=== PATIENT | female | born 1975 ===

== ENCOUNTER 2017-08-27 12:36 | Inpatient (IN) | payer MEDICAID ==
[2017-08-27 12:36] VITALS: BMI 37.8
[2017-08-27 14:34] LABS: VENOUS BLOOD GAS BASE EXCESS 1.2 mmol/L (0.0-2.0); VENOUS BLOOD GAS PCO2 41 mmHg (40-60); VENOUS BLOOD PH 7.41 (7.32-7.43)
[2017-08-27 14:40] LABS: BASO # 0.1 K/uL (0.0-0.2); BASO % 0.5 % (0.0-2.0); HEMATOCRIT 39.7 % (34.0-47.0); LYMPH # 0.8 K/uL (1.0-4.3); LYMPH % 7.1 % (20.0-40.0); MEAN CELL VOLUME 89.9 fl (81.0-99.0); MEAN CORPUSCULAR HEMOGLOBIN 29.8 pg (27.0-31.0); MEAN CORPUSCULAR HGB CONC 33.1 g/dL (33.0-37.0); MEAN PLATELET VOLUME 7.9 fl (7.2-11.7); MONO # 0.4 K/uL (0.0-0.8); MONO % 3.4 % (0.0-10.0); NEUT # 9.9 K/uL (1.8-7.0); NRBC % 0.1 % (0.0-0.0); PLATELET COUNT 248 K/uL (130-400); RED CELL DISTRIBUTION WIDTH 13.3 % (11.5-14.5); WHITE BLOOD COUNT 11.1 K/uL (4.8-10.8)
[2017-08-27 14:50] LABS: ALB/GLOB RATIO 1.3 (1.0-2.1); ALKALINE PHOSPHATASE 56 U/L (38-126); ALT/SGPT 29 U/L (9-52); AST/SGOT 22 U/L (14-36); BILIRUBIN,TOTAL 0.6 mg/dl (0.2-1.3); BLOOD UREA NITROGEN 15 mg/dl (7-17); CALCIUM 9.5 mg/dL (8.4-10.2); CARBON DIOXIDE 24 mmol/L (22-30); CHLORIDE 101 mmol/L (98-107); GFR AFRICAN-AMERICAN > 60; GLUCOSE,RANDOM 120 mg/dL (65-105); SODIUM 138 mmol/l (132-148); TOTAL PROTEIN 7.7 G/DL (6.3-8.2)
[2017-08-27 15:00] LABS: NEUTROPHIL 88 % (42-75); TOTAL CELLS COUNTED 100
[2017-08-27 15:18] LABS: THYROID STIMULATING HORMONE 0.67 mIU/ML (0.46-4.68)
[2017-08-27 15:22] LABS: RBC URINE 2 /hpf (0-3); URINE BACTERIA RARE (<OCC); URINE BILIRUBIN NEGATIVE (NEGATIVE); URINE BLOOD NEGATIVE (NEGATIVE); URINE COLOR STRAW (YELLOW); URINE GLUCOSE (UA) >=500 mg/dL (Normal); URINE KETONE 20 mg/dL (NEGATIVE); URINE LEUKOCYTE ESTERASE NEG Leu/uL (Negative); URINE PROTEIN 30 mg/dL (NEGATIVE); URINE UROBILINOGEN 0.2-1.0 mg/dL (0.2-1.0); WBC URINE 1 /hpf (0-5)
[2017-08-27] MEDS ORDERED: Piperacillin/Tazobact 3.375 GM in Sodium Chloride 0.9% 100 ML IVPB STA (15:30)
--- NOTE | 2017-08-27 15:47 | RAD ---
PROCEDURE: Radiographs of the left tibia and fibula. HISTORY: pain COMPARISON: None available. TECHNIQUE: Frontal and lateral views obtained. FINDINGS: BONES: No fracture or destructive lesion. JOINT SPACES: Unremarkable. OTHER FINDINGS: None. IMPRESSION: Unremarkable radiographs of the left tibia and fibula.
--- NOTE | 2017-08-27 15:48 | RAD ---
HISTORY: chest pain COMPARISON: Chest radiographs 07/10/2016 FINDINGS: LUNGS: No active pulmonary disease. PLEURA: No significant pleural effusion identified, no pneumothorax apparent. CARDIOVASCULAR: Normal. OSSEOUS STRUCTURES: No significant abnormalities. VISUALIZED UPPER ABDOMEN: Normal. OTHER FINDINGS: None. IMPRESSION: No interval acute cardiopulmonary disease appreciated.
--- NOTE | 2017-08-27 15:50 | US ---
HISTORY: Lower extremity pain. PRIORS: None. FINDINGS: 2-D, color and duplex Doppler analysis of the lower extremity venous circulation using routine protocol from the femoral veins through the popliteal veins. Venous compressibility: Normal. Flow and augmentation patterns: Normal. Visualized veins upper third of calf: Normal. Rodriguez cyst: None. Incidental finding(s): Morphologically, unremarkable lymph nodes. Left inguinal region IMPRESSION: No sonographic or Doppler evidence for DVT in left lower extremity.
--- NOTE | 2017-08-27 15:55 | ED PDOC ---
HPI: General Adult Time Seen by Provider: 08/27/17 13:51 Chief Complaint (Nursing): Lower Extremity Problem/Injury History Per: Patient, Supervisor Diagnostic (Shruthi Rodriguez) Additional Complaint(s): Pt. states earlier this week she sustained an atraumatic cut on her L foot. She was seen by Dr. Slade, manager commission, who told her to apply a cream to the cut but was not prescribed any oral antibiotics. States last night she develoepd a fever also she reports L leg pain that woke her up from sleep last night. Of note, pt. returned from [place] 2 weeks ago. Denies cough, congestion, abdominal pain, diarrhea, vomiting, hx of DVT or PE, chest pain, SOB, hemoptysis. Past Medical History Reviewed: Historical Data, Nursing Documentation, Vital Signs Vital Signs: Last Vital Signs Temp 98.0 F 08/27/17 18:33 Pulse 106 H 08/27/17 18:33 Resp 18 08/27/17 18:33 BP 134/81 08/27/17 18:33 Pulse Ox 96 08/27/17 18:33 - Medical History PMH: Diabetes, HTN, Hypercholesterolemia Denies: Chronic Kidney Disease - Surgical History Surgical History: (x1) - Family History Family History: States: No Known Family Hx - Immunization History Hx Tetanus Toxoid Vaccination: No Hx Influenza Vaccination: No Hx Pneumococcal Vaccination: No - Home Medications Home Medications: Ambulatory Orders Medication Instructions Recorded Atorvastatin [Lipitor] 20 mg PO HS 07/10/16 Empagliflozin [Jardiance] 25 mg PO DAILY 07/10/16 Ergocalciferol (Vitamin D2) 50,000 unit PO WE 07/10/16 [Vitamin D2] Valsartan [Diovan] 160 mg PO DAILY 07/10/16 FLUoxetine [Prozac] 20 mg PO DAILY 08/27/17 Famotidine [Pepcid] 20 mg PO DAILY 08/27/17 Ferrous Sulfate [Ferrous Sulfate] 325 mg PO BID 08/27/17 Glipizide [Glipizide ER] 2.5 mg PO DAILY 08/27/17 - Allergies Allergies/Adverse Reactions: Allergies Allergy/AdvReac Type Severity Reaction Status Date / Time ciprofloxacin [From Cipro] Allergy RASH Verified 07/10/16 11:38 ciprofloxacin HCl Allergy RASH Verified 11/03/16 11:38 [From Cipro] Review of Systems ROS Statement: Except As Marked, All Systems Reviewed And Found Negative Constitutional: Positive for: Fever Musculoskeletal: Positive for: Leg Pain Physical Exam - Reviewed Nursing Documentation Reviewed: Yes Vital Signs Reviewed: Yes - Physical Exam Appears: Positive for: Well, Non-toxic, No Acute Distress Head Exam: Positive for: ATRAUMATIC, NORMAL INSPECTION, NORMOCEPHALIC Skin: Positive for: Normal Color, Warm. Negative for: Rash Eye Exam: Positive for: EOMI, Normal appearance, PERRL ENT: Positive for: Normal ENT Inspection Neck: Positive for: Normal, Painless ROM Cardiovascular/Chest: Positive for: Regular Rate, Rhythm Respiratory: Positive for: CNT, Normal Breath Sounds Pulses-Dorsalis Pedis (L): 2+ Pulses-Dorsalis Pedis (R): 2+ Pulses-Femoral (L): 2+ Pulses-Femoral (R): 2+ Gastrointestinal/Abdominal: Positive for: Normal Exam, Bowel Sounds, Soft. Negative for: Tenderness Back: Positive for: Normal Inspection Extremity: Positive for: Normal ROM, Other (L medial surface of foot with linear superficial abrasion with surrounding erythema and swelling; L anterior leg with exquisite tenderness and faint erythema but no break in skin integrity ; no calf tenderness b/l). Negative for: Calf Tenderness (b/l) Neurologic/Psych: Positive for: Alert, Oriented - Laboratory Results Result Diagrams: 08/27/17 14:28 08/27/17 14:28 - ECG O2 Sat by Pulse Oximetry: 98 - Progress ED Course And Treament: Labs ordered. Duplex LLE ordered. CXR ordered. Zosyn IV, vancomycin IV ordered. Tylenol PO ordered. Pt. evaluated by Dr. Fletcher who recommends ESR and CRP. Pt. evaluated by Adilia, podiatry resident, who spoke with Dr. Slade and recommends 23 hr observation for IV abx. Duplex LLE vein: no DVT CXR: NAD Tib/Fib x-ray: no fx Case d/w Dr. Drew and arrangements made for 23 hr observation. Disposition - Clinical Impression Clinical Impression: Sepsis, Cellulitis - Patient ED Disposition Is Patient to be Admitted: No - Disposition Disposition Time: 16:38 Condition: FAIR - Pt Status Changed To: Hospital Disposition Of: Observation
--- NOTE | 2017-08-27 16:00 | CP.PCM.CON ---
History of Present Illness - History of Present Illness History of Present Illness: Podiatry Consult Note - Dr. Slade 41 year old female patient PMHx DM, HTN seen and evaluated in ED for left leg pain. Patient hemodynamically stable and NAD. Patient states in the middle of the night last night, her leg became red, hot, swollen, and painful. Denies any trauma to the area. Patient states her leg is extremely sensitive to touch and feels severe pain with pressure. States overnight she developed a fever as well which prompted her to present to [facility] ED. Patient also admits that earlier this week she sustained a superficial cut on the inside of her left heel. Patient states she saw Dr. Slade in office who told her to apply cream. Patient has no complaints to cut on left foot. Per chart, patient returned from [place] 2 weeks ago. Denies N/V/D/C/SOB. Review of Systems - Review of Systems All systems: reviewed and no additional remarkable complaints except (as per HPI ) Past Patient History - Infectious Disease Hx of Infectious Diseases: None - Past Medical History & Family History Past Medical History?: Yes - Past Social History Smoking Status: Never Smoked - CARDIAC Hx Hypercholesterolemia: Yes Hx Hypertension: Yes - PULMONARY Hx Respiratory Disorders: No - NEUROLOGICAL Hx Neurological Disorder: No - HEENT Hx HEENT Problems: No - RENAL Hx Chronic Kidney Disease: No - ENDOCRINE/METABOLIC Hx Endocrine Disorders: Yes Hx Diabetes Mellitus Type 2: Yes - HEMATOLOGICAL/ONCOLOGICAL Hx Blood Disorders: No - INTEGUMENTARY Hx Dermatological Problems: No - MUSCULOSKELETAL/RHEUMATOLOGICAL Hx Falls: No - GASTROINTESTINAL Hx Gastrointestinal Disorders: No - GENITOURINARY/GYNECOLOGICAL Hx Genitourinary Disorders: No - PSYCHIATRIC Hx Psychophysiologic Disorder: No Hx Substance Use: No - SURGICAL HISTORY Hx Surgeries: Yes Hx Section: Yes (x1) - ANESTHESIA Hx Anesthesia: Yes Hx Anesthesia Reactions: No Hx Malignant Hyperthermia: No Meds Allergies/Adverse Reactions: Allergies Allergy/AdvReac Type Severity Reaction Status Date / Time ciprofloxacin [From Cipro] Allergy RASH Verified 07/10/16 11:38 ciprofloxacin HCl Allergy RASH Verified 07/10/16 11:38 [From Cipro] - Medications Medications: Current Medications Vancomycin HCl 1 gm/ Sodium (Chloride) 250 mls @ 166.667 mls/hr IVPB STAT STA PRN Reason: Protocol Stop: 08/27/17 16:59 Last Admin: 08/27/17 15:59 Dose: 166.667 mls/hr Piperacillin Sod/Tazobactam (Sod 3.375 gm/ Sodium Chloride) 100 mls @ 100 mls/ hr IVPB STAT STA PRN Reason: Protocol Stop: 08/27/17 16:29 Physical Exam - Constitutional Appears: Well, Non-toxic, No Acute Distress - Extremities Exam Additional comments: VASC: DP and PT pulses palpable 2/4 b/l. CFT <3 seconds to all digits x10. Temperature warm to warm to RLE, hot to warm LLE. Increase in warmth noted circumfirentially around proximal half of left lower leg. Non-pitting edema noted to proximal half of left lower leg. No increase in warmth noted to superficial laceration medial aspect of left heel. NEURO: Gross sensation intact. DERM: Superficial laceration measuring approximately 3cm noted to medial aspect of left calcaneus; no drainage, purulence, fluctuance, undermining, tunneling, periwound erythema; no clinical signs of infection noted to laceration site. Proximal half of left lower leg appears erythematous with no open lesions noted. ORTHO: Severe pain on palpation erythematous skin left lower leg. Muscle strength 5/5 for all dorsiflexors, plantarflexors, inverters, and everters b/l. - Neurological Exam Neurological exam: Alert, Oriented x3 - Psychiatric Exam Psychiatric exam: Normal Affect, Normal Mood Results - Vital Signs Recent Vital Signs: Last Vital Signs Temp 101.4 F H 08/27/17 14:55 Pulse 110 H 08/27/17 14:55 Resp 17 08/27/17 14:43 BP 113/81 08/27/17 14:43 Pulse Ox 98 08/27/17 15:59 - Labs Result Diagrams: 08/27/17 14:28 08/27/17 14:28 Labs: Laboratory Results - last 24 hr 08/27/17 08/27/17 08/27/17 14:18 14:28 14:28 WBC 11.1 H D RBC 4.42 Hgb 13.2 Hct 39.7 MCV 89.9 MCH 29.8 MCHC 33.1 RDW 13.3 Plt Count 248 MPV 7.9 Neut % (Auto) 89.0 H Lymph % (Auto) 7.1 L [place] % (Auto) 3.4 Eos % (Auto) 0.0 Baso % (Auto) 0.5 Neut # 9.9 H Lymph # 0.8 L [place] # 0.4 Eos # 0.0 Baso # 0.1 Neutrophils % (Manual) 88 H Lymphocytes % (Manual) 9 L Monocytes % (Manual) 3 Platelet Estimate Normal RBC Morphology Normal pO2 20 L VBG pH 7.41 VBG pCO2 41 VBG HCO3 24.1 VBG Total CO2 27.3 VBG O2 Sat (Calc) 39.4 L VBG Base Excess 1.2 VBG Potassium 3.9 A-a O2 Difference 78.0 Sodium 135.0 138 Chloride 102.0 101 Glucose 128 H Lactate 2.0 FiO2 21.0 Crit Value Called To [place] Crit Value Called By 15 Crit Value Read Back Y Blood Gas Notified Time 1433 Potassium 4.0 Carbon Dioxide 24 Anion Gap 17 BUN 15 Creatinine 0.6 L Est GFR ( Amer) > 60 Est GFR (Non-Af Amer) > 60 Random Glucose 120 H Calcium 9.5 Total Bilirubin 0.6 AST 22 ALT 29 Alkaline Phosphatase 56 Total Protein 7.7 Albumin 4.3 Globulin 3.4 Albumin/Globulin Ratio 1.3 TSH 3rd Generation 0.67 Venous Blood Potassium 3.9 Urine Color Urine Clarity Urine pH Ur Specific [place] Urine Protein Urine Glucose (UA) Urine Ketones Urine Blood Urine Nitrate Urine Bilirubin Urine Urobilinogen Ur Leukocyte Esterase Urine RBC (Auto) Urine Microscopic WBC Ur Squamous Epith Cells Urine Bacteria 08/27/17 15:09 WBC RBC Hgb Hct MCV MCH MCHC RDW Plt Count MPV Neut % (Auto) Lymph % (Auto) [place] % (Auto) Eos % (Auto) Baso % (Auto) Neut # Lymph # [place] # Eos # Baso # Neutrophils % (Manual) Lymphocytes % (Manual) Monocytes % (Manual) Platelet Estimate RBC Morphology pO2 VBG pH VBG pCO2 VBG HCO3 VBG Total CO2 VBG O2 Sat (Calc) VBG Base Excess VBG Potassium A-a O2 Difference Sodium Chloride Glucose Lactate FiO2 Crit Value Called To Crit Value Called By Crit Value Read Back Blood Gas Notified Time Potassium Carbon Dioxide Anion Gap BUN Creatinine Est GFR ( Amer) Est GFR (Non-Af Amer) Random Glucose Calcium Total Bilirubin AST ALT Alkaline Phosphatase Total Protein Albumin Globulin Albumin/Globulin Ratio TSH 3rd Generation Venous Blood Potassium Urine Color Straw Urine Clarity Clear Urine pH 7.0 Ur Specific [place] 1.018 Urine Protein 30 Urine Glucose (UA) >=500 Urine Ketones 20 Urine Blood Negative Urine Nitrate Negative Urine Bilirubin Negative Urine Urobilinogen 0.2-1.0 Ur Leukocyte Esterase Neg Urine RBC (Auto) 2 Urine Microscopic WBC 1 Ur Squamous Epith Cells 2 Urine Bacteria Rare Assessment & Plan - Assessment and Plan (Free Text) Assessment: 41 year old female PMHx DM, HTN with 1) left leg cellulitis and 2) left foot superficial laceration, stable Plan: Patient seen and evaluated in ED Patient febrile in ED at 101.4, leukocytosis @ 11.1 L venous duplex reviewed - negative for DVT L tib-fib XR reviewed - unremarkable IV abx started in ED = Vancomycin, Zosyn Bacitracin applied to L medial heel laceration and dressed with DSD Discussed with attending, Dr. Slade, who recommends patient to be admitted for observation for IV abx. Patient agrees with plan. Podiatry will continue to follow patient while in house
[2017-08-27] MEDS: Insulin Regular 100 units/ml SC SCH (21:50)
[2017-08-27] MEDS: Enoxaparin 40 mg Syringe SC SCH (21:54)
[2017-08-28] MEDS: Piperacillin/Tazobact 3.375 GM in Sodium Chloride 0.9% 100 ML IVPB SCH ×3 (01:07→17:13)
[2017-08-28 05:55] LABS: BASO % 0.6 % (0.0-2.0); EOS # 0.1 K/uL (0.0-0.7); HEMATOCRIT 37.3 % (34.0-47.0); LYMPH % 17.1 % (20.0-40.0); MEAN CORPUSCULAR HEMOGLOBIN 29.8 pg (27.0-31.0); MEAN CORPUSCULAR HGB CONC 32.8 g/dL (33.0-37.0); MEAN PLATELET VOLUME 7.7 fl (7.2-11.7); MONO # 0.5 K/uL (0.0-0.8); MONO % 8.3 % (0.0-10.0); NEUT # 4.1 K/uL (1.8-7.0); NRBC % 0.1 % (0.0-0.0); RED CELL DISTRIBUTION WIDTH 13.2 % (11.5-14.5); WHITE BLOOD COUNT 5.6 K/uL (4.8-10.8)
--- NOTE | 2017-08-28 06:23 | CP.PCM.PN ---
Subjective - Date & Time of Evaluation Date of Evaluation: 08/28/17 Time of Evaluation: 06:23 - Subjective Subjective: Podiatry Progress Note - Dr. Slade 41 year old female patient PMHx DM, HTN seen and evaluated in ED for LLE cellulitis. Patient hemodynamically stable and NAD. Denies any acute events overnight. Patient reports continued pain and increased sensitivity to her left leg however significantly decreased from yesterday. Patient now complaining of pain, redness, and swelling to her left heel. Of note, patient states that she sustained the cut on her left heel approximately 2 weeks ago and states that when she was walking on it, the cut kept "spreading out and ," preventing closure of the wound. Patient states she was putting cream on the cut prior to presentation however is not able to recall its name. Denies N/V/F/D /C/SOB/calf pain. Objective - Vital Signs/Intake and Output Vital Signs (last 24 hours): Temp Pulse Resp BP Pulse Ox 98.7 F 88 19 112/76 96 08/28/17 01:00 08/28/17 01:00 08/28/17 01:00 08/28/17 01:00 08/28/17 01:00 - Medications Medications: Current Medications Atorvastatin Calcium (Lipitor) 20 mg PO HS [facility] Last Admin: 08/27/17 21:52 Dose: 20 mg Enoxaparin Sodium (Lovenox) 40 mg SC DAILY MATTHEW PRN Reason: Protocol Last Admin: 08/27/17 21:54 Dose: 40 mg Ergocalciferol (Drisdol 50,000 Intl Units Cap) 1 cap PO WE MATTHEW Famotidine (Pepcid) 20 mg PO DAILY MATTHEW Ferrous Sulfate (Feosol) 325 mg PO BID MATTHEW Fluoxetine HCl (Prozac) 20 mg PO DAILY MATTHEW Glipizide (Glucotrol Xl) 2.5 mg PO DAILY MATTHEW Vancomycin HCl 1 gm/ Sodium (Chloride) 250 mls @ 166.667 mls/hr IVPB Q12H MATTHEW PRN Reason: Protocol Last Admin: 08/28/17 03:28 Dose: 166.667 mls/hr Piperacillin Sod/Tazobactam (Sod 3.375 gm/ Sodium Chloride) 100 mls @ 100 mls/ hr IVPB Q8 MATTHEW PRN Reason: Protocol Last Admin: 08/28/17 01:07 Dose: 100 mls/hr Insulin Human Regular (Humulin R) 0 units SC ACHS MATTHEW PRN Reason: Protocol Last Admin: 08/27/17 21:50 Dose: Not Given Morphine Sulfate (Morphine) 2 mg IVP Q6 PRN PRN Reason: Pain, severe (8-10) Last Admin: 08/27/17 21:52 Dose: 2 mg Morphine Sulfate (Morphine) 1 mg IVP Q6 PRN PRN Reason: Pain, moderate (4-7) Ondansetron HCl (Zofran Inj) 4 mg IVP Q6 PRN PRN Reason: Nausea/Vomiting Valsartan (Diovan) 160 mg PO DAILY MATTHEW - Labs Labs: 08/28/17 05:40 08/27/17 14:28 - Constitutional Appears: Well, Non-toxic, No Acute Distress - Extremities Exam Additional comments: VASC: DP and PT pulses palpable 2/4 b/l. CFT <3 seconds to all digits x10. Temperature warm to warm to RLE; hot to warm LLE. Increase in warmth noted circumfirentially around proximal half of left lower leg however decreased from yesterday. Non-pitting edema noted to proximal half of left lower leg. Increase in warmth noted to superficial laceration medial aspect of left heel. NEURO: Gross sensation intact. DERM: Superficial laceration measuring approximately 3cm noted to medial aspect of left calcaneus; periwound erythema present; no drainage, purulence, fluctuance, undermining, tunneling; no clinical signs of infection noted to laceration site. Proximal half of left lower leg appears erythematous with no open lesions noted, decreasing ORTHO: Severe pain on palpation erythematous skin left lower leg. Pain on palpation left medial calcaneus. Muscle strength 5/5 for all dorsiflexors, plantarflexors, inverters, and everters b/l. - Neurological Exam Neurological Exam: Alert, Awake, Oriented x3 - Psychiatric Exam Psychiatric exam: Normal Affect, Normal Mood Assessment and Plan - Assessment and Plan (Free Text) Assessment: 41 year old female PMHx DM, HTN with 1) left leg cellulitis and 2) left foot superficial laceration Plan: Patient seen and evaluated in ED Discussed with attending, Dr. Slade Patient currently afebrile, WBC WNL 5.6 (yesterday 11.1) ESR 49, CRP 68.9 L venous duplex reviewed - negative for DVT L tib-fib XR reviewed - unremarkable Continue IV abx per medicine = Vancomycin, Zosyn Bacitracin applied to L medial heel laceration and dressed with DSD Podiatry will continue to follow patient while in house
[2017-08-28 06:57] LABS: BLOOD UREA NITROGEN 14 mg/dl (7-17); CALCIUM 8.8 mg/dL (8.4-10.2); CARBON DIOXIDE 27 mmol/L (22-30); CHLORIDE 102 mmol/L (98-107); GFR AFRICAN-AMERICAN > 60; GLUCOSE,RANDOM 136 mg/dL (65-105); MAGNESIUM 1.9 MG/DL (1.6-2.3); POTASSIUM 4.6 MMOL/L (3.6-5.0); SODIUM 136 mmol/l (132-148)
[2017-08-28] MEDS: Insulin Regular 100 units/ml SC SCH ×4 (07:01→21:30)
[2017-08-28 07:26] LABS: THYROID STIMULATING HORMONE 1.01 mIU/ML (0.46-4.68)
[2017-08-28] MEDS: GlipiZIDE 2.5 mg SR Tab PO SCH (08:54)
[2017-08-28] MEDS: Enoxaparin 40 mg Syringe SC SCH (08:55)
--- NOTE | 2017-08-28 17:57 | CP.PCM.HP ---
History of Present Illness - History of Present Illness History of Present Illness: CC: Fever and Leg Pain History of PResent Illness: A 41yoF with H/O DM II was in her [place] until earlier this week when she sustained an a traumatic cut on her L foot. She was seen by Dr. Slade, body mechanic apprentice, who told her to apply a cream to the cut but was not prescribed any oral antibiotics. States last night she developed a fever. Also she reports L leg pain 10/10 that woke her up from sleep last night. Recent travel to [place] 2 weeks ago. Denies cough, congestion, abdominal pain, diarrhea, vomiting, DVT or PE, chest pain, SOB, hemoptysis. Pain is relieved by IV morphine to 3-4/ 10. Present on Admission - Present on Admission Any Indicators Present on Admission: Yes History of DVT/PE: No History of Uncontrolled Diabetes: Yes Urinary Catheter: No Decubitus Ulcer Present: No Review of Systems - Review of Systems All systems: reviewed and no additional remarkable complaints except Past Patient History - Infectious Disease Hx of Infectious Diseases: None - Past Medical History & Family History Past Medical History?: Yes Past Family History: Reviewed and not pertinent - Past Social History Smoking Status: Never Smoked Alcohol: None Drugs: Denies - CARDIAC Hx Hypercholesterolemia: Yes Hx Hypertension: Yes - PULMONARY Hx Respiratory Disorders: No - NEUROLOGICAL Hx Neurological Disorder: No - HEENT Hx HEENT Problems: No - RENAL Hx Chronic Kidney Disease: No - ENDOCRINE/METABOLIC Hx Endocrine Disorders: Yes Hx Diabetes Mellitus Type 2: Yes - HEMATOLOGICAL/ONCOLOGICAL Hx Blood Disorders: No - INTEGUMENTARY Hx Dermatological Problems: No - MUSCULOSKELETAL/RHEUMATOLOGICAL Hx Falls: No - GASTROINTESTINAL Hx Gastrointestinal Disorders: No - GENITOURINARY/GYNECOLOGICAL Hx Genitourinary Disorders: No - PSYCHIATRIC Hx Psychophysiologic Disorder: No Hx Substance Use: No - SURGICAL HISTORY Hx Surgeries: Yes Hx Section: Yes (x1) - ANESTHESIA Hx Anesthesia: Yes Hx Anesthesia Reactions: No Hx Malignant Hyperthermia: No Meds Allergies/Adverse Reactions: Allergies Allergy/AdvReac Type Severity Reaction Status Date / Time ciprofloxacin [From Cipro] Allergy RASH Verified 07/10/16 11:38 ciprofloxacin HCl Allergy RASH Verified 07/10/16 11:38 [From Cipro] Physical Exam - Constitutional Appears: Well, No Acute Distress - Head Exam Head Exam: ATRAUMATIC, NORMAL INSPECTION, NORMOCEPHALIC - Eye Exam Eye Exam: EOMI, Normal appearance, PERRL Pupil Exam: NORMAL ACCOMODATION, PERRL - ENT Exam ENT Exam: Mucous Membranes Moist, Normal Exam - Neck Exam Neck exam: Positive for: Normal Inspection - Respiratory Exam Respiratory Exam: Clear to Auscultation Bilateral, NORMAL BREATHING PATTERN - Cardiovascular Exam Cardiovascular Exam: REGULAR RHYTHM, +S1, +S2 - GI/Abdominal Exam GI & Abdominal Exam: Normal Bowel Sounds, Soft. absent: Tenderness - Exam External exam: NORMAL EXTERNAL EXAM - Extremities Exam Additional comments: Left Leg Linear Superficial Ulceration with Warm extending to lower Leg with severe tenderness. - Back Exam Back exam: NORMAL INSPECTION. absent: CVA tenderness (L), CVA tenderness (R) - Neurological Exam Neurological exam: Alert, CN II-XII Intact, Normal Gait, Oriented x3, Reflexes Normal - Psychiatric Exam Psychiatric exam: Normal Affect, Normal Mood - Skin Skin Exam: Dry, Intact, Normal Color, Warm Results - Vital Signs Recent Vital Signs: Last Vital Signs Temp 97.9 F 08/28/17 16:20 Pulse 72 08/28/17 16:20 Resp 18 08/28/17 16:20 BP 124/80 08/28/17 16:20 Pulse Ox 97 08/28/17 16:20 - Labs Result Diagrams: 08/28/17 05:40 08/28/17 05:40 Labs: Laboratory Results - last 24 hr 08/27/17 08/27/17 08/27/17 16:57 17:30 17:30 WBC RBC Hgb Hct MCV MCH MCHC RDW Plt Count MPV Neut % (Auto) Lymph % (Auto) [place] % (Auto) Eos % (Auto) Baso % (Auto) Neut # Lymph # [place] # Eos # Baso # ESR 49 H Sodium Potassium Chloride Carbon Dioxide Anion Gap BUN Creatinine Est GFR ( Amer) Est GFR (Non-Af Amer) POC Glucose (mg/dL) Random Glucose Hemoglobin A1c Calcium Magnesium C-Reactive Prot, Quant 68.9 H TSH 3rd Generation Influenza Typ A,B (EIA) Negative for flu a/b 08/27/17 08/28/17 08/28/17 21:40 05:40 05:40 WBC 5.6 RBC 4.10 Hgb 12.2 Hct 37.3 MCV 91.0 MCH 29.8 MCHC 32.8 L RDW 13.2 Plt Count 213 MPV 7.7 Neut % (Auto) 73.0 Lymph % (Auto) 17.1 L [place] % (Auto) 8.3 Eos % (Auto) 1.0 Baso % (Auto) 0.6 Neut # 4.1 Lymph # 1.0 [place] # 0.5 Eos # 0.1 Baso # 0.0 ESR Sodium 136 Potassium 4.6 Chloride 102 Carbon Dioxide 27 Anion Gap 12 BUN 14 Creatinine 0.8 Est GFR ( Amer) > 60 Est GFR (Non-Af Amer) > 60 POC Glucose (mg/dL) 108 Random Glucose 136 H Hemoglobin A1c Calcium 8.8 Magnesium 1.9 C-Reactive Prot, Quant TSH 3rd Generation 1.01 Influenza Typ A,B (EIA) 08/28/17 08/28/17 08/28/17 05:40 06:18 10:56 WBC RBC Hgb Hct MCV MCH MCHC RDW Plt Count MPV Neut % (Auto) Lymph % (Auto) [place] % (Auto) Eos % (Auto) Baso % (Auto) Neut # Lymph # [place] # Eos # Baso # ESR Sodium Potassium Chloride Carbon Dioxide Anion Gap BUN Creatinine Est GFR ( Amer) Est GFR (Non-Af Amer) POC Glucose (mg/dL) 133 H 172 H Random Glucose Hemoglobin A1c 7.4 H D Calcium Magnesium C-Reactive Prot, Quant TSH 3rd Generation Influenza Typ A,B (EIA) 08/28/17 15:49 WBC RBC Hgb Hct MCV MCH MCHC RDW Plt Count MPV Neut % (Auto) Lymph % (Auto) [place] % (Auto) Eos % (Auto) Baso % (Auto) Neut # Lymph # [place] # Eos # Baso # ESR Sodium Potassium Chloride Carbon Dioxide Anion Gap BUN Creatinine Est GFR ( Amer) Est GFR (Non-Af Amer) POC Glucose (mg/dL) 134 H Random Glucose Hemoglobin A1c Calcium Magnesium C-Reactive Prot, Quant TSH 3rd Generation Influenza Typ A,B (EIA) - Imaging and Cardiology Venous US Status: Report reviewed by me Additional comment: LE: No DVT Left Tibia/Fibula X-ray Status: Report reviewed by me Additional comment: IMPRESSION: Unremarkable radiographs of the left tibia and fibula. Assessment & Plan (1) Foot ulcer, left Assessment and Plan: with Cellulitis R/O OM Blood and wound Culture IV Vancomycin/Zosyn Pain Medication PRN MRI of the Left Foot R/O OM Rn Clinician On board Status: Acute Priority: High (2) Diabetes mellitus Status: Chronic (3) Essential hypertension Status: Chronic Priority: Low (4) DVT (deep venous thrombosis) Status: Chronic Priority: Low
[2017-08-29] MEDS: Piperacillin/Tazobact 3.375 GM in Sodium Chloride 0.9% 100 ML IVPB SCH ×3 (01:59→17:03)
[2017-08-29] MEDS: Insulin Regular 100 units/ml SC SCH ×4 (06:57→21:49)
[2017-08-29] MEDS: Enoxaparin 40 mg Syringe SC SCH (09:45)
[2017-08-29] MEDS: GlipiZIDE 2.5 mg SR Tab PO SCH (09:45)
--- NOTE | 2017-08-29 11:51 | MRI ---
EXAM: MR Left Lower Extremity Without Intravenous Contrast, Foot CLINICAL HISTORY: 41 years old, female; Signs and symptoms; Cellulitis; Ankle; Left; Additional info: R/O om; Left foot cellulitis and wound TECHNIQUE: Multiplanar magnetic resonance images of the left foot without intravenous contrast. COMPARISON: No relevant prior studies available. FINDINGS: LIGAMENTS: Medial collateral: Unremarkable. Lateral collateral: Unremarkable. Lisfranc: Unremarkable. TENDONS: Flexor: There is fluid along the posterior aspect of the flexor hallucis longus tendon representing tenosynovitis. No signal is seen within the tendon to suggest tendon tear. This fluid is poorly defined to be a ganglion cyst. The tendon itself appears intact. Extensor: Unremarkable. Peroneal: Unremarkable. Tibialis anterior: Unremarkable. Tibialis posterior: Unremarkable. Muscles: Unremarkable. Fluid: Unremarkable. No joint effusion. Sinus tarsi: Unremarkable. Tarsal tunnel: Unremarkable. Plantar fascia: Unremarkable. Cartilage: Unremarkable. Bones/joints: There is tarsal bossing with degenerative changes involving the talonavicular joint. There is mild flattening of the midfoot. Soft tissues: The subcutaneous soft tissues demonstrate edema involving the mid and posterior aspect of the medial soft tissues of the ankle representing edema versus cellulitis. Other findings: A marker is placed on the medial aspect of the foot. IMPRESSION: 1. The subcutaneous soft tissues demonstrate edema involving the mid and posterior aspect of the medial soft tissues of the ankle representing edema versus cellulitis. 2. There is fluid along the posterior aspect of the flexor hallucis longus tendon representing tenosynovitis. No signal is seen within the tendon to suggest tendon tear. This fluid is poorly defined to be a ganglion cyst. The tendon itself appears intact. 3. No evidence of abscess or osteomyelitis.
--- NOTE | 2017-08-29 16:29 | CP.PCM.PN ---
Subjective - Date & Time of Evaluation Date of Evaluation: 08/29/17 Time of Evaluation: 12:15 - Subjective Subjective: Podiatry Progress Note - Dr. Slade 41 year old female with PMHx of DM, HTN seen and evaluated for LLE cellulitis. Patient is AAOx3 and is in NAD. Denies any acute events overnight. Patient reports continued pain and increased sensitivity to her left leg however significantly decreased from yesterday. Patient agrees that the redness has decreased since yesterday as well. Denies N/V/F/D/C/SOB/calf pain. Objective - Vital Signs/Intake and Output Vital Signs (last 24 hours): Temp Pulse Resp BP Pulse Ox 97.5 F L 78 17 124/89 97 08/29/17 15:45 08/29/17 15:45 08/29/17 15:45 08/29/17 15:45 08/29/17 15:45 - Medications Medications: Current Medications Atorvastatin Calcium (Lipitor) 20 mg PO HS [facility] Last Admin: 08/28/17 21:30 Dose: 20 mg Enoxaparin Sodium (Lovenox) 40 mg SC DAILY [facility] PRN Reason: Protocol Last Admin: 08/29/17 09:45 Dose: 40 mg Ergocalciferol (Drisdol 50,000 Intl Units Cap) 1 cap PO [facility] Famotidine (Pepcid) 20 mg PO DAILY [facility] Last Admin: 08/29/17 09:45 Dose: 20 mg Ferrous Sulfate (Feosol) 325 mg PO BID [facility] Last Admin: 08/29/17 09:45 Dose: 325 mg Fluoxetine HCl (Prozac) 20 mg PO DAILY [facility] Last Admin: 08/29/17 09:45 Dose: 20 mg Glipizide (Glucotrol Xl) 2.5 mg PO DAILY [facility] Last Admin: 08/29/17 09:45 Dose: 2.5 mg Vancomycin HCl 1 gm/ Sodium (Chloride) 250 mls @ 166.667 mls/hr IVPB Q12H [facility] PRN Reason: Protocol Last Admin: 08/29/17 03:55 Dose: 166.667 mls/hr Piperacillin Sod/Tazobactam (Sod 3.375 gm/ Sodium Chloride) 100 mls @ 100 mls/ hr IVPB Q8 [facility] PRN Reason: Protocol Last Admin: 08/29/17 09:44 Dose: 100 mls/hr Insulin Human Regular (Humulin R) 0 units SC ACHS [facility] PRN Reason: Protocol Last Admin: 08/29/17 11:41 Dose: 1 unit Morphine Sulfate (Morphine) 2 mg IVP Q6 PRN PRN Reason: Pain, severe (8-10) Last Admin: 08/29/17 07:41 Dose: 2 mg Morphine Sulfate (Morphine) 1 mg IVP Q6 PRN PRN Reason: Pain, moderate (4-7) Ondansetron HCl (Zofran Inj) 4 mg IVP Q6 PRN PRN Reason: Nausea/Vomiting Valsartan (Diovan) 160 mg PO DAILY [facility] Last Admin: 08/29/17 09:45 Dose: 160 mg - Labs Labs: 08/28/17 05:40 08/28/17 05:40 - Constitutional Appears: Well, Non-toxic, No Acute Distress - Extremities Exam Additional comments: VASC: DP and PT pulses palpable 2/4 b/l. CFT <3 seconds to all digits x10. Temperature warm to warm to RLE; hot to warm LLE. Increase in warmth noted circumfirentially around proximal half of left lower leg however decreased from yesterday. Non-pitting edema noted to proximal half of left lower leg. Increase in warmth noted to superficial laceration medial aspect of left heel. DERM: Superficial laceration measuring approximately 3cm noted to medial aspect of left calcaneus; no drainage, purulence, fluctuance, undermining, tunneling; no clinical signs of infection noted to laceration site. Proximal half of left lower leg appears erythematous with no open lesions noted - this appears to be decreasing NEURO: Gross sensation intact. ORTHO: pain on palpation mildly erythematous skin on left lower leg. Muscle strength 5/5 for all dorsiflexors, plantarflexors, inverters, and everters b/l. - Neurological Exam Neurological Exam: Alert, Awake, Oriented x3 - Psychiatric Exam Psychiatric exam: Normal Affect, Normal Mood Assessment and Plan - Assessment and Plan (Free Text) Assessment: 41 year old female with PMHx of DM, HTN with 1) left leg cellulitis and 2) left foot superficial laceration Plan: Patient seen and evaluated in ED Discussed with attending, Dr. Slade Patient currently afebrile, WBC WNL 5.6 (as of yesterday) ESR 49, CRP 68.9 L venous duplex reviewed - negative for DVT L tib-fib XR reviewed - unremarkable L MRI: No evidence of OM Continue IV abx per medicine = Vancomycin, Zosyn Bacitracin applied to L medial heel laceration and dressed with DSD Patient is stable from podiatry standpoint Follow up with Dr. Slade once discharged from the hospital Podiatry will continue to follow patient while in house
[2017-08-30] MEDS: Piperacillin/Tazobact 3.375 GM in Sodium Chloride 0.9% 100 ML IVPB SCH ×3 (01:58→16:43)
[2017-08-30] MEDS: Insulin Regular 100 units/ml SC SCH ×4 (06:54→22:09)
[2017-08-30] MEDS: Enoxaparin 40 mg Syringe SC SCH (08:51)
[2017-08-30] MEDS: GlipiZIDE 2.5 mg SR Tab PO SCH (08:51)
--- NOTE | 2017-08-30 14:52 | CP.PCM.PN ---
Subjective - Date & Time of Evaluation Date of Evaluation: 08/30/17 Time of Evaluation: 14:43 - Subjective Subjective: Podiatry Progress Note - Dr. Slade 41 year old female with PMHx of DM, HTN seen and evaluated for LLE cellulitis. Patient is AAOx3 and is in NAD. Denies any acute events overnight. Patient reports continued pain and increased sensitivity to her left leg however significantly decreased from yesterday. Patient agrees that the redness has resolved completely. Admits that she has pain when she moves her toes on the back of his ankle. States that she is scared to put her weight down. Denies N/V/ F/D/C/SOB/calf pain. Objective - Vital Signs/Intake and Output Vital Signs (last 24 hours): Temp Pulse Resp BP Pulse Ox 98.0 F 84 18 123/59 L 97 08/30/17 07:20 08/30/17 07:20 08/30/17 07:20 08/30/17 07:20 08/30/17 07:20 - Medications Medications: Current Medications Atorvastatin Calcium (Lipitor) 20 mg PO HS [facility] Last Admin: 08/29/17 21:50 Dose: 20 mg Enoxaparin Sodium (Lovenox) 40 mg SC DAILY [facility] PRN Reason: Protocol Last Admin: 08/30/17 08:51 Dose: 40 mg Ergocalciferol (Drisdol 50,000 Intl Units Cap) [address] [facility] Famotidine (Pepcid) 20 mg PO DAILY [facility] Last Admin: 08/30/17 08:56 Dose: 20 mg Ferrous Sulfate (Feosol) 325 mg PO BID [facility] Last Admin: 08/30/17 08:51 Dose: 325 mg Fluoxetine HCl (Prozac) 20 mg PO DAILY [facility] Last Admin: 08/30/17 08:56 Dose: 20 mg Glipizide (Glucotrol Xl) 2.5 mg PO DAILY [facility] Last Admin: 08/30/17 08:51 Dose: 2.5 mg Piperacillin Sod/Tazobactam (Sod 3.375 gm/ Sodium Chloride) 100 mls @ 100 mls/ hr IVPB Q8 [facility] PRN Reason: Protocol Last Admin: 08/30/17 09:08 Dose: 100 mls/hr Vancomycin HCl 1 gm/ Sodium (Chloride) 250 mls @ 166.667 mls/hr IVPB Q12@0500, 1700 [facility] PRN Reason: Protocol Last Admin: 08/30/17 04:02 Dose: 166.667 mls/hr Insulin Human Regular (Humulin R) 0 units SC ACHS [facility] PRN Reason: Protocol Last Admin: 08/30/17 12:36 Dose: 2 unit Morphine Sulfate (Morphine) 2 mg IVP Q6 PRN PRN Reason: Pain, severe (8-10) Last Admin: 08/30/17 09:07 Dose: 2 mg Morphine Sulfate (Morphine) 1 mg IVP Q6 PRN PRN Reason: Pain, moderate (4-7) Ondansetron HCl (Zofran Inj) 4 mg IVP Q6 PRN PRN Reason: Nausea/Vomiting Valsartan (Diovan) 160 mg PO DAILY [facility] Last Admin: 08/30/17 08:51 Dose: 160 mg - Labs Labs: 08/28/17 05:40 08/28/17 05:40 - Constitutional Appears: Well, Non-toxic, No Acute Distress - Extremities Exam Additional comments: VASC: DP and PT pulses palpable 2/4 b/l. CFT <3 seconds to all digits x10. Temperature warm to warm to RLE; warm to warm on LLE. minimal Non-pitting edema noted to proximal half of left lower leg which appears to be resolving from yesterday DERM: Superficial laceration measuring approximately 3cm noted to medial aspect of left calcaneus; no drainage, purulence, fluctuance, undermining, tunneling; no clinical signs of infection noted to laceration site. Proximal half of left lower leg appears erythematous with no open lesions noted - this appears to be resolved NEURO: Gross sensation intact. ORTHO: pain on palpation of the posterior ankle and during ROM at the level of MTPJ as well as ankle joint. Muscle strength 5/5 for all dorsiflexors, plantarflexors, inverters, and everters b/l. - Neurological Exam Neurological Exam: Alert, Awake, Oriented x3 - Psychiatric Exam Psychiatric exam: Normal Affect, Normal Mood Assessment and Plan - Assessment and Plan (Free Text) Assessment: 41 year old female with PMHx of DM, HTN with 1) left leg cellulitis and 2) left foot superficial laceration Plan: Patient seen and evaluated in ED Discussed with attending, Dr. Slade Patient currently afebrile, WBC WNL 5.6 (as of 08/28) ESR 49, CRP 68.9 L venous duplex reviewed - negative for DVT L tib-fib XR reviewed - unremarkable L MRI: No evidence of OM Continue IV abx per medicine = Vancomycin, Zosyn Bacitracin applied to L medial heel laceration and dressed with DSD Patient is stable from podiatry standpoint Follow up with Dr. Slade once discharged from the hospital Podiatry will continue to follow patient while in house
[2017-08-30 17:53] LABS: RBC URINE 300 /hpf (0-3); URINE BACTERIA RARE (<OCC); URINE BILIRUBIN NEGATIVE (NEGATIVE); URINE BLOOD LARGE (NEGATIVE); URINE COLOR YELLOW (YELLOW); URINE GLUCOSE (UA) >=500 mg/dL (Normal); URINE KETONE NEGATIVE (NEGATIVE); URINE LEUKOCYTE ESTERASE TRACE Leu/uL (Negative); URINE PROTEIN 30 mg/dL (NEGATIVE); URINE UROBILINOGEN 0.2-1.0 mg/dL (0.2-1.0); WBC URINE 12 /hpf (0-5)
--- NOTE | 2017-08-31 00:23 | CP.PCM.PN ---
Subjective - Date & Time of Evaluation Date of Evaluation: 08/29/17 Time of Evaluation: 17:15 Objective - Vital Signs/Intake and Output Vital Signs (last 24 hours): Temp Pulse Resp BP Pulse Ox 98.1 F 77 20 124/81 96 08/30/17 15:30 08/30/17 15:30 08/30/17 15:30 08/30/17 15:30 08/30/17 15:30 - Medications Medications: Current Medications Atorvastatin Calcium (Lipitor) 20 mg PO HS [facility] Last Admin: 08/30/17 22:09 Dose: 20 mg Ergocalciferol (Drisdol 50,000 Intl Units Cap) 1 cap PO [facility] Famotidine (Pepcid) 20 mg PO DAILY [facility] Last Admin: 08/30/17 08:56 Dose: 20 mg Ferrous Sulfate (Feosol) 325 mg PO BID [facility] Last Admin: 08/30/17 16:43 Dose: 325 mg Fluoxetine HCl (Prozac) 20 mg PO DAILY [facility] Last Admin: 08/30/17 08:56 Dose: 20 mg Glipizide (Glucotrol Xl) 2.5 mg PO DAILY [facility] Last Admin: 08/30/17 08:51 Dose: 2.5 mg Piperacillin Sod/Tazobactam (Sod 3.375 gm/ Sodium Chloride) 100 mls @ 100 mls/ hr IVPB Q8 [facility] PRN Reason: Protocol Last Admin: 08/30/17 16:43 Dose: 100 mls/hr Vancomycin HCl 1 gm/ Sodium (Chloride) 250 mls @ 166.667 mls/hr IVPB Q12@0500, 1700 [facility] PRN Reason: Protocol Last Admin: 08/30/17 16:44 Dose: 166.667 mls/hr Insulin Human Regular (Humulin R) 0 units SC ACHS [facility] PRN Reason: Protocol Last Admin: 08/30/17 22:09 Dose: Not Given Ondansetron HCl (Zofran Inj) 4 mg IVP Q6 PRN PRN Reason: Nausea/Vomiting Valsartan (Diovan) 160 mg PO DAILY [facility] Last Admin: 08/30/17 08:51 Dose: 160 mg - Labs Labs: 08/28/17 05:40 08/28/17 05:40 Assessment and Plan (1) Foot ulcer, left Status: Acute (2) Diabetes mellitus Status: Chronic (3) Essential hypertension Status: Chronic (4) DVT (deep venous thrombosis) Status: Chronic
--- NOTE | 2017-08-31 00:25 | CP.PCM.PN ---
Subjective - Date & Time of Evaluation Date of Evaluation: 08/30/17 Time of Evaluation: 12:00 Objective - Vital Signs/Intake and Output Vital Signs (last 24 hours): Temp Pulse Resp BP Pulse Ox 98.1 F 77 20 124/81 96 08/30/17 15:30 08/30/17 15:30 08/30/17 15:30 08/30/17 15:30 08/30/17 15:30 - Medications Medications: Current Medications Atorvastatin Calcium (Lipitor) 20 mg PO HS [facility] Last Admin: 08/30/17 22:09 Dose: 20 mg Ergocalciferol (Drisdol 50,000 Intl Units Cap) 1 cap PO [facility] Famotidine (Pepcid) 20 mg PO DAILY [facility] Last Admin: 08/30/17 08:56 Dose: 20 mg Ferrous Sulfate (Feosol) 325 mg PO BID [facility] Last Admin: 08/30/17 16:43 Dose: 325 mg Fluoxetine HCl (Prozac) 20 mg PO DAILY [facility] Last Admin: 08/30/17 08:56 Dose: 20 mg Glipizide (Glucotrol Xl) 2.5 mg PO DAILY [facility] Last Admin: 08/30/17 08:51 Dose: 2.5 mg Piperacillin Sod/Tazobactam (Sod 3.375 gm/ Sodium Chloride) 100 mls @ 100 mls/ hr IVPB Q8 [facility] PRN Reason: Protocol Last Admin: 08/30/17 16:43 Dose: 100 mls/hr Vancomycin HCl 1 gm/ Sodium (Chloride) 250 mls @ 166.667 mls/hr IVPB Q12@0500, 1700 [facility] PRN Reason: Protocol Last Admin: 08/30/17 16:44 Dose: 166.667 mls/hr Insulin Human Regular (Humulin R) 0 units SC ACHS [facility] PRN Reason: Protocol Last Admin: 08/30/17 22:09 Dose: Not Given Ondansetron HCl (Zofran Inj) 4 mg IVP Q6 PRN PRN Reason: Nausea/Vomiting Valsartan (Diovan) 160 mg PO DAILY [facility] Last Admin: 08/30/17 08:51 Dose: 160 mg - Labs Labs: 08/28/17 05:40 08/28/17 05:40 Assessment and Plan (1) Foot ulcer, left Status: Acute (2) Diabetes mellitus Status: Chronic (3) Essential hypertension Status: Chronic (4) DVT (deep venous thrombosis) Status: Chronic
[2017-08-31] MEDS: Piperacillin/Tazobact 3.375 GM in Sodium Chloride 0.9% 100 ML IVPB SCH ×3 (00:33→16:38)
[2017-08-31 08:12] VITALS: RESP 20
[2017-08-31] MEDS: GlipiZIDE 2.5 mg SR Tab PO SCH (09:02)
[2017-08-31] MEDS: Insulin Regular 100 units/ml SC SCH ×3 (09:02→16:41)
--- NOTE | 2017-08-31 15:24 | CP.PCM.PN ---
Subjective - Date & Time of Evaluation Date of Evaluation: 08/31/17 Time of Evaluation: 15:21 - Subjective Subjective: Podiatry Progress Note - Dr. Slade 41 year old female with PMHx of DM, HTN seen and evaluated for LLE cellulitis. Patient is AAOx3 and is in NAD. Denies any acute events overnight. Patient reports continued pain and increased sensitivity to her left leg however significantly decreased from yesterday. Patient agrees that the redness has resolved completely. Admits that she has pain when she moves her toes on the back of his ankle. States that she is scared to put her weight down. Denies N/V/ F/D/C/SOB/calf pain. Objective - Vital Signs/Intake and Output Vital Signs (last 24 hours): Temp Pulse Resp BP Pulse Ox 97.9 F 80 20 142/79 93 L 08/31/17 08:11 08/31/17 08:11 08/31/17 08:11 08/31/17 08:11 08/31/17 08:11 - Medications Medications: Current Medications Atorvastatin Calcium (Lipitor) 20 mg PO HS [facility] Last Admin: 08/30/17 22:09 Dose: 20 mg Ergocalciferol (Drisdol 50,000 Intl Units Cap) 1 cap PO [facility] Famotidine (Pepcid) 20 mg PO DAILY [facility] Last Admin: 08/31/17 09:02 Dose: 20 mg Ferrous Sulfate (Feosol) 325 mg PO BID [facility] Last Admin: 08/31/17 09:02 Dose: 325 mg Fluoxetine HCl (Prozac) 20 mg PO DAILY [facility] Last Admin: 08/31/17 09:02 Dose: 20 mg Glipizide (Glucotrol Xl) 2.5 mg PO DAILY [facility] Last Admin: 08/31/17 09:02 Dose: 2.5 mg Piperacillin Sod/Tazobactam (Sod 3.375 gm/ Sodium Chloride) 100 mls @ 100 mls/ hr IVPB Q8 [facility] PRN Reason: Protocol Last Admin: 08/31/17 09:03 Dose: 100 mls/hr Vancomycin HCl 1 gm/ Sodium (Chloride) 250 mls @ 166.667 mls/hr IVPB Q12@0500, 1700 [facility] PRN Reason: Protocol Last Admin: 08/31/17 04:24 Dose: 166.667 mls/hr Insulin Human Regular (Humulin R) 0 units SC ACHS [facility] PRN Reason: Protocol Last Admin: 08/31/17 12:31 Dose: 1 unit Ondansetron HCl (Zofran Inj) 4 mg IVP Q6 PRN PRN Reason: Nausea/Vomiting Valsartan (Diovan) 160 mg PO DAILY [facility] Last Admin: 08/31/17 09:01 Dose: 160 mg - Labs Labs: 08/28/17 05:40 08/28/17 05:40 - Constitutional Appears: Well, Non-toxic, No Acute Distress - Extremities Exam Extremities Exam: absent: Calf Tenderness Additional comments: VASC: DP and PT pulses palpable 2/4 b/l. CFT <3 seconds to all digits x10. Temperature warm to warm to RLE; warm to warm on LLE. minimal Non-pitting edema noted to proximal half of left lower leg which appears to be resolving from yesterday DERM: Superficial laceration measuring approximately 3cm noted to medial aspect of left calcaneus; no drainage, purulence, fluctuance, undermining, tunneling; no clinical signs of infection noted to laceration site. Proximal half of left lower leg appears erythematous with no open lesions noted - this appears to be resolved NEURO: Gross sensation intact. ORTHO: pain on palpation of the posterior ankle and during ROM at the level of MTPJ as well as ankle joint. Muscle strength 5/5 for all dorsiflexors, plantarflexors, inverters, and everters b/l. - Neurological Exam Neurological Exam: Alert, Awake, Oriented x3 - Psychiatric Exam Psychiatric exam: Normal Affect, Normal Mood Assessment and Plan - Assessment and Plan (Free Text) Assessment: 41 year old female with PMHx of DM, HTN with 1) left leg cellulitis and 2) left foot superficial laceration 3). Posterior leg muscle tenosynovitis/tendonitis Plan: Patient seen and evaluated in ED Discussed with attending, Dr. Slade Patient currently afebrile, WBC WNL 5.6 (as of 08/28) ESR 49, CRP 68.9 L venous duplex reviewed - negative for DVT L tib-fib XR reviewed - unremarkable L MRI: No evidence of OM Continue IV abx per medicine = Vancomycin, Zosyn Patient is stable from podiatry standpoint Follow up with Dr. Slade once discharged from the hospital Podiatry will continue to follow patient while in house
[2017-08-31 16:37] VITALS: BP 150/69; PULSE 64; TEMP 98.4; O2SAT 96
--- NOTE | 2017-08-31 17:41 | CP.PCM.DIS ---
Provider - Provider Date of Admission: 08/28/17 10:25 Attending physician: Tianna Drew MD Time Spent in preparation of Discharge (in minutes): 35 Diagnosis - Discharge Diagnosis (1) Foot ulcer, left Status: Acute Priority: High (2) Diabetes mellitus Status: Chronic (3) Essential hypertension Status: Chronic Priority: Low (4) DVT (deep venous thrombosis) Status: Chronic Priority: Low Hospital Course - Lab Results Lab Results: Micro Results 08/27/17 17:50 Blood-Venous Blood Culture - Preliminary NO GROWTH AFTER 3 DAYS 08/27/17 17:20 Blood-Venous Blood Culture - Preliminary NO GROWTH AFTER 3 DAYS 08/27/17 15:09 Urine Urine Culture - Final Staphylococcus Aureus Beta Hemolytic Strep Group B Most Recent Lab Values WBC 5.6 K/uL (4.8-10.8) 08/28/17 05:40 RBC 4.10 Mil/uL (3.80-5.20) 08/28/17 05:40 Hgb 12.2 g/dL (12.0-16.0) 08/28/17 05:40 Hct 37.3 % (34.0-47.0) 08/28/17 05:40 MCV 91.0 fl (81.0-99.0) 08/28/17 05:40 MCH 29.8 pg (27.0-31.0) 08/28/17 05:40 MCHC 32.8 g/dL (33.0-37.0) L 08/28/17 05:40 RDW 13.2 % (11.5-14.5) 08/28/17 05:40 Plt Count 213 K/uL (130-400) 08/28/17 05:40 MPV 7.7 fl (7.2-11.7) 08/28/17 05:40 Neut % (Auto) 73.0 % (50.0-75.0) 08/28/17 05:40 Lymph % (Auto) 17.1 % (20.0-40.0) L 08/28/17 05:40 Hendry % (Auto) 8.3 % (0.0-10.0) 08/28/17 05:40 Eos % (Auto) 1.0 % (0.0-4.0) 08/28/17 05:40 Baso % (Auto) 0.6 % (0.0-2.0) 08/28/17 05:40 Neut # 4.1 K/uL (1.8-7.0) 08/28/17 05:40 Lymph # 1.0 K/uL (1.0-4.3) 08/28/17 05:40 Hendry # 0.5 K/uL (0.0-0.8) 08/28/17 05:40 Eos # 0.1 K/uL (0.0-0.7) 08/28/17 05:40 Baso # 0.0 K/uL (0.0-0.2) 08/28/17 05:40 Neutrophils % (Manual) 88 % (42-75) H 08/27/17 14:28 Lymphocytes % (Manual) 9 % (20-50) L 08/27/17 14:28 Monocytes % (Manual) 3 % (0-10) 08/27/17 14:28 Platelet Estimate Normal (NORMAL) 08/27/17 14:28 RBC Morphology Normal (NORMAL) 08/27/17 14:28 ESR 49 mm/hr (0-20) H 08/27/17 17:30 pO2 20 mm/Hg (30-55) L 08/27/17 14:18 VBG pH 7.41 (7.32-7.43) 08/27/17 14:18 VBG pCO2 41 mmHg (40-60) 08/27/17 14:18 VBG HCO3 24.1 mmol/L 08/27/17 14:18 VBG Total CO2 27.3 mmol/L (22-28) 08/27/17 14:18 VBG O2 Sat (Calc) 39.4 % (40-65) L 08/27/17 14:18 VBG Base Excess 1.2 mmol/L (0.0-2.0) 08/27/17 14:18 VBG Potassium 3.9 mmol/L (3.6-5.2) 08/27/17 14:18 A-a O2 Difference 78.0 mm/Hg 08/27/17 14:18 Sodium 135.0 mmol/L (132-148) 08/27/17 14:18 Chloride 102.0 mmol/L (98-107) 08/27/17 14:18 Glucose 128 mg/dL (65-105) H 08/27/17 14:18 Lactate 2.0 mmol/L (0.7-2.1) 08/27/17 14:18 FiO2 21.0 % 08/27/17 14:18 Crit Value Called To Paco carty 08/27/17 14:18 Crit Value Called By Raymon 08/27/17 14:18 Crit Value Read Back Y 08/27/17 14:18 Blood Gas Notified Time 1433 08/27/17 14:18 Sodium 136 mmol/l (132-148) 08/28/17 05:40 Potassium 4.6 MMOL/L (3.6-5.0) 08/28/17 05:40 Chloride 102 mmol/L (98-107) 08/28/17 05:40 Carbon Dioxide 27 mmol/L (22-30) 08/28/17 05:40 Anion Gap 12 (10-20) 08/28/17 05:40 BUN 14 mg/dl (7-17) 08/28/17 05:40 Creatinine 0.8 mg/dl (0.7-1.2) 08/28/17 05:40 Est GFR ( Amer) > 60 08/28/17 05:40 Est GFR (Non-Af Amer) > 60 08/28/17 05:40 POC Glucose (mg/dL) 134 mg/dL (65-110) H 08/31/17 16:32 Random Glucose 136 mg/dL (65-105) H 08/28/17 05:40 Hemoglobin A1c 7.4 % (4.2-6.5) H D 08/28/17 05:40 Calcium 8.8 mg/dL (8.4-10.2) 08/28/17 05:40 Magnesium 1.9 MG/DL (1.6-2.3) 08/28/17 05:40 Total Bilirubin 0.6 mg/dl (0.2-1.3) 08/27/17 14:28 AST 22 U/L (14-36) 08/27/17 14:28 ALT 29 U/L (9-52) 08/27/17 14:28 Alkaline Phosphatase 56 U/L (38-126) 08/27/17 14:28 C-Reactive Prot, Quant 68.9 mg/L (<8.0) H 08/27/17 17:30 Total Protein 7.7 G/DL (6.3-8.2) 08/27/17 14:28 Albumin 4.3 g/dL (3.5-5.0) 08/27/17 14:28 Globulin 3.4 gm/dL (2.2-3.9) 08/27/17 14:28 Albumin/Globulin Ratio 1.3 (1.0-2.1) 08/27/17 14:28 TSH 3rd Generation 1.01 mIU/ML (0.46-4.68) 08/28/17 05:40 Venous Blood Potassium 3.9 mmol/L (3.6-5.2) 08/27/17 14:18 Urine Color Yellow (YELLOW) 08/30/17 17:15 Urine Clarity Cloudy (Clear) 08/30/17 17:15 Urine pH 6.0 (5.0-8.0) 08/30/17 17:15 Ur Specific [facility] 1.026 (1.003-1.030) 08/30/17 17:15 Urine Protein 30 mg/dL (NEGATIVE) 08/30/17 17:15 Urine Glucose (UA) >=500 mg/dL (Normal) 08/30/17 17:15 Urine Ketones Negative mg/dL (NEGATIVE) 08/30/17 17:15 Urine Blood Large (NEGATIVE) 08/30/17 17:15 Urine Nitrate Negative (NEGATIVE) 08/30/17 17:15 Urine Bilirubin Negative (NEGATIVE) 08/30/17 17:15 Urine Urobilinogen 0.2-1.0 mg/dL (0.2-1.0) 08/30/17 17:15 Ur Leukocyte Esterase Trace Landy/uL (Negative) 08/30/17 17:15 Urine RBC (Auto) 300 /hpf (0-3) H 08/30/17 17:15 Urine Microscopic WBC 12 /hpf (0-5) H 08/30/17 17:15 Ur Squamous Epith Cells 7 /hpf (0-5) H 08/30/17 17:15 Urine Bacteria Rare (<OCC) 08/30/17 17:15 Urine Yeast (Budding) Few /hpf (NEGATIVE) H 08/30/17 17:15 Influenza Typ A,B (EIA) Negative for flu a/b (NEGATIVE) 08/27/17 16:57 Discharge Exam - Head Exam Head Exam: ATRAUMATIC, NORMAL INSPECTION, NORMOCEPHALIC Discharge Plan - Follow Up Plan Condition: FAIR Disposition: HOME/ ROUTINE Instructions: Cellulitis (DC), Cellulitis (GEN) Referrals: Tianna Drew MD [Staff Provider] -
[2017-09-02] MEDS ORDERED: Ergocalciferol 50,000 Intl Units Cap PO SCH (09:00)
== END 2017-08-31 19:01 | disposition home or self-care (01) | DRG 277 ==
LOC: H.ER 12:36 → H.ERHOLD 16:38 → H.MEDSURG1 18:23 → OBSVTOIN 08-28 10:25 → H.MEDSURG1 08-28 18:34
PROVIDERS: ADMIT Internal Medicine; ATTEND Internal Medicine
DX: L03.116 Cellulitis of left lower limb (principal); E11.621 Type 2 diabetes mellitus with foot ulcer; L97.529 Non-pressure chronic ulcer of other part of left foot with unspecified severity; M65.862 Other synovitis and tenosynovitis, left lower leg; B95.1 Streptococcus, group B, as the cause of diseases classified elsewhere; I10 Essential (primary) hypertension; E78.00 Pure hypercholesterolemia, unspecified

== ENCOUNTER 2017-11-24 13:35 | Inpatient (IN) | payer MEDICAID ==
[2017-11-24 13:35] VITALS: BMI 37.8
[2017-11-24] MEDS ORDERED: Sodium Chloride 0.9% 2,000 ML IV STA (14:09)
--- NOTE | 2017-11-24 14:14 | ED PDOC ---
HPI: SOB/CHF/COPD Time Seen by Provider: 11/24/17 14:11 Chief Complaint (Nursing): Shortness Of Breath Chief Complaint (Provider): sob/chest pain History Per: Patient (41 y/o female recent gastric sleeve 11/[address] Elizabeth Gilmore here for vomiting ongoing associated with chest pain x 2 days associated with shortness of breath. Denies any abdominal pain. Notes no BM since 11/16.) Past Medical History Reviewed: Historical Data, Nursing Documentation, Vital Signs Vital Signs: Last Vital Signs Temp 97.8 F 11/24/17 17:23 Pulse 112 H 11/24/17 16:56 Resp 22 11/24/17 16:56 BP 145/75 11/24/17 16:56 Pulse Ox 100 11/24/17 16:56 - Medical History PMH: Diabetes, HTN, Hypercholesterolemia Denies: HIV, Chronic Kidney Disease - Surgical History Surgical History: (x1) - Family History Family History: States: Unknown Family Hx - Immunization History Hx Tetanus Toxoid Vaccination: No Hx Influenza Vaccination: No Hx Pneumococcal Vaccination: No - Home Medications Home Medications: Ambulatory Orders Medication Instructions Recorded Atorvastatin [Lipitor] 20 mg PO HS 07/10/16 Empagliflozin [Jardiance] 25 mg PO DAILY 07/10/16 Valsartan [Diovan] 160 mg PO DAILY 07/10/16 Glipizide [Glipizide ER] 2.5 mg PO DAILY 08/27/17 Codeine Phosphate/Guaifenesin 5 ml PO Q6 PRN 11/24/17 [Guaifenesin-Codeine Syrup] levoFLOXacin [Levaquin] 500 mg PO DAILY 11/24/17 - Allergies Allergies/Adverse Reactions: Allergies Allergy/AdvReac Type Severity Reaction Status Date / Time ciprofloxacin [From Cipro] Allergy RASH Verified 07/10/16 11:38 ciprofloxacin HCl Allergy RASH Verified 07/10/16 11:38 [From Cipro] Review of Systems ROS Statement: Except As Marked, All Systems Reviewed And Found Negative Cardiovascular: Positive for: Chest Pain Respiratory: Positive for: Shortness of Breath Neurological: Positive for: Weakness Physical Exam - Reviewed Nursing Documentation Reviewed: Yes Vital Signs Reviewed: Yes - Physical Exam Appears: Positive for: Well, Non-toxic, No Acute Distress Head Exam: Positive for: ATRAUMATIC, NORMAL INSPECTION, NORMOCEPHALIC Skin: Positive for: Normal Color, Warm, DRY Eye Exam: Positive for: EOMI, Normal appearance, PERRL ENT: Positive for: Normal ENT Inspection Neck: Positive for: Normal, Painless ROM Cardiovascular/Chest: Positive for: Regular Rate, Rhythm Respiratory: Positive for: CNT, Normal Breath Sounds Gastrointestinal/Abdominal: Positive for: Normal Exam, Bowel Sounds, Soft, Other (surgical incisions noted. No signs of erythema/tenderness/ discharge. NONTENDER abdomen. Hypoactive Bowel sounds) Back: Positive for: Normal Inspection Extremity: Positive for: Normal ROM Neurologic/Psych: Positive for: Alert, Oriented - Laboratory Results Result Diagrams: 11/24/17 14:55 11/24/17 14:55 - ECG ECG Rhythm: Positive for: Sinus Tachycardia (127bpm; no ectopy no acute changes) - Radiology X-Ray: Viewed By Ca - Progress ED Course And Treament: INITIAL VBG NOTED WITH PH 7.18/ CO NOTED 11 RE-EVALUATED WITH DR. BARRON. REPEAT PULSE RATE 107. [place] CATHETER NOTES 200 CC URINE. CTA CHEST IMPRESSION: No definitive pulmonary embolus identified although there is some limited enhance of the peripheral pulmonary arteries limiting full evaluation. Pulmonary artery approaches upper limits normal caliber without prominent dilatation. Limited bilateral basilar dependent atelectasis. No definitive infiltrate pleural or pericardial effusion identified. AFTER 2ND LITER NS, BS 126 REPEAT BLOOD GAS NOTED PH 7.24 URINALYSIS WITH KETONES THIRD LITER NS ADMINISTERED. REPEAT CT ABD/PELVIS FINDINGS: LOWER THORAX: Unremarkable. LIVER: Moderate hepatic steatosis. . 2.2 cm peripheral mass right hepatic lobe. There is suggestion of faint contrast enhancement. This may represent benign lesions such as hemangioma or less likely focal fatty sparing. GALLBLADDER AND BILE DUCTS: Unremarkable. PANCREAS: Unremarkable. No gross lesion or ductal dilatation. SPLEEN: Unremarkable. ADRENALS: Unremarkable. No mass. KIDNEYS AND URETERS: Unremarkable. No hydronephrosis. No solid mass. VASCULATURE: Unremarkable. No aortic aneurysm. BOWEL: Unremarkable. No obstruction. No gross mural thickening. APPENDIX: Normal appendix. PERITONEUM: Unremarkable. No free fluid. No free air. LYMPH NODES: Unremarkable. No enlarged lymph nodes. BLADDER: Unremarkable. REPRODUCTIVE: Unremarkable. BONES: No acute fracture. OTHER FINDINGS: None. IMPRESSION: No significant or acute findings to account for/ related to the clinical presentation. Additional benign and/or incidental findings described above. D/W DR. DUQUE ABOVE FINDINGS. WE WILL REPEAT BMP. FINDINGS NOT CONSISTENT WITH DKA. WILL START ON D51/2 NS 150 ML PER HOUR D/W DR. CHUNG SYSTEMS COORDINATOR FOR BARIATRIC SURGEON DR. GREEN PHONE NUMBER [phone]. PATIENT WAS SEEN BY HIM YESTERDAY FOR COMPLAINT OF COUGH. AGREES WITH PLAN FOR ADMISSION, HYDRATION AND PROGRESSION TO DIET OF LIQUIDS/PROTEINS DR DUQUE HAS DISCUSSED CASE WITH DR. LIZAMA FOR ADMISSION AND FURTHER EVALUATION OF RESOLUTION OF KETOSIS. Disposition - Clinical Impression Clinical Impression: Starvation ketoacidosis - Patient ED Disposition Is Patient to be Admitted: Yes - Disposition Disposition Time: 17:56 Condition: FAIR Instructions: Ketoacidosis That Is Not Caused by Diabetes (DC) Forms: [id number] (Czech) - Pt Status Changed To: Hospital Disposition Of: Inpatient - Admit Certification Admit to Inpatient:: After my assessment, the patient will require hospitalization for at least two midnights. This is because of the severity of symptoms shown, intensity of services needed, and/or the medical risk in this patient being treated as an outpatient.
[2017-11-24 15:10] LABS: BASO # 0.1 K/uL (0.0-0.2); BASO % 0.6 % (0.0-2.0); HEMOGLOBIN 14.7 g/dL (12.0-16.0); LYMPH # 0.8 K/uL (1.0-4.3); LYMPH % 8.9 % (20.0-40.0); MEAN CELL VOLUME 89.5 fl (81.0-99.0); MEAN CORPUSCULAR HEMOGLOBIN 30.2 pg (27.0-31.0); MEAN CORPUSCULAR HGB CONC 33.7 g/dL (33.0-37.0); MEAN PLATELET VOLUME 7.1 fl (7.2-11.7); MONO # 0.6 K/uL (0.0-0.8); MONO % 6.6 % (0.0-10.0); NEUT # 7.8 K/uL (1.8-7.0); NEUT % 83.9 % (50.0-75.0); NRBC % 0.1 % (0.0-0.0); PLATELET COUNT 371 K/uL (130-400); RBC 4.88 Mil/uL (3.80-5.20); RED CELL DISTRIBUTION WIDTH 14.1 % (11.5-14.5); WHITE BLOOD COUNT 9.4 K/uL (4.8-10.8)
[2017-11-24 15:19] LABS: INR 1.2 (0.9-1.2); PARTIAL THROMBOPLASTIN TIME 30.3 Seconds (25.6-37.1); PROTHROMBIN TIME 13.1 Seconds (9.8-13.1)
[2017-11-24 15:46] LABS: LYMPHOCYTE 11 % (20-50); MONOCYTE 8 % (0-10); NEUTROPHIL 81 % (42-75); PLATELET ESTIMATE NORMAL (NORMAL); TOTAL CELLS COUNTED 100
[2017-11-24 15:52] LABS: VENOUS BLOOD GAS BASE EXCESS -14.6 mmol/L (0.0-2.0); VENOUS BLOOD GAS PCO2 34 mmHg (40-60); VENOUS BLOOD GAS PO2 17 mm/Hg (30-55); VENOUS BLOOD PH 7.18 (7.32-7.43)
[2017-11-24 15:52] LABS: ALBUMIN 4.3 g/dL (3.5-5.0); ALT/SGPT 24 U/L (9-52); AST/SGOT 13 U/L (14-36); BLOOD UREA NITROGEN 23 mg/dl (7-17); CALCIUM 9.6 mg/dL (8.4-10.2); GFR AFRICAN-AMERICAN > 60; GFR NON-AFRICAN AMERICAN > 60; LIPASE 299 U/L (23-300)
[2017-11-24] MEDS ORDERED: Iodixanol 320 MG/ML 100 ML BOTTLE IV ONE (15:58)
[2017-11-24] MEDS ORDERED: Sodium Chloride 0.9% 1,000 ML IV STA ×2 (16:05→17:30)
--- NOTE | 2017-11-24 17:05 | CT ---
PROCEDURE: CT Chest with contrast (Pulmonary Angiogram) HISTORY: r/o PE COMPARISON: None available. TECHNIQUE: Axial computed tomography images were obtained of the chest in the pulmonary arterial phase of enhancement. Coronal and sagittal reformatted images were created and reviewed. Intravenous contrast dose: Visipaque 320, 95 cc Radiation dose: Total exam DLP = 1413.87 mGy-cm. This CT exam was performed using one or more of the following dose reduction techniques: Automated exposure control, adjustment of the mA and/or kV according to patient size, and/or use of iterative reconstruction technique. FINDINGS: PULMONARY ARTERIES: No definitive pattern is demonstrated to suggest pulmonary embolus at this time. However, contrast enhancement of the peripheral pulmonary artery branches is somewhat limited with central, secondary tertiary branches adequately enhance. The main pulmonary artery measures 2.7 cm, approaching upper limits normal caliber. AORTA: No acute findings. No thoracic aortic aneurysm. LUNGS: Limited bibasilar dependent atelectasis identified bilaterally with nondependent lungs appearing clear. No definitive alveolar infiltrate in nondependent lungs and therefore, dependent pulmonary limited opacity is likely a function of only atelectasis. Clinically correlate further. PLEURAL SPACES: Unremarkable. No effusion or pneuomothorax. The thoracic inlet appears unremarkable. HEART: Unremarkable. No cardiomegaly. No significant pericardial effusion. LYMPH NODES: No lymphadenopathy. BONES, CHEST WALL: Unremarkable. No fracture or destructive lesion OTHER FINDINGS: Upper abdomen images are evaluated in separate abdomen pelvis CT also performed 11/24/2017. IMPRESSION: No definitive pulmonary embolus identified although there is some limited enhance of the peripheral pulmonary arteries limiting full evaluation. Pulmonary artery approaches upper limits normal caliber without prominent dilatation. Limited bilateral basilar dependent atelectasis. No definitive infiltrate pleural or pericardial effusion identified.
[2017-11-24 17:15] LABS: SQUAMOUS EPITHIAL 1 /hpf (0-5); URINE BACTERIA RARE (<OCC); URINE BILIRUBIN NEGATIVE (NEGATIVE); URINE BLOOD NEGATIVE (NEGATIVE); URINE CLARITY SLIGHTY-CLOUDY (Clear); URINE COLOR YELLOW (YELLOW); URINE GLUCOSE (UA) >=500 mg/dL (Normal); URINE LEUKOCYTE ESTERASE MOD Leu/uL (Negative); URINE PROTEIN 100 mg/dL (NEGATIVE); URINE UROBILINOGEN 0.2-1.0 mg/dL (0.2-1.0)
[2017-11-24 17:17] LABS: ABG ALLEN TEST YES; ARTERIAL BLOOD GAS HCO3 13.5 mmol/L (21-28); ARTERIAL BLOOD GAS O2 SAT 99.7 % (95-98); ARTERIAL BLOOD GAS PCO2 26 mm/Hg (35-45); ARTERIAL BLOOD GAS PH 7.24 (7.35-7.45); ARTERIAL BLOOD GAS PO2 99 mm/Hg (80-100); ARTERIAL BLOOD GAS TCO2 11.9 mmol/L (22-28)
--- NOTE | 2017-11-24 17:17 | RAD ---
PROCEDURE: CHEST RADIOGRAPH, 1 VIEW HISTORY: Shortness of breath COMPARISON: 08/27/2017. FINDINGS: LUNGS: The lungs are clear. PLEURA: No pneumothorax or pleural fluid seen. CARDIOVASCULAR: Normal. OSSEOUS STRUCTURES: No significant abnormalities. VISUALIZED UPPER ABDOMEN: Normal. OTHER FINDINGS: None. IMPRESSION: No active pulmonary disease.
[2017-11-24 17:30] LABS: B-TYPE NATRIURETIC PEPTIDE 19.9 pg/ml (0-450)
--- NOTE | 2017-11-24 17:36 | CT ---
PROCEDURE: CT Abdomen and Pelvis with contrast HISTORY: recent gastric sleeve/vomiting COMPARISON: None. TECHNIQUE: Contrast dose: 95 cc Visipaque 320 Radiation dose: Total exam DLP = 1063.52 mGy-cm. This CT exam was performed using one or more of the following dose reduction techniques: Automated exposure control, adjustment of the mA and/or kV according to patient size, and/or use of iterative reconstruction technique. FINDINGS: LOWER THORAX: Unremarkable. LIVER: Moderate hepatic steatosis. . 2.2 cm peripheral mass right hepatic lobe. There is suggestion of faint contrast enhancement. This may represent benign lesions such as hemangioma or less likely focal fatty sparing. GALLBLADDER AND BILE DUCTS: Unremarkable. PANCREAS: Unremarkable. No gross lesion or ductal dilatation. SPLEEN: Unremarkable. ADRENALS: Unremarkable. No mass. KIDNEYS AND URETERS: Unremarkable. No hydronephrosis. No solid mass. VASCULATURE: Unremarkable. No aortic aneurysm. BOWEL: Unremarkable. No obstruction. No gross mural thickening. APPENDIX: Normal appendix. PERITONEUM: Unremarkable. No free fluid. No free air. LYMPH NODES: Unremarkable. No enlarged lymph nodes. BLADDER: Unremarkable. REPRODUCTIVE: Unremarkable. BONES: No acute fracture. OTHER FINDINGS: None. IMPRESSION: No significant or acute findings to account for/ related to the clinical presentation. Additional benign and/or incidental findings described above.
[2017-11-24] MEDS: Dextrose 5%/0.45% NS 1,000 ML IV SCH (17:47)
[2017-11-24 18:33] LABS: BLOOD UREA NITROGEN 20 mg/dl (7-17); CALCIUM 8.3 mg/dL (8.4-10.2); GFR AFRICAN-AMERICAN > 60; GFR NON-AFRICAN AMERICAN > 60
[2017-11-25] MEDS ORDERED: guaiFENesin-Codeine 100-10mg/5ml Syrup (5 ml) UD PO PRN (00:16)
[2017-11-25] MEDS: Dextrose 5%/0.45% NS 1,000 ML IV SCH ×2 (00:43→08:49)
[2017-11-25] MEDS ORDERED: Pneumococcal 23-Valent Vaccine IM ONE (03:30)
[2017-11-25] MEDS ORDERED: Influenza Vaccine 18yr & older 0.5 ML/45 MCG SYR IM ONE (03:35)
[2017-11-25 05:53] LABS: BASO # 0.1 K/uL (0.0-0.2); BASO % 1.1 % (0.0-2.0); EOS % 0.3 % (0.0-4.0); HEMOGLOBIN 11.3 g/dL (12.0-16.0); LYMPH # 1.5 K/uL (1.0-4.3); LYMPH % 22.2 % (20.0-40.0); MEAN CORPUSCULAR HEMOGLOBIN 29.5 pg (27.0-31.0); MEAN CORPUSCULAR HGB CONC 33.2 g/dL (33.0-37.0); MEAN PLATELET VOLUME 7.3 fl (7.2-11.7); MONO # 0.5 K/uL (0.0-0.8); MONO % 6.9 % (0.0-10.0); NEUT # 4.6 K/uL (1.8-7.0); NEUT % 69.5 % (50.0-75.0); RBC 3.84 Mil/uL (3.80-5.20); RED CELL DISTRIBUTION WIDTH 13.9 % (11.5-14.5); WHITE BLOOD COUNT 6.6 K/uL (4.8-10.8)
[2017-11-25 06:18] LABS: LDL CHOLESTEROL 81 mg/dL (0-129)
[2017-11-25 06:31] LABS: ALB/GLOB RATIO 0.9 (1.0-2.1); ALT/SGPT 27 U/L (9-52); AST/SGOT 12 U/L (14-36); BLOOD UREA NITROGEN 12 mg/dl (7-17); CALCIUM 7.9 mg/dL (8.4-10.2); GFR AFRICAN-AMERICAN > 60; GFR NON-AFRICAN AMERICAN > 60; HDL CHOLESTEROL 23 MG/DL (30-70)
[2017-11-25] MEDS: Insulin Lispro (humaLOG) 100 Units/ml Inj SC SCH ×4 (08:49→21:24)
[2017-11-25] MEDS ORDERED: Potassium Chloride 20 mEq/15 ml LIQ UD PO ONE (09:18)
[2017-11-25] MEDS ORDERED: Sodium Chloride 0.9% 1,000 ML IV SCH (09:30)
[2017-11-25] MEDS: Enoxaparin 40 mg Syringe SC SCH (09:54)
[2017-11-25] MEDS: GlipiZIDE 2.5 mg SR Tab PO SCH (10:34)
--- NOTE | 2017-11-25 10:53 | CARD ---
APPROVED REPORT EKG Measurement Heart [id number] <Conclusion> Normal sinus rhythm Nonspecific T wave abnormality Abnormal ECG
[2017-11-25] MEDS ORDERED: Potassium Chloride 20 mEq 100 ML IVPB SCH (12:00)
[2017-11-25] MEDS: Sodium Chloride 0.9% 1,000 ML IV SCH ×2 (13:51→21:25)
--- NOTE | 2017-11-25 18:55 | CP.PCM.HP ---
Past Patient History - Infectious Disease Hx of Infectious Diseases: None - Past Medical History & Family History Past Medical History?: Yes - Past Social History Smoking Status: Never Smoked - CARDIAC Hx Hypercholesterolemia: Yes Hx Hypertension: Yes - PULMONARY Hx Respiratory Disorders: No - NEUROLOGICAL Hx Neurological Disorder: No - HEENT Hx HEENT Problems: No - RENAL Hx Chronic Kidney Disease: No - ENDOCRINE/METABOLIC Hx Endocrine Disorders: Yes Hx Diabetes Mellitus Type 2: Yes - HEMATOLOGICAL/ONCOLOGICAL Hx AIDS: No Hx Human Immunodeficiency Virus (HIV): No - INTEGUMENTARY Hx Dermatological Problems: No - MUSCULOSKELETAL/RHEUMATOLOGICAL Hx Falls: No - GASTROINTESTINAL Hx Gastrointestinal Disorders: Yes Other/Comment: GASTRIC SLEEVE - GENITOURINARY/GYNECOLOGICAL Hx Genitourinary Disorders: No - PSYCHIATRIC Hx Psychophysiologic Disorder: No Hx Substance Use: No - SURGICAL HISTORY Hx Surgeries: Yes Hx Section: Yes (x1) Hx Gastric Bypass Surgery: Yes - ANESTHESIA Hx Anesthesia: Yes Hx Anesthesia Reactions: No Hx Malignant Hyperthermia: No Has any member of the family had a problem w/ anesthesia?: No Meds Allergies/Adverse Reactions: Allergies Allergy/AdvReac Type Severity Reaction Status Date / Time ciprofloxacin [From Cipro] Allergy RASH Verified 07/10/16 11:38 ciprofloxacin HCl Allergy RASH Verified 07/10/16 11:38 [From Cipro] Results - Vital Signs Recent Vital Signs: Last Vital Signs Temp 98.3 F 11/25/17 16:04 Pulse 104 H 11/25/17 16:04 Resp 20 11/25/17 16:04 BP 116/72 11/25/17 16:04 Pulse Ox 96 11/25/17 16:04 - Labs Result Diagrams: 11/25/17 04:25 11/25/17 04:25 Labs: Laboratory Results - last 24 hr 11/24/17 11/24/17 11/25/17 18:18 22:50 04:15 WBC RBC Hgb Hct MCV MCH MCHC RDW Plt Count MPV Neut % (Auto) Lymph % (Auto) Cassia % (Auto) Eos % (Auto) Baso % (Auto) Neut # (Auto) Lymph # (Auto) Cassia # (Auto) Eos # (Auto) Baso # (Auto) Sodium Potassium Chloride Carbon Dioxide Anion Gap BUN Creatinine Est GFR ( Amer) Est GFR (Non-Af Amer) POC Glucose (mg/dL) 242 H 251 H Random Glucose Hemoglobin A1c Calcium Total Bilirubin AST ALT Alkaline Phosphatase Troponin I Total Protein Albumin Globulin Albumin/Globulin Ratio Triglycerides Cholesterol LDL Cholesterol Direct HDL Cholesterol Beta HCG, Quant < 2.39 11/25/17 11/25/17 11/25/17 04:25 04:25 04:25 WBC 6.6 RBC 3.84 Hgb 11.3 L D Hct 34.2 MCV 89.0 MCH 29.5 MCHC 33.2 RDW 13.9 Plt Count 293 MPV 7.3 Neut % (Auto) 69.5 Lymph % (Auto) 22.2 Cassia % (Auto) 6.9 Eos % (Auto) 0.3 Baso % (Auto) 1.1 Neut # (Auto) 4.6 Lymph # (Auto) 1.5 Cassia # (Auto) 0.5 Eos # (Auto) 0.0 Baso # (Auto) 0.1 Sodium 140 Potassium 3.3 L Chloride 111 H Carbon Dioxide 14 L Anion Gap 18 BUN 12 Creatinine 0.6 L Est GFR ( Amer) > 60 Est GFR (Non-Af Amer) > 60 POC Glucose (mg/dL) Random Glucose 277 H Hemoglobin A1c 7.9 H Calcium 7.9 L Total Bilirubin 0.5 AST 12 L ALT 27 Alkaline Phosphatase 49 Troponin I Total Protein 6.3 Albumin 3.0 L D Globulin 3.3 Albumin/Globulin Ratio 0.9 L Triglycerides 100 D Cholesterol 130 LDL Cholesterol Direct 81 HDL Cholesterol 23 L Beta HCG, Quant 11/25/17 11/25/17 11/25/17 10:41 11:09 16:02 WBC RBC Hgb Hct MCV MCH MCHC RDW Plt Count MPV Neut % (Auto) Lymph % (Auto) Cassia % (Auto) Eos % (Auto) Baso % (Auto) Neut # (Auto) Lymph # (Auto) Cassia # (Auto) Eos # (Auto) Baso # (Auto) Sodium Potassium Chloride Carbon Dioxide Anion Gap BUN Creatinine Est GFR ( Amer) Est GFR (Non-Af Amer) POC Glucose (mg/dL) 220 H 151 H Random Glucose Hemoglobin A1c Calcium Total Bilirubin AST ALT Alkaline Phosphatase Troponin I < 0.0120 Total Protein Albumin Globulin Albumin/Globulin Ratio Triglycerides Cholesterol LDL Cholesterol Direct HDL Cholesterol Beta HCG, Quant
[2017-11-26] MEDS: Sodium Chloride 0.9% 1,000 ML IV SCH (01:13)
[2017-11-26 04:59] VITALS: O2SAT 98
[2017-11-26 05:57] LABS: HEMOGLOBIN 11.4 g/dL (12.0-16.0); MEAN CELL VOLUME 88.4 fl (81.0-99.0); MEAN CORPUSCULAR HEMOGLOBIN 29.9 pg (27.0-31.0); MEAN CORPUSCULAR HGB CONC 33.8 g/dL (33.0-37.0); RBC 3.82 Mil/uL (3.80-5.20); RED CELL DISTRIBUTION WIDTH 13.6 % (11.5-14.5); WHITE BLOOD COUNT 4.9 K/uL (4.8-10.8)
[2017-11-26 06:25] LABS: ALB/GLOB RATIO 0.9 (1.0-2.1); ALBUMIN 2.9 g/dL (3.5-5.0); ALT/SGPT 23 U/L (9-52); AST/SGOT 14 U/L (14-36); BLOOD UREA NITROGEN 8 mg/dl (7-17); CALCIUM 8.3 mg/dL (8.4-10.2); GFR AFRICAN-AMERICAN > 60; GFR NON-AFRICAN AMERICAN > 60
[2017-11-26] MEDS: Insulin Lispro (humaLOG) 100 Units/ml Inj SC SCH ×2 (08:00→12:00)
[2017-11-26 08:13] VITALS: PULSE 98; RESP 20
[2017-11-26] MEDS: GlipiZIDE 2.5 mg SR Tab PO SCH (09:05)
[2017-11-26] MEDS: Enoxaparin 40 mg Syringe SC SCH (09:06)
[2017-11-26 12:26] VITALS: BP 140/84; TEMP 98.3
[2017-11-26] MEDS ORDERED: Potassium Chloride 20 mEq/15 ml LIQ UD PO ONE (12:32)
--- NOTE | 2017-11-27 12:50 | CON ---
DATE: 11/26/2017 REFERRING PHYSICIAN: Geo Salazar MD REASON FOR CONSULTATION: Abdominal pain, nausea, and vomiting. HISTORY OF PRESENT ILLNESS: This is a 41-year-old female with history of status post gastric sleeve recently in [place], basically have some chest pain and also shortness of breath. All symptoms resolved. The patient is actually doing well, tolerating diet, lying in bed comfortably, and in no apparent distress. PAST MEDICAL HISTORY: As above. PAST SURGICAL HISTORY: As above. MEDICATIONS: Have been reviewed. REVIEW OF SYSTEMS: All other systems have been reviewed and negative apart from the HPI. PHYSICAL EXAMINATION: VITAL SIGNS: Here in the hospital, grossly unremarkable. GENERAL: A pleasant middle age female, lying in bed comfortably, and in no apparent distress. HEENT: Head, normocephalic and atraumatic. Eyes; pupils are equally reactive to light bilaterally. No conjunctival pallor or icterus. NECK: Supple. Normal range of motion. No lymphadenopathy appreciated. LUNGS: Coarse breath sounds bilaterally. HEART: S1 and S2, regular rate and rhythm. No murmurs appreciated. ABDOMEN: Soft and nontender. Bowel sounds present. No rebound. No guarding. RECTAL: Deferred. EXTREMITIES: Pulses present bilaterally. SKIN: Warm, dry, and intact. NEUROLOGIC: A and O x3. LABORATORY DATA: All labs and other radiology have been reviewed. Radiology includes a CAT scan shows mild hepatic steatosis with 2.2 cm peripheral mass, likely benign. Labs include WBC of 4.9, hemoglobin 9.4, and hematocrit 33.8. LFTs are normal limits. ASSESSMENT AND PLAN: This is a 41-year-old female with nausea, vomiting, and abdominal pain, this is likely gastroenteritis. The patient is doing well, tolerating diet, and can be discharged home safely. We will need an endoscopy as an outpatient and follow up MRI with contrast. Thank you for the consult. Vincent Newman MD/ PhD cc: Geo Salazar MD
== END 2017-11-26 14:15 | disposition home or self-care (01) | DRG 813 ==
LOC: H.ER 13:35 → H.ERHOLD 18:18 → H.TEL 22:05
PROVIDERS: ADMIT Internal Medicine; ATTEND Internal Medicine
PROC: 3E0234Z Introduction of Serum, Toxoid and Vaccine into Muscle, Percutaneous Approach (ICD-10-PCS; principal; 2017-11-25)
DX: K52.9 Noninfective gastroenteritis and colitis, unspecified (principal); E87.2 Acidosis; E11.9 Type 2 diabetes mellitus without complications; I10 Essential (primary) hypertension; E78.00 Pure hypercholesterolemia, unspecified; Z98.84 Bariatric surgery status; Z23 Encounter for immunization; Z88.1 Allergy status to other antibiotic agents

== ENCOUNTER 2017-12-12 13:58 | Inpatient (IN) | payer MEDICAID ==
[2017-12-12] MEDS ORDERED: Sodium Chloride 0.9% 1,000 ML IV SCH (14:30)
[2017-12-12] MEDS ORDERED: Morphine 4 MG/ML VIAL IVP ONE (14:57)
[2017-12-12 14:58] LABS: BASO % 0.4 % (0.0-2.0); HEMOGLOBIN 13.5 g/dL (12.0-16.0); LYMPH # 0.6 K/uL (1.0-4.3); LYMPH % 5.3 % (20.0-40.0); MEAN CELL VOLUME 89.4 fl (81.0-99.0); MEAN CORPUSCULAR HEMOGLOBIN 30.1 pg (27.0-31.0); MEAN CORPUSCULAR HGB CONC 33.6 g/dL (33.0-37.0); MEAN PLATELET VOLUME 7.7 fl (7.2-11.7); MONO # 0.5 K/uL (0.0-0.8); MONO % 4.6 % (0.0-10.0); NEUT # 9.3 K/uL (1.8-7.0); NEUT % 89.7 % (50.0-75.0); NRBC % 0.1 % (0.0-0.0); PLATELET COUNT 226 K/uL (130-400); RED CELL DISTRIBUTION WIDTH 15.5 % (11.5-14.5); WHITE BLOOD COUNT 10.4 K/uL (4.8-10.8)
--- NOTE | 2017-12-12 15:00 | ED PDOC ---
HPI: Abdomen Time Seen by Provider: 12/12/17 14:23 Chief Complaint (Nursing): Abdominal Pain Chief Complaint (Provider): ABDOMINAL PAIN History Per: Patient (41 Y/O FEMALE HERE WITH RIGHT LOWER QUADRANT PAIN THAT AWOKE HER FROM SLEEP TODAY. FEELS PAIN RADIATES TO THIGH. NOTES VOMITING WITH PAIN. DENIES ANY FEVERS/CHILLS. HAS H/O GASTRIC SLEEVE REPAIR 11/2017. NO H/O APPENDECTOMY. NO H/O OVARIAN CYST. DENIES ANY DYSURIA/URINARY FREQEUNCY/ HEMATURIA/FEVERS/CHILLS.) Past Medical History Reviewed: Historical Data, Nursing Documentation, Vital Signs Vital Signs: Last Vital Signs Temp 98.2 F 12/12/17 14:07 Pulse 130 H 12/12/17 14:07 Resp 20 12/12/17 14:07 BP 165/75 H 12/12/17 14:07 Pulse Ox 100 12/12/17 17:43 - Medical History PMH: Diabetes, HTN, Hypercholesterolemia Denies: HIV, Chronic Kidney Disease - Surgical History Surgical History: (x1) Other surgeries: GASTRIC SLEEVE - Family History Family History: States: Unknown Family Hx - Immunization History Hx Tetanus Toxoid Vaccination: No Hx Influenza Vaccination: No Hx Pneumococcal Vaccination: No - Home Medications Home Medications: Ambulatory Orders Medication Instructions Recorded Atorvastatin [Lipitor] 20 mg PO HS 07/10/16 Empagliflozin [Jardiance] 25 mg PO DAILY 07/10/16 Valsartan [Diovan] 160 mg PO DAILY 07/10/16 Glipizide [Glipizide ER] 2.5 mg PO DAILY 08/27/17 Codeine Phosphate/Guaifenesin 5 ml PO Q6 PRN 11/24/17 [Guaifenesin-Codeine Syrup] levoFLOXacin [Levaquin] 500 mg PO DAILY 11/24/17 Metoclopramide HCl [Reglan] 10 mg PO Q8 PRN #15 tablet 11/26/17 Potassium Chloride [Potassium 20 meq PO DAILY #4 udc 11/26/17 Chloride Oral Soln] - Allergies Allergies/Adverse Reactions: Allergies Allergy/AdvReac Type Severity Reaction Status Date / Time ciprofloxacin [From Cipro] Allergy RASH Verified 07/10/16 11:38 ciprofloxacin HCl Allergy RASH Verified 07/10/16 11:38 [From Cipro] Review of Systems ROS Statement: Except As Marked, All Systems Reviewed And Found Negative Gastrointestinal: Positive for: Vomiting, Abdominal Pain Physical Exam - Reviewed Nursing Documentation Reviewed: Yes Vital Signs Reviewed: Yes - Physical Exam Appears: Positive for: Well, Non-toxic, No Acute Distress Head Exam: Positive for: ATRAUMATIC, NORMAL INSPECTION, NORMOCEPHALIC Skin: Positive for: Normal Color, Warm, DRY Eye Exam: Positive for: EOMI, Normal appearance, PERRL ENT: Positive for: Normal ENT Inspection Neck: Positive for: Normal, Painless ROM Cardiovascular/Chest: Positive for: Regular Rate, Rhythm Respiratory: Positive for: CNT, Normal Breath Sounds Gastrointestinal/Abdominal: Positive for: Normal Exam, Soft, Tenderness (RLQ) Back: Positive for: Normal Inspection Extremity: Positive for: Normal ROM Neurologic/Psych: Positive for: Alert, Oriented - Laboratory Results Result Diagrams: 12/12/17 14:48 12/12/17 14:48 Urine POC: Negative Urine dip results: Positive for: Glucose. Negative for: Leukocyte Esterase, Blood, Nitrate, Ketones, Bilirubin, Protein - ECG O2 Sat by Pulse Oximetry: 100 - Progress ED Course And Treament: NS 1 LITER WIDE OPEN ZOFRAN 4 MG ODT MORPHINE 4 MG IV X 1 DOSE TRANSVAG US: FIBROID UTERUS: UNABLE TO VISUALIZE ADNEXA ( PER TECH DUE TO PAIN ) MORPHINE 4 MG IV X 2ND DOSE CT ABD/PELVIS: ACUTE APPENDICITIS ZOSYN 3.375GM IV X 1 DOSE ORDERED repeat heart rate 102 repeat bp 145/82 D/W SURG RESIDENT AT 17:42PM SURG CONSULT FOR DR. ARREOLA seen by surg resident in ED. Patient prepped for OR at 8:00pm today Disposition - Clinical Impression Clinical Impression: Appendicitis - Patient ED Disposition Is Patient to be Admitted: Yes - Disposition Disposition Time: 17:14 Condition: FAIR
[2017-12-12 15:04] LABS: SQUAMOUS EPITHIAL 3 /hpf (0-5); URINE BACTERIA MANY (<OCC); URINE BILIRUBIN NEGATIVE (NEGATIVE); URINE BLOOD NEGATIVE (NEGATIVE); URINE CLARITY SLIGHTY-CLOUDY (Clear); URINE COLOR YELLOW (YELLOW); URINE GLUCOSE (UA) >=500 mg/dL (Normal); URINE HYALINE CAST 0-2 /hpf (0-2); URINE LEUKOCYTE ESTERASE NEG Leu/uL (Negative); URINE PROTEIN 100 mg/dL (NEGATIVE); URINE UROBILINOGEN 0.2-1.0 mg/dL (0.2-1.0)
[2017-12-12 15:14] LABS: ALB/GLOB RATIO 1.1 (1.0-2.1); ALBUMIN 3.8 g/dL (3.5-5.0); ALT/SGPT 31 U/L (9-52); AST/SGOT 19 U/L (14-36); BLOOD UREA NITROGEN 6 mg/dl (7-17); CALCIUM 9.4 mg/dL (8.4-10.2); GFR AFRICAN-AMERICAN > 60; GFR NON-AFRICAN AMERICAN > 60; LIPASE 256 U/L (23-300)
[2017-12-12] MEDS ORDERED: Sodium Chloride 0.9% 2,000 ML IV STA (15:36)
[2017-12-12] MEDS ORDERED: Iohexol 300 100 ML IJ ONE (15:44)
[2017-12-12 15:54] LABS: ANISOCYTOSIS SLIGHT; BANDS 2 % (0-2); LARGE PLATELETS PRESENT; LYMPHOCYTE 8 % (20-50); MONOCYTE 5 % (0-10); NEUTROPHIL 85 % (42-75); PLATELET ESTIMATE NORMAL (NORMAL); TOTAL CELLS COUNTED 100
--- NOTE | 2017-12-12 16:19 | US ---
HISTORY: Right ovarian pain. COMPARISON: Comparison made with prior study dated 08/28/2013. TECHNIQUE: Transvaginal sonographic evaluation of pelvis performed. FINDINGS: UTERUS: Uterus is anteverted measuring approximately approximately 8.4 x 4.4 x 5.9 cm. Normal in size and appearance. . There is at least 1 uterine fibroid measuring 9 mm x 6 mm x 7 mm seen in the fundal region. . ENDOMETRIUM: Measures approximately 1.1 cm in diameter. Unremarkable. CERVIX: No cervical abnormality identified. RIGHT OVARY: Not visualized LEFT OVARY: Not visualized FREE FLUID: No significant free fluid noted. OTHER FINDINGS: None. IMPRESSION: Small uterine fibroid. Neither the right nor left adnexa visualized on this study.
[2017-12-12 16:36] LABS: VENOUS BLOOD GAS BASE EXCESS -11.3 mmol/L (0.0-2.0); VENOUS BLOOD GAS PCO2 34 mmHg (40-60); VENOUS BLOOD GAS PO2 17 mm/Hg (30-55); VENOUS BLOOD PH 7.25 (7.32-7.43)
[2017-12-12] MEDS ORDERED: Morphine 4 MG/ML VIAL IVP STA (16:56)
[2017-12-12] MEDS ORDERED: Piperacillin/Tazobact 3.375 GM in Sodium Chloride 0.9% 100 ML IVPB STA (17:04)
--- NOTE | 2017-12-12 17:07 | CT ---
PROCEDURE: CT scan abdomen and pelvis dated 12/12/2017. HISTORY: Right lower quadrant abdominal pain. Rule out appendicitis. COMPARISON: Comparison made with prior CT scan abdomen pelvis 11/24/2017. TECHNIQUE: Contiguous axial images of the abdomen and pelvis performed of following intravenous injection of approximately 95 cc Omnipaque 300 contrast material. Additional 2 dimensional sagittal and coronal reformats generated. Radiation dose: Total exam DLP = This CT exam was performed using one or more of the following dose reduction techniques: Automated exposure control, adjustment of the mA and/or kV according to patient size, and/or use of iterative reconstruction technique. FINDINGS: LOWER THORAX: Lung bases clear. No infiltrate effusion or basilar pneumothorax. Heart size of within range of normal. No significant pericardial effusion. There is a small hiatal hernia with slight wall thickening of the distal esophagus that could be due to protrusion of gastric mucosa. Possibility of esophagitis not excluded. LIVER: Liver exhibits normal size measuring approximately 14 cm in CC dimension. . Re- demonstrated is a small approximately 3.0 x 1.9 cm elliptical shaped low-attenuation focus within the left lobe liver bordering the fissure that is of uncertain etiology. This could represent localized fatty infiltration however other lesions including an angioma not excluded. Followup on three-phase CT scan of the liver recommended to exclude the possibility of a more aggressive pathology. Portal and splenic veins are opacified. GALLBLADDER AND BILE DUCTS: Gallbladder is physiologically distended. No evidence of intraluminal gallbladder calculi. PANCREAS: Visualized portions of the pancreas appear slightly atrophic and fatty replaced. No pancreatic masses collections or calcifications. SPLEEN: Spleen exhibits normal size and attenuation pattern without mass collection or calcification. ADRENALS: There are no adrenal lesions. KIDNEYS AND URETERS: Kidneys demonstrate relatively symmetric nephrograms. No evidence of nephrolithiasis or hydronephrosis. Some mild infiltration and possibly some fluid in the perinephric fat bilaterally nonspecific. No evidence of renal masses or collections. BLADDER: No urinary bladder is physiologically distended. No evidence of intraluminal urinary bladder calculi. REPRODUCTIVE: The uterus unremarkable. . There is a 3.5 x 2.5 cm left ovarian adnexal cyst which has developed since the prior study 11/24/2017. . Followup ultrasound of the pelvis on could be performed if necessary. APPENDIX: The appendix is dilated measuring up to 12 mm in greatest transverse dimension with mild enhancing thick-walled appearance and surrounding infiltration consistent with early acute appendicitis. BOWEL: Evaluation of the bowel is limited due to the lack of oral contrast material. The stomach is diminutive with suture line along greater curvature consistent with gastric sleeve surgery. Visualized small bowel exhibits normal contour and caliber. No evidence of acute mechanical small bowel obstruction. Liquid stool seen within the cecum and ascending and proximal transverse colon with dry stool throughout the remaining colon. No definitive evidence of abnormal mural wall thickening. PERITONEUM: No gross free intraperitoneal air. No loculated fluid collections. LYMPH NODES: Unremarkable. No enlarged lymph nodes. VASCULATURE: No evidence of abdominal aortic or iliac artery aneurysms. BONES: No fracture or destructive lesion. OTHER FINDINGS: None. IMPRESSION: Findings consistent with acute appendicitis. The Interval given increase size left ovarian cyst Postoperative changes of gastric sleeve surgery. There is a elliptical shaped focus low attenuation left anterior aspect left liver bordering fissure. While this could represent localized fatty infiltration, the possibility of a other underlying lesion including hemangioma not excluded. Recommend followup three-phase CT scan liver. See above discussion additional details and findings. Findings discussed with Dr. Bui at approximately 5 p.m. with written down and read back verification.
[2017-12-12] MEDS ORDERED: Morphine 4 MG/ML VIAL ONE (17:34)
[2017-12-12] MEDS ORDERED: Piperacillin/Tazobact 3.375 gm Inj IVPB ONE (17:34)
[2017-12-12] MEDS ORDERED: Lactated Ringer's 1,000 ML IV SCH ×2 (18:30→21:45)
--- NOTE | 2017-12-12 18:35 | CP.PCM.CON ---
History of Present Illness - History of Present Illness History of Present Illness: Gen Surg Consult Note: Dr. Hunt 41F with past medical history of HTN, DM, obesity, s/p laparoscopic sleeve gastrectomy ~3 weeks ago, presents to [facility] ED with complaints of abdominal pain. Patient states pain began this morning. Describes abdominal pain began in the RLQ and has began to radiate down her leg and mid lower abdomen. Patient reports having 2-3 bouts of emesis and reports nausea and chills. At time of examination patient denied headache/dizziness, chest pain, shortness of breath, dysuria. PMH: as stated above PSurgHx: laparoscopic sleeve gastrectomy, csection Allergies: ciprofloxacin Soc Hx: Denies smoking, denies illicit drug use, denies EtOH use Fam Hx: non-contributory Review of Systems - Review of Systems Review of Systems: 12pt ROS reviewed, unremarkable, except as stated in HPI Past Patient History - Infectious Disease Hx of Infectious Diseases: None - Past Medical History & Family History Past Medical History?: Yes - Past Social History Smoking Status: Never Smoked - CARDIAC Hx Hypercholesterolemia: Yes Hx Hypertension: Yes - PULMONARY Hx Respiratory Disorders: No - NEUROLOGICAL Hx Neurological Disorder: No - HEENT Hx HEENT Problems: No - RENAL Hx Chronic Kidney Disease: No - ENDOCRINE/METABOLIC Hx Endocrine Disorders: Yes Hx Diabetes Mellitus Type 2: Yes - HEMATOLOGICAL/ONCOLOGICAL Hx Human Immunodeficiency Virus (HIV): No - INTEGUMENTARY Hx Dermatological Problems: No - MUSCULOSKELETAL/RHEUMATOLOGICAL Hx Falls: No - GASTROINTESTINAL Hx Gastrointestinal Disorders: No - GENITOURINARY/GYNECOLOGICAL Hx Genitourinary Disorders: No - PSYCHIATRIC Hx Psychophysiologic Disorder: No Hx Substance Use: No - SURGICAL HISTORY Hx Surgeries: Yes Hx Section: Yes (x1) Hx Gastric Bypass Surgery: Yes - ANESTHESIA Hx Anesthesia: Yes Hx Anesthesia Reactions: No Hx Malignant Hyperthermia: No Meds Allergies/Adverse Reactions: Allergies Allergy/AdvReac Type Severity Reaction Status Date / Time ciprofloxacin [From Cipro] Allergy RASH Verified 07/10/16 11:38 ciprofloxacin HCl Allergy RASH Verified 07/10/16 11:38 [From Cipro] - Medications Medications: Current Medications Lactated Ringer's (Lactated Ringer's) 1,000 mls @ 150 mls/hr IV .Q6H40M MATTHEW Piperacillin Sod/Tazobactam (Sod 3.375 gm/ Sodium Chloride) 100 mls @ 100 mls/ hr IVPB Q12 MATTHEW PRN Reason: Protocol Morphine Sulfate (Morphine) 4 mg IVP Q4 PRN PRN Reason: Pain, moderate (4-7) Ondansetron HCl (Zofran Inj) 4 mg IVP Q6 PRN PRN Reason: Nausea/Vomiting Physical Exam - Constitutional Appears: No Acute Distress - Head Exam Head Exam: NORMOCEPHALIC - Eye Exam Eye Exam: EOMI, Normal appearance - ENT Exam ENT Exam: Mucous Membranes Moist, Normal Exam - Neck Exam Neck exam: Positive for: Normal Inspection - Respiratory Exam Respiratory Exam: NORMAL BREATHING PATTERN - Cardiovascular Exam Cardiovascular Exam: Tachycardia, +S1, +S2 - GI/Abdominal Exam GI & Abdominal Exam: Guarding, Soft, Tenderness. absent: Rigid Additional comments: +McBurney's point +RLQ tenderness +Psoas sign - Neurological Exam Neurological exam: Alert, Oriented x3 - Skin Skin Exam: Dry, Intact, Warm Results - Vital Signs Recent Vital Signs: Last Vital Signs Temp 98.2 F 12/12/17 14:07 Pulse 130 H 12/12/17 14:07 Resp 20 12/12/17 14:07 BP 165/75 H 12/12/17 14:07 Pulse Ox 100 12/12/17 18:15 - Labs Result Diagrams: 12/12/17 14:48 12/12/17 14:48 Labs: Laboratory Results - last 24 hr 12/12/17 12/12/17 12/12/17 14:44 14:48 14:48 WBC 10.4 D RBC 4.50 Hgb 13.5 D Hct 40.3 MCV 89.4 MCH 30.1 MCHC 33.6 RDW 15.5 H Plt Count 226 MPV 7.7 Neut % (Auto) 89.7 H Lymph % (Auto) 5.3 L [place] % (Auto) 4.6 Eos % (Auto) 0.0 Baso % (Auto) 0.4 Neut # (Auto) 9.3 H Lymph # (Auto) 0.6 L [place] # (Auto) 0.5 Eos # (Auto) 0.0 Baso # (Auto) 0.0 Neutrophils % (Manual) 85 H Band Neutrophils % 2 Lymphocytes % (Manual) 8 L Monocytes % (Manual) 5 Platelet Estimate Normal Large Platelets Present Anisocytosis (manual) Slight pO2 VBG pH VBG pCO2 VBG HCO3 VBG Total CO2 VBG O2 Sat (Calc) VBG Base Excess VBG Potassium Glucose Lactate FiO2 Sodium 141 Potassium 4.4 Chloride 105 Carbon Dioxide 13 L Anion Gap 27 H BUN 6 L Creatinine 0.6 L Est GFR ( Amer) > 60 Est GFR (Non-Af Amer) > 60 Random Glucose 167 H Calcium 9.4 Total Bilirubin 0.8 AST 19 ALT 31 Alkaline Phosphatase 46 Total Protein 7.2 Albumin 3.8 Globulin 3.4 Albumin/Globulin Ratio 1.1 Lipase 256 Venous Blood Potassium Urine Color Yellow Urine Clarity Slighty-cloudy Urine pH 6.0 Ur Specific [place] 1.018 Urine Protein 100 Urine Glucose (UA) >=500 Urine Ketones 80 Urine Blood Negative Urine Nitrate Negative Urine Bilirubin Negative Urine Urobilinogen 0.2-1.0 Ur Leukocyte Esterase Neg Urine RBC (Auto) 2 Urine Microscopic WBC 5 Ur Squamous Epith Cells 3 Urine Bacteria Many H Hyaline Casts 0-2 12/12/17 16:27 WBC RBC Hgb Hct MCV MCH MCHC RDW Plt Count MPV Neut % (Auto) Lymph % (Auto) [place] % (Auto) Eos % (Auto) Baso % (Auto) Neut # (Auto) Lymph # (Auto) [place] # (Auto) Eos # (Auto) Baso # (Auto) Neutrophils % (Manual) Band Neutrophils % Lymphocytes % (Manual) Monocytes % (Manual) Platelet Estimate Large Platelets Anisocytosis (manual) pO2 17 L VBG pH 7.25 L VBG pCO2 34 L VBG HCO3 13.9 VBG Total CO2 15.9 L VBG O2 Sat (Calc) 25.4 L VBG Base Excess -11.3 L VBG Potassium 5.8 H Glucose 149 H Lactate 1.2 FiO2 21.0 Sodium 132.0 Potassium Chloride 103.0 Carbon Dioxide Anion Gap BUN Creatinine Est GFR ( Amer) Est GFR (Non-Af Amer) Random Glucose Calcium Total Bilirubin AST ALT Alkaline Phosphatase Total Protein Albumin Globulin Albumin/Globulin Ratio Lipase Venous Blood Potassium 5.8 H Urine Color Urine Clarity Urine pH Ur Specific [place] Urine Protein Urine Glucose (UA) Urine Ketones Urine Blood Urine Nitrate Urine Bilirubin Urine Urobilinogen Ur Leukocyte Esterase Urine RBC (Auto) Urine Microscopic WBC Ur Squamous Epith Cells Urine Bacteria Hyaline Casts - Imaging and Cardiology CT scan - abdomen Status: Image reviewed by me, Report reviewed by me Assessment & Plan - Assessment and Plan (Free Text) Assessment: 41F with acute appendicitis Plan: -NPO -IVF -Abx -Analgesic/Anti-emetic -Type and screen -Urine test -For OR tonight at 8PM for laparoscopic appendectomy, possible open -Consent in chart -D/w Dr. Gilbert Steele PGY2
[2017-12-12 19:38] LABS: INR 1.2 (0.9-1.2); PARTIAL THROMBOPLASTIN TIME 35.1 Seconds (25.6-37.1); PROTHROMBIN TIME 12.8 Seconds (9.8-13.1)
[2017-12-12] MEDS ORDERED: Succinylcholine 200 mg/10 ml Inj IV ONE (19:59)
[2017-12-12] MEDS ORDERED: Propofol 10 mg/ml Inj (20 ML) ONE (19:59)
[2017-12-12] MEDS ORDERED: Lidocaine 4% (Laryng-O-Jet) Kit MM ONE (19:59)
[2017-12-12] MEDS ORDERED: Rocuronium 10 mg/ml (5 ml) ONE (19:59)
[2017-12-12] MEDS ORDERED: Etomidate 20 mg/10ml Inj IV ONE (20:01)
[2017-12-12] MEDS ORDERED: Lactated Ringer's 1,000 ML IV ONE ×2 (20:28→21:00)
[2017-12-12] MEDS ORDERED: Midazolam 2 MG/2 ML VIAL ONE (20:32)
[2017-12-12] MEDS ORDERED: Dexamethasone 4 mg/1 ml ONE (20:46)
[2017-12-12] MEDS ORDERED: Neostigmine 1:1000 (1 mg/ml) Inj ONE (20:48)
--- NOTE | 2017-12-12 20:48 | CP.PCM.HP ---
History of Present Illness - History of Present Illness History of Present Illness: CC: Abdominal PAin History of Present Illness: A 41F with past medical history of HTN, DM, obesity, s/p laparoscopic sleeve gastrectomy ~3 weeks ago, presents to [facility] ED with complaints of RLQ abdominal pain 03/16 . Patient states pain began this morning. Describes abdominal pain began in the RLQ and has began to radiate down her leg and mid lower abdomen. Patient reports having 2-3 bouts of emesis and reports nausea and chills. At time of examination patient denied headache/dizziness, chest pain, shortness of breath, dysuria. Denies fever or chills. Present on Admission - Present on Admission Any Indicators Present on Admission: No Review of Systems - Review of Systems All systems: reviewed and no additional remarkable complaints except - Gastrointestinal Gastrointestinal: As Per HPI Past Patient History - Infectious Disease Hx of Infectious Diseases: None - Past Medical History & Family History Past Medical History?: Yes Past Family History: Reviewed and not pertinent - Past Social History Smoking Status: Never Smoked Alcohol: None Drugs: Denies - CARDIAC Hx Hypercholesterolemia: Yes Hx Hypertension: Yes - PULMONARY Hx Respiratory Disorders: No - NEUROLOGICAL Hx Neurological Disorder: No - HEENT Hx HEENT Problems: No - RENAL Hx Chronic Kidney Disease: No - ENDOCRINE/METABOLIC Hx Endocrine Disorders: Yes Hx Diabetes Mellitus Type 2: Yes - HEMATOLOGICAL/ONCOLOGICAL Hx Human Immunodeficiency Virus (HIV): No - INTEGUMENTARY Hx Dermatological Problems: No - MUSCULOSKELETAL/RHEUMATOLOGICAL Hx Falls: No - GASTROINTESTINAL Hx Gastrointestinal Disorders: No - GENITOURINARY/GYNECOLOGICAL Hx Genitourinary Disorders: No - PSYCHIATRIC Hx Psychophysiologic Disorder: No Hx Substance Use: No - SURGICAL HISTORY Hx Surgeries: Yes Hx Section: Yes (x1) Hx Gastric Bypass Surgery: Yes - ANESTHESIA Hx Anesthesia: Yes Hx Anesthesia Reactions: No Hx Malignant Hyperthermia: No Meds Allergies/Adverse Reactions: Allergies Allergy/AdvReac Type Severity Reaction Status Date / Time ciprofloxacin [From Cipro] Allergy RASH Verified 07/10/16 11:38 ciprofloxacin HCl Allergy RASH Verified 07/10/16 11:38 [From Cipro] Physical Exam - Constitutional Appears: Non-toxic, In Acute Distress - Head Exam Head Exam: ATRAUMATIC, NORMAL INSPECTION, NORMOCEPHALIC - Eye Exam Eye Exam: EOMI, Normal appearance, PERRL Pupil Exam: NORMAL ACCOMODATION, PERRL - ENT Exam ENT Exam: Mucous Membranes Moist, Normal Exam - Neck Exam Neck exam: Positive for: Full Rom, Normal Inspection - Respiratory Exam Respiratory Exam: Clear to Auscultation Bilateral, NORMAL BREATHING PATTERN - Cardiovascular Exam Cardiovascular Exam: REGULAR RHYTHM, +S1, +S2 - GI/Abdominal Exam GI & Abdominal Exam: Guarding, Normal Bowel Sounds, Rebound, Tenderness - Extremities Exam Extremities exam: Positive for: normal capillary refill, normal inspection - Back Exam Back exam: FULL ROM, NORMAL INSPECTION. absent: CVA tenderness (L), CVA tenderness (R) - Neurological Exam Neurological exam: Alert, CN II-XII Intact, Normal Gait, Oriented x3, Reflexes Normal - Psychiatric Exam Psychiatric exam: Normal Affect, Normal Mood - Skin Skin Exam: Dry, Intact, Normal Color, Warm Results - Vital Signs Recent Vital Signs: Last Vital Signs Temp 98.2 F 12/12/17 20:00 Pulse 88 12/12/17 20:00 Resp 16 12/12/17 20:00 BP 142/88 12/12/17 20:00 Pulse Ox 99 12/12/17 20:00 - Labs Result Diagrams: 12/12/17 14:48 12/12/17 14:48 Labs: Laboratory Results - last 24 hr 12/12/17 12/12/17 12/12/17 14:44 14:48 14:48 WBC 10.4 D RBC 4.50 Hgb 13.5 D Hct 40.3 MCV 89.4 MCH 30.1 MCHC 33.6 RDW 15.5 H Plt Count 226 MPV 7.7 Neut % (Auto) 89.7 H Lymph % (Auto) 5.3 L [place] % (Auto) 4.6 Eos % (Auto) 0.0 Baso % (Auto) 0.4 Neut # (Auto) 9.3 H Lymph # (Auto) 0.6 L [place] # (Auto) 0.5 Eos # (Auto) 0.0 Baso # (Auto) 0.0 Neutrophils % (Manual) 85 H Band Neutrophils % 2 Lymphocytes % (Manual) 8 L Monocytes % (Manual) 5 Platelet Estimate Normal Large Platelets Present Anisocytosis (manual) Slight PT INR APTT pO2 VBG pH VBG pCO2 VBG HCO3 VBG Total CO2 VBG O2 Sat (Calc) VBG Base Excess VBG Potassium Glucose Lactate FiO2 Sodium 141 Potassium 4.4 Chloride 105 Carbon Dioxide 13 L Anion Gap 27 H BUN 6 L Creatinine 0.6 L Est GFR ( Amer) > 60 Est GFR (Non-Af Amer) > 60 Random Glucose 167 H Calcium 9.4 Total Bilirubin 0.8 AST 19 ALT 31 Alkaline Phosphatase 46 Total Protein 7.2 Albumin 3.8 Globulin 3.4 Albumin/Globulin Ratio 1.1 Lipase 256 Venous Blood Potassium Urine Color Yellow Urine Clarity Slighty-cloudy Urine pH 6.0 Ur Specific [place] 1.018 Urine Protein 100 Urine Glucose (UA) >=500 Urine Ketones 80 Urine Blood Negative Urine Nitrate Negative Urine Bilirubin Negative Urine Urobilinogen 0.2-1.0 Ur Leukocyte Esterase Neg Urine RBC (Auto) 2 Urine Microscopic WBC 5 Ur Squamous Epith Cells 3 Urine Bacteria Many H Hyaline Casts 0-2 12/12/17 12/12/17 16:27 18:55 WBC RBC Hgb Hct MCV MCH MCHC RDW Plt Count MPV Neut % (Auto) Lymph % (Auto) [place] % (Auto) Eos % (Auto) Baso % (Auto) Neut # (Auto) Lymph # (Auto) [place] # (Auto) Eos # (Auto) Baso # (Auto) Neutrophils % (Manual) Band Neutrophils % Lymphocytes % (Manual) Monocytes % (Manual) Platelet Estimate Large Platelets Anisocytosis (manual) PT 12.8 INR 1.2 APTT 35.1 pO2 17 L VBG pH 7.25 L VBG pCO2 34 L VBG HCO3 13.9 VBG Total CO2 15.9 L VBG O2 Sat (Calc) 25.4 L VBG Base Excess -11.3 L VBG Potassium 5.8 H Glucose 149 H Lactate 1.2 FiO2 21.0 Sodium 132.0 Potassium Chloride 103.0 Carbon Dioxide Anion Gap BUN Creatinine Est GFR ( Amer) Est GFR (Non-Af Amer) Random Glucose Calcium Total Bilirubin AST ALT Alkaline Phosphatase Total Protein Albumin Globulin Albumin/Globulin Ratio Lipase Venous Blood Potassium 5.8 H Urine Color Urine Clarity Urine pH Ur Specific [place] Urine Protein Urine Glucose (UA) Urine Ketones Urine Blood Urine Nitrate Urine Bilirubin Urine Urobilinogen Ur Leukocyte Esterase Urine RBC (Auto) Urine Microscopic WBC Ur Squamous Epith Cells Urine Bacteria Hyaline Casts - Imaging and Cardiology CT scan - abdomen Additional comment: /Pelvis: CT scan abdomen and pelvis dated 12/12/2017. HISTORY: Right lower quadrant abdominal pain. Rule out appendicitis. COMPARISON: Comparison made with prior CT scan abdomen pelvis 11/24/2017. TECHNIQUE: Contiguous axial images of the abdomen and pelvis performed of following intravenous injection of approximately 95 cc Omnipaque 300 contrast material. Additional 2 dimensional sagittal and coronal reformats generated. Radiation dose: Total exam DLP = This CT exam was performed using one or more of the following dose reduction techniques: Automated exposure control, adjustment of the mA and/or kV according to patient size, and/or use of iterative reconstruction technique. FINDINGS: LOWER THORAX: Lung bases clear. No infiltrate effusion or basilar pneumothorax. Heart size of within range of normal. No significant pericardial effusion. There is a small hiatal hernia with slight wall thickening of the distal esophagus that could be due to protrusion of gastric mucosa. Possibility of esophagitis not excluded. LIVER: Liver exhibits normal size measuring approximately 14 cm in CC dimension. . Re- demonstrated is a small approximately 3.0 x 1.9 cm elliptical shaped low- attenuation focus within the left lobe liver bordering the fissure that is of uncertain etiology. This could represent localized fatty infiltration however other lesions including an angioma not excluded. Followup on three-phase CT scan of the liver recommended to exclude the possibility of a more aggressive pathology. Portal and splenic veins are opacified. GALLBLADDER AND BILE DUCTS: Gallbladder is physiologically distended. No evidence of intraluminal gallbladder calculi. PANCREAS: Visualized portions of the pancreas appear slightly atrophic and fatty replaced. No pancreatic masses collections or calcifications. SPLEEN: Spleen exhibits normal size and attenuation pattern without mass collection or calcification. ADRENALS: There are no adrenal lesions. KIDNEYS AND URETERS: Kidneys demonstrate relatively symmetric nephrograms. No evidence of nephrolithiasis or hydronephrosis. Some mild infiltration and possibly some fluid in the perinephric fat bilaterally nonspecific. No evidence of renal masses or collections. BLADDER: No urinary bladder is physiologically distended. No evidence of intraluminal urinary bladder calculi. REPRODUCTIVE: The uterus unremarkable. . There is a 3.5 x 2.5 cm left ovarian adnexal cyst which has developed since the prior study 11/24/2017. . Followup ultrasound of the pelvis on could be performed if necessary. APPENDIX: The appendix is dilated measuring up to 12 mm in greatest transverse dimension with mild enhancing thick-walled appearance and surrounding infiltration consistent with early acute appendicitis. BOWEL: Evaluation of the bowel is limited due to the lack of oral contrast material. The stomach is diminutive with suture line along greater curvature consistent with gastric sleeve surgery. Visualized small bowel exhibits normal contour and caliber. No evidence of acute mechanical small bowel obstruction. Liquid stool seen within the cecum and ascending and proximal transverse colon with dry stool throughout the remaining colon. No definitive evidence of abnormal mural wall thickening. PERITONEUM: No gross free intraperitoneal air. No loculated fluid collections. LYMPH NODES: Unremarkable. No enlarged lymph nodes. VASCULATURE: No evidence of abdominal aortic or iliac artery aneurysms. BONES: No fracture or destructive lesion. OTHER FINDINGS: None. IMPRESSION: Findings consistent with acute appendicitis. The Interval given increase size left ovarian cyst Postoperative changes of gastric sleeve surgery. There is a elliptical shaped focus low attenuation left anterior aspect left liver bordering fissure. While this could represent localized fatty infiltration, the possibility of a other underlying lesion including hemangioma not excluded. Recommend followup three-phase CT scan liver. See above discussion additional details and findings. Assessment & Plan (1) Acute appendicitis Assessment and Plan: NPO IVF IV Zosyn Pain Medication PRN Zofran PRN Surgery Onboard Tylenol Status: Acute Priority: High (2) Metabolic acidosis Assessment and Plan: IVF Status: Acute Priority: High (3) Diabetes mellitus Status: Chronic Priority: Low (4) Essential hypertension Status: Chronic Priority: Low
[2017-12-12] MEDS ORDERED: Desflurane Inhalation Anesthetic Liq (240 ml) ONE (21:06)
[2017-12-12 21:26] LABS: BLOOD UREA NITROGEN 4 mg/dl (7-17); CALCIUM 8.2 mg/dL (8.4-10.2); GFR AFRICAN-AMERICAN > 60; GFR NON-AFRICAN AMERICAN > 60
--- NOTE | 2017-12-12 21:38 | PCM.SURG1 ---
Surgeon's Initial Post Op Note - Surgeon's Notes Surgeon: Dr. Hunt Organ Builder: Dr. Ramsay PGY2 Type of Anesthesia: General Endo Pre-Operative Diagnosis: acute appendicitis Operative Findings: acute appendicitis Post-Operative Diagnosis: acute appendicitis Operation Performed: laparoscopic appendectomy Specimen/Specimens Removed: appendix Estimated Blood Loss: EBL {In ML}: 10 Blood Products Given: N/A Drains Used: No Drains Post-Op Condition: Good Date of Surgery/Procedure: 12/12/17 Time of Surgery/Procedure: 20:47
--- NOTE | 2017-12-12 21:43 | PCM.SURG1 ---
Surgeon's Initial Post Op Note - Surgeon's Notes Surgeon: Dr. Hunt Recovery Room Nurse: Dr. Ramsay PGY2 Pre-Operative Diagnosis: acute appendicitis Operative Findings: acute appendicitis Post-Operative Diagnosis: acute appendicitis Operation Performed: laparoscopic appendectomy Specimen/Specimens Removed: appendix Estimated Blood Loss: EBL {In ML}: 10 Blood Products Given: N/A Drains Used: No Drains Post-Op Condition: Good Date of Surgery/Procedure: 12/12/17 Time of Surgery/Procedure: 21:43
[2017-12-12] MEDS ORDERED: Morphine 4 MG/ML VIAL IVP PRN (21:45)
[2017-12-12 22:45] LABS: ABG ALLEN TEST YES; ARTERIAL BLOOD GAS HCO3 13.9 mmol/L (21-28); ARTERIAL BLOOD GAS O2 SAT 99.9 % (95-98); ARTERIAL BLOOD GAS PCO2 31 mm/Hg (35-45); ARTERIAL BLOOD GAS PH 7.21 (7.35-7.45); ARTERIAL BLOOD GAS PO2 191 mm/Hg (80-100); ARTERIAL BLOOD GAS TCO2 13.4 mmol/L (22-28)
[2017-12-13 00:20] VITALS: BMI 37.0
[2017-12-13] MEDS ORDERED: Sodium Bicarbonate 8.4% 150 MEQ in Dextrose 5% In Water 1,000 ML IV SCH (00:30)
--- NOTE | 2017-12-13 01:05 | CP.PCM.CON ---
History of Present Illness - History of Present Illness History of Present Illness: CC: acidosis, tachypnea HPI: This is a 41 y/o female with HTN, DM, and recent laproscopic sleeve gastrectomy for obesity. She was admitted to the hospital this visit for abnominal pain, and found to have appendicitis. She has just returned from the OR s/p appendectomy. The procedure went without complication, but patient's CO2 has been persistently low, and pH has been low as well. Patient appears to be breathing rapidly to compensate. Anesthesiology was concerned about the acidosis and her ongoing ability to compensate for her acidosis, and wanted to observe her in ICU with a bicarbonate drip. MHx/SHx: HTN, DM2; sleeve gastrectomy, appendectomy Allergies: cipro Family/Social Hx: No relevant findings Past Patient History - Infectious Disease Hx of Infectious Diseases: None - Past Medical History & Family History Past Medical History?: Yes - Past Social History Smoking Status: Never Smoked - CARDIAC Hx Hypercholesterolemia: Yes Hx Hypertension: Yes - PULMONARY Hx Respiratory Disorders: No - NEUROLOGICAL Hx Neurological Disorder: No - HEENT Hx HEENT Problems: No - RENAL Hx Chronic Kidney Disease: No - ENDOCRINE/METABOLIC Hx Endocrine Disorders: Yes Hx Diabetes Mellitus Type 2: Yes - HEMATOLOGICAL/ONCOLOGICAL Hx AIDS: No Hx Human Immunodeficiency Virus (HIV): No - INTEGUMENTARY Hx Dermatological Problems: No - MUSCULOSKELETAL/RHEUMATOLOGICAL Hx Falls: No - GASTROINTESTINAL Hx Gastrointestinal Disorders: No - GENITOURINARY/GYNECOLOGICAL Hx Genitourinary Disorders: No - PSYCHIATRIC Hx Psychophysiologic Disorder: No Hx Substance Use: No - SURGICAL HISTORY Hx Surgeries: Yes Hx Section: Yes (x1) Hx Gastric Bypass Surgery: Yes - ANESTHESIA Hx Anesthesia: Yes Hx Anesthesia Reactions: No Hx Malignant Hyperthermia: No Meds Allergies/Adverse Reactions: Allergies Allergy/AdvReac Type Severity Reaction Status Date / Time ciprofloxacin [From Cipro] Allergy RASH Verified 07/10/16 11:38 ciprofloxacin HCl Allergy RASH Verified 07/10/16 11:38 [From Cipro] - Medications Medications: Current Medications Lactated Ringer's (Lactated Ringer's) 1,000 mls @ 150 mls/hr IV .[id number] MATTHEW Piperacillin Sod/Tazobactam (Sod 3.375 gm/ Sodium Chloride) 100 mls @ 100 mls/ hr IVPB Q12 MATTHEW PRN Reason: Protocol Sodium Bicarbonate 150 meq/ (Dextrose) 1,150 mls @ 75 mls/hr IV .[id number] MATTHEW Stop: 12/13/17 15:49 Last Admin: 12/13/17 01:01 Dose: 75 mls/hr Morphine Sulfate (Morphine) 4 mg IVP Q4 PRN PRN Reason: Pain, moderate (4-7) Ondansetron HCl (Zofran Inj) 4 mg IVP Q6 PRN PRN Reason: Nausea/Vomiting Physical Exam - Constitutional Appears: No Acute Distress - Head Exam Head Exam: ATRAUMATIC, NORMOCEPHALIC - Eye Exam Eye Exam: EOMI, PERRL - ENT Exam ENT Exam: Mucous Membranes Moist - Respiratory Exam Respiratory Exam: Clear to Auscultation Bilateral Additional comments: tachypneic - Cardiovascular Exam Cardiovascular Exam: REGULAR RHYTHM, +S1, +S2 - GI/Abdominal Exam GI & Abdominal Exam: Soft - Neurological Exam Neurological exam: Alert, CN II-XII Intact, Oriented x3 - Skin Skin Exam: Dry, Warm Results - Vital Signs Recent Vital Signs: Last Vital Signs Temp 98.1 F 12/12/17 23:55 Pulse 101 H 12/13/17 00:17 Resp 21 12/13/17 00:17 BP 143/75 12/12/17 23:55 Pulse Ox 96 12/13/17 00:17 - Labs Result Diagrams: 12/12/17 14:48 12/12/17 20:00 Labs: Laboratory Results - last 24 hr 12/12/17 12/12/17 12/12/17 14:44 14:48 14:48 WBC 10.4 D RBC 4.50 Hgb 13.5 D Hct 40.3 MCV 89.4 MCH 30.1 MCHC 33.6 RDW 15.5 H Plt Count 226 MPV 7.7 Neut % (Auto) 89.7 H Lymph % (Auto) 5.3 L Gilliam % (Auto) 4.6 Eos % (Auto) 0.0 Baso % (Auto) 0.4 Neut # (Auto) 9.3 H Lymph # (Auto) 0.6 L Gilliam # (Auto) 0.5 Eos # (Auto) 0.0 Baso # (Auto) 0.0 Neutrophils % (Manual) 85 H Band Neutrophils % 2 Lymphocytes % (Manual) 8 L Monocytes % (Manual) 5 Platelet Estimate Normal Large Platelets Present Anisocytosis (manual) Slight PT INR APTT pCO2 pO2 HCO3 ABG pH ABG Total CO2 ABG O2 Saturation ABG Base Excess Raffaele Test ABG Potassium VBG pH VBG pCO2 VBG HCO3 VBG Total CO2 VBG O2 Sat (Calc) VBG Base Excess VBG Potassium A-a O2 Difference Glucose Lactate FiO2 Sodium 141 Potassium 4.4 Chloride 105 Carbon Dioxide 13 L Anion Gap 27 H BUN 6 L Creatinine 0.6 L Est GFR ( Amer) > 60 Est GFR (Non-Af Amer) > 60 POC Glucose (mg/dL) Random Glucose 167 H Calcium 9.4 Total Bilirubin 0.8 AST 19 ALT 31 Alkaline Phosphatase 46 Total Protein 7.2 Albumin 3.8 Globulin 3.4 Albumin/Globulin Ratio 1.1 Lipase 256 Arterial Blood Potassium Venous Blood Potassium Urine Color Yellow Urine Clarity Slighty-cloudy Urine pH 6.0 Ur Specific [place] 1.018 Urine Protein 100 Urine Glucose (UA) >=500 Urine Ketones 80 Urine Blood Negative Urine Nitrate Negative Urine Bilirubin Negative Urine Urobilinogen 0.2-1.0 Ur Leukocyte Esterase Neg Urine RBC (Auto) 2 Urine Microscopic WBC 5 Ur Squamous Epith Cells 3 Urine Bacteria Many H Hyaline Casts 0-2 Blood Type Antibody Screen BBK History Checked 12/12/17 12/12/17 12/12/17 16:27 18:55 19:15 WBC RBC Hgb Hct MCV MCH MCHC RDW Plt Count MPV Neut % (Auto) Lymph % (Auto) Gilliam % (Auto) Eos % (Auto) Baso % (Auto) Neut # (Auto) Lymph # (Auto) Gilliam # (Auto) Eos # (Auto) Baso # (Auto) Neutrophils % (Manual) Band Neutrophils % Lymphocytes % (Manual) Monocytes % (Manual) Platelet Estimate Large Platelets Anisocytosis (manual) PT 12.8 INR 1.2 APTT 35.1 pCO2 pO2 17 L HCO3 ABG pH ABG Total CO2 ABG O2 Saturation ABG Base Excess Raffaele Test ABG Potassium VBG pH 7.25 L VBG pCO2 34 L VBG HCO3 13.9 VBG Total CO2 15.9 L VBG O2 Sat (Calc) 25.4 L VBG Base Excess -11.3 L VBG Potassium 5.8 H A-a O2 Difference Glucose 149 H Lactate 1.2 FiO2 21.0 Sodium 132.0 Potassium Chloride 103.0 Carbon Dioxide Anion Gap BUN Creatinine Est GFR ( Amer) Est GFR (Non-Af Amer) POC Glucose (mg/dL) Random Glucose Calcium Total Bilirubin AST ALT Alkaline Phosphatase Total Protein Albumin Globulin Albumin/Globulin Ratio Lipase Arterial Blood Potassium Venous Blood Potassium 5.8 H Urine Color Urine Clarity Urine pH Ur Specific [place] Urine Protein Urine Glucose (UA) Urine Ketones Urine Blood Urine Nitrate Urine Bilirubin Urine Urobilinogen Ur Leukocyte Esterase Urine RBC (Auto) Urine Microscopic WBC Ur Squamous Epith Cells Urine Bacteria Hyaline Casts Blood Type A POSITIVE Antibody Screen Negative BBK History Checked Patient has bt 12/12/17 12/12/17 12/12/17 20:00 21:39 22:36 WBC RBC Hgb Hct MCV MCH MCHC RDW Plt Count MPV Neut % (Auto) Lymph % (Auto) Gilliam % (Auto) Eos % (Auto) Baso % (Auto) Neut # (Auto) Lymph # (Auto) Gilliam # (Auto) Eos # (Auto) Baso # (Auto) Neutrophils % (Manual) Band Neutrophils % Lymphocytes % (Manual) Monocytes % (Manual) Platelet Estimate Large Platelets Anisocytosis (manual) PT INR APTT pCO2 31 L pO2 191 H HCO3 13.9 L ABG pH 7.21 L ABG Total CO2 13.4 L ABG O2 Saturation 99.9 H ABG Base Excess -14.2 L Raffaele Test Yes ABG Potassium 3.9 VBG pH VBG pCO2 VBG HCO3 VBG Total CO2 VBG O2 Sat (Calc) VBG Base Excess VBG Potassium A-a O2 Difference 127.0 Glucose 219 H Lactate 1.0 FiO2 50.0 Sodium 140 135.0 Potassium 3.9 Chloride 108 H 107.0 Carbon Dioxide 11 L* Anion Gap 25 H BUN 4 L Creatinine 0.5 L Est GFR ( Amer) > 60 Est GFR (Non-Af Amer) > 60 POC Glucose (mg/dL) 169 H Random Glucose 141 H Calcium 8.2 L Total Bilirubin AST ALT Alkaline Phosphatase Total Protein Albumin Globulin Albumin/Globulin Ratio Lipase Arterial Blood Potassium 3.9 Venous Blood Potassium Urine Color Urine Clarity Urine pH Ur Specific [place] Urine Protein Urine Glucose (UA) Urine Ketones Urine Blood Urine Nitrate Urine Bilirubin Urine Urobilinogen Ur Leukocyte Esterase Urine RBC (Auto) Urine Microscopic WBC Ur Squamous Epith Cells Urine Bacteria Hyaline Casts Blood Type Antibody Screen BBK History Checked 12/12/17 23:00 WBC RBC Hgb Hct MCV MCH MCHC RDW Plt Count MPV Neut % (Auto) Lymph % (Auto) Gilliam % (Auto) Eos % (Auto) Baso % (Auto) Neut # (Auto) Lymph # (Auto) Gilliam # (Auto) Eos # (Auto) Baso # (Auto) Neutrophils % (Manual) Band Neutrophils % Lymphocytes % (Manual) Monocytes % (Manual) Platelet Estimate Large Platelets Anisocytosis (manual) PT INR APTT pCO2 pO2 HCO3 ABG pH ABG Total CO2 ABG O2 Saturation ABG Base Excess Raffaele Test ABG Potassium VBG pH VBG pCO2 VBG HCO3 VBG Total CO2 VBG O2 Sat (Calc) VBG Base Excess VBG Potassium A-a O2 Difference Glucose Lactate FiO2 Sodium Potassium Chloride Carbon Dioxide Anion Gap BUN Creatinine Est GFR ( Amer) Est GFR (Non-Af Amer) POC Glucose (mg/dL) 188 H Random Glucose Calcium Total Bilirubin AST ALT Alkaline Phosphatase Total Protein Albumin Globulin Albumin/Globulin Ratio Lipase Arterial Blood Potassium Venous Blood Potassium Urine Color Urine Clarity Urine pH Ur Specific [place] Urine Protein Urine Glucose (UA) Urine Ketones Urine Blood Urine Nitrate Urine Bilirubin Urine Urobilinogen Ur Leukocyte Esterase Urine RBC (Auto) Urine Microscopic WBC Ur Squamous Epith Cells Urine Bacteria Hyaline Casts Blood Type Antibody Screen BBK History Checked Assessment & Plan (1) Metabolic acidosis Assessment and Plan: 41 y/o female s/p appendectomy. Recent history of gastric sleeve placement. With persistent acidosis and tachypnea -- unclear etiology. No obvious infection /sepsis at this time. -Place on low dose bicarb gtt -Repeat CBC/BMP/ABG in AM; stop bicarb gtt if patient CO2 improving and patient' s breathing is baseline Status: Acute Priority: High
[2017-12-13] MEDS ORDERED: Promethazine 25 MG in Sodium Chloride 0.9% 50 ML IVPB PRN (01:15)
[2017-12-13 05:07] LABS: ABG ALLEN TEST YES; ARTERIAL BLOOD GAS HCO3 14.2 mmol/L (21-28); ARTERIAL BLOOD GAS HEMOGLOBIN 12.4 g/dL (11.7-17.4); ARTERIAL BLOOD GAS O2 CAPACITY 16.9 mL/dL (16-24); ARTERIAL BLOOD GAS O2 CONTENT 16.4 ML/dL (15-23); ARTERIAL BLOOD GAS O2 SAT 97.1 % (95-98); ARTERIAL BLOOD GAS PCO2 24 mm/Hg (35-45); ARTERIAL BLOOD GAS PH 7.28 (7.35-7.45); ARTERIAL BLOOD GAS PO2 71 mm/Hg (80-100)
[2017-12-13 06:04] LABS: HEMOGLOBIN 13.1 g/dL (12.0-16.0); MEAN CELL VOLUME 90.6 fl (81.0-99.0); MEAN CORPUSCULAR HGB CONC 33.2 g/dL (33.0-37.0); RBC 4.37 Mil/uL (3.80-5.20); RED CELL DISTRIBUTION WIDTH 15.3 % (11.5-14.5); WHITE BLOOD COUNT 10.4 K/uL (4.8-10.8)
[2017-12-13 06:25] LABS: BLOOD UREA NITROGEN 4 mg/dl (7-17); CALCIUM 8.9 mg/dL (8.4-10.2); GFR AFRICAN-AMERICAN > 60; GFR NON-AFRICAN AMERICAN > 60
--- NOTE | 2017-12-13 07:59 | CP.PCM.CON ---
History of Present Illness - History of Present Illness History of Present Illness: HPI: Patient was admitted last night, po-OP after an appendectomy due to high AG metabolic acidosis. This is a 41 y/o female with HTN, DM, and recent laproscopic sleeve gastrectomy for obesity. She was admitted to the hospital this visit for abnominal pain, and found to have appendicitis. She has just returned from the OR s/p appendectomy. The procedure went without complication, but patient's CO2 has been persistently low, and pH has been low as well. Patient appears to be breathing rapidly to compensate. Anesthesiology was concerned about the acidosis and her ongoing ability to compensate for her acidosis, and wanted to observe her in ICU with a bicarbonate drip. I reviewed pt's blod work, she has metabolic acidosis prior to surgery and there no significant change post OP. This morning, she is very comfortable, no tachypnea, no SOB, no pain. Blood work from this AM is pending. Review of Systems - Constitutional Constitutional: As Per HPI - EENT Eyes: As Per HPI Ears: As Per HPI Nose/Mouth/Throat: As Per HPI - Breasts Breasts: As Per HPI - Cardiovascular Cardiovascular: As Per HPI - Respiratory Respiratory: As Per HPI - Gastrointestinal Gastrointestinal: As Per HPI Past Patient History - Infectious Disease Hx of Infectious Diseases: None - Past Medical History & Family History Past Medical History?: Yes - Past Social History Smoking Status: Never Smoked - CARDIAC Hx Hypercholesterolemia: Yes Hx Hypertension: Yes - PULMONARY Hx Respiratory Disorders: No - NEUROLOGICAL Hx Neurological Disorder: No - HEENT Hx HEENT Problems: No - RENAL Hx Chronic Kidney Disease: No - ENDOCRINE/METABOLIC Hx Endocrine Disorders: Yes Hx Diabetes Mellitus Type 2: Yes - HEMATOLOGICAL/ONCOLOGICAL Hx AIDS: No Hx Human Immunodeficiency Virus (HIV): No - INTEGUMENTARY Hx Dermatological Problems: No - MUSCULOSKELETAL/RHEUMATOLOGICAL Hx Falls: No - GASTROINTESTINAL Hx Gastrointestinal Disorders: No - GENITOURINARY/GYNECOLOGICAL Hx Genitourinary Disorders: No - PSYCHIATRIC Hx Psychophysiologic Disorder: No Hx Substance Use: No - SURGICAL HISTORY Hx Surgeries: Yes Hx Section: Yes (x1) Hx Gastric Bypass Surgery: Yes - ANESTHESIA Hx Anesthesia: Yes Hx Anesthesia Reactions: No Hx Malignant Hyperthermia: No Meds Allergies/Adverse Reactions: Allergies Allergy/AdvReac Type Severity Reaction Status Date / Time ciprofloxacin [From Cipro] Allergy RASH Verified 07/10/16 11:38 ciprofloxacin HCl Allergy RASH Verified 07/10/16 11:38 [From Cipro] - Medications Medications: Current Medications Lactated Ringer's (Lactated Ringer's) 1,000 mls @ 150 mls/hr IV .[id number] MATTHEW Piperacillin Sod/Tazobactam (Sod 3.375 gm/ Sodium Chloride) 100 mls @ 100 mls/ hr IVPB Q12 MATTHEW PRN Reason: Protocol Last Admin: 12/13/17 00:00 Dose: 100 mls/hr Sodium Bicarbonate 150 meq/ (Dextrose) 1,150 mls @ 75 mls/hr IV .[id number] MATTHEW Stop: 12/13/17 15:49 Last Admin: 12/13/17 01:01 Dose: 75 mls/hr Promethazine HCl 25 mg/ Sodium (Chloride) 51 mls @ 102 mls/hr IVPB Q6H PRN PRN Reason: Nausea Morphine Sulfate (Morphine) 4 mg IVP Q4 PRN PRN Reason: Pain, moderate (4-7) Ondansetron HCl (Zofran Inj) 4 mg IVP Q6 PRN PRN Reason: Nausea/Vomiting Physical Exam - Head Exam Head Exam: ATRAUMATIC - Eye Exam Pupil Exam: PERRL - ENT Exam ENT Exam: Mucous Membranes Moist - Neck Exam Neck exam: Positive for: Full Rom - Respiratory Exam Respiratory Exam: NORMAL BREATHING PATTERN - GI/Abdominal Exam GI & Abdominal Exam: Soft - Rectal Exam Rectal Exam: Deferred Results - Vital Signs Recent Vital Signs: Last Vital Signs Temp 97.8 F 12/13/17 04:00 Pulse 85 12/13/17 06:00 Resp 16 12/13/17 06:00 BP 115/67 12/13/17 06:00 Pulse Ox 96 12/13/17 06:00 - Labs Result Diagrams: 12/13/17 05:10 12/13/17 05:10 Labs: Laboratory Results - last 24 hr 12/12/17 12/12/17 12/12/17 14:44 14:48 14:48 WBC 10.4 D RBC 4.50 Hgb 13.5 D Hct 40.3 MCV 89.4 MCH 30.1 MCHC 33.6 RDW 15.5 H Plt Count 226 MPV 7.7 Neut % (Auto) 89.7 H Lymph % (Auto) 5.3 L [place] % (Auto) 4.6 Eos % (Auto) 0.0 Baso % (Auto) 0.4 Neut # (Auto) 9.3 H Lymph # (Auto) 0.6 L [place] # (Auto) 0.5 Eos # (Auto) 0.0 Baso # (Auto) 0.0 Neutrophils % (Manual) 85 H Band Neutrophils % 2 Lymphocytes % (Manual) 8 L Monocytes % (Manual) 5 Platelet Estimate Normal Large Platelets Present Anisocytosis (manual) Slight PT INR APTT pCO2 pO2 HCO3 ABG pH ABG Total CO2 ABG O2 Saturation ABG O2 Content ABG Base Excess ABG Hemoglobin ABG Carboxyhemoglobin POC ABG HHb (Measured) ABG Methemoglobin ABG O2 Capacity Raffaele Test ABG Potassium VBG pH VBG pCO2 VBG HCO3 VBG Total CO2 VBG O2 Sat (Calc) VBG Base Excess VBG Potassium A-a O2 Difference Hgb O2 Saturation Glucose Lactate FiO2 Sodium 141 Potassium 4.4 Chloride 105 Carbon Dioxide 13 L Anion Gap 27 H BUN 6 L Creatinine 0.6 L Est GFR ( Amer) > 60 Est GFR (Non-Af Amer) > 60 POC Glucose (mg/dL) Random Glucose 167 H Calcium 9.4 Total Bilirubin 0.8 AST 19 ALT 31 Alkaline Phosphatase 46 Total Protein 7.2 Albumin 3.8 Globulin 3.4 Albumin/Globulin Ratio 1.1 Lipase 256 Arterial Blood Potassium Venous Blood Potassium Urine Color Yellow Urine Clarity Slighty-cloudy Urine pH 6.0 Ur Specific [place] 1.018 Urine Protein 100 Urine Glucose (UA) >=500 Urine Ketones 80 Urine Blood Negative Urine Nitrate Negative Urine Bilirubin Negative Urine Urobilinogen 0.2-1.0 Ur Leukocyte Esterase Neg Urine RBC (Auto) 2 Urine Microscopic WBC 5 Ur Squamous Epith Cells 3 Urine Bacteria Many H Hyaline Casts 0-2 Blood Type Antibody Screen BBK History Checked 12/12/17 12/12/17 12/12/17 16:27 18:55 19:15 WBC RBC Hgb Hct MCV MCH MCHC RDW Plt Count MPV Neut % (Auto) Lymph % (Auto) [place] % (Auto) Eos % (Auto) Baso % (Auto) Neut # (Auto) Lymph # (Auto) [place] # (Auto) Eos # (Auto) Baso # (Auto) Neutrophils % (Manual) Band Neutrophils % Lymphocytes % (Manual) Monocytes % (Manual) Platelet Estimate Large Platelets Anisocytosis (manual) PT 12.8 INR 1.2 APTT 35.1 pCO2 pO2 17 L HCO3 ABG pH ABG Total CO2 ABG O2 Saturation ABG O2 Content ABG Base Excess ABG Hemoglobin ABG Carboxyhemoglobin POC ABG HHb (Measured) ABG Methemoglobin ABG O2 Capacity Raffaele Test ABG Potassium VBG pH 7.25 L VBG pCO2 34 L VBG HCO3 13.9 VBG Total CO2 15.9 L VBG O2 Sat (Calc) 25.4 L VBG Base Excess -11.3 L VBG Potassium 5.8 H A-a O2 Difference Hgb O2 Saturation Glucose 149 H Lactate 1.2 FiO2 21.0 Sodium 132.0 Potassium Chloride 103.0 Carbon Dioxide Anion Gap BUN Creatinine Est GFR ( Amer) Est GFR (Non-Af Amer) POC Glucose (mg/dL) Random Glucose Calcium Total Bilirubin AST ALT Alkaline Phosphatase Total Protein Albumin Globulin Albumin/Globulin Ratio Lipase Arterial Blood Potassium Venous Blood Potassium 5.8 H Urine Color Urine Clarity Urine pH Ur Specific [place] Urine Protein Urine Glucose (UA) Urine Ketones Urine Blood Urine Nitrate Urine Bilirubin Urine Urobilinogen Ur Leukocyte Esterase Urine RBC (Auto) Urine Microscopic WBC Ur Squamous Epith Cells Urine Bacteria Hyaline Casts Blood Type A POSITIVE Antibody Screen Negative BBK History Checked Patient has bt 12/12/17 12/12/17 12/12/17 20:00 21:39 22:36 WBC RBC Hgb Hct MCV MCH MCHC RDW Plt Count MPV Neut % (Auto) Lymph % (Auto) [place] % (Auto) Eos % (Auto) Baso % (Auto) Neut # (Auto) Lymph # (Auto) [place] # (Auto) Eos # (Auto) Baso # (Auto) Neutrophils % (Manual) Band Neutrophils % Lymphocytes % (Manual) Monocytes % (Manual) Platelet Estimate Large Platelets Anisocytosis (manual) PT INR APTT pCO2 31 L pO2 191 H HCO3 13.9 L ABG pH 7.21 L ABG Total CO2 13.4 L ABG O2 Saturation 99.9 H ABG O2 Content ABG Base Excess -14.2 L ABG Hemoglobin ABG Carboxyhemoglobin POC ABG HHb (Measured) ABG Methemoglobin ABG O2 Capacity Raffaele Test Yes ABG Potassium 3.9 VBG pH VBG pCO2 VBG HCO3 VBG Total CO2 VBG O2 Sat (Calc) VBG Base Excess VBG Potassium A-a O2 Difference 127.0 Hgb O2 Saturation Glucose 219 H Lactate 1.0 FiO2 50.0 Sodium 140 135.0 Potassium 3.9 Chloride 108 H 107.0 Carbon Dioxide 11 L* Anion Gap 25 H BUN 4 L Creatinine 0.5 L Est GFR ( Amer) > 60 Est GFR (Non-Af Amer) > 60 POC Glucose (mg/dL) 169 H Random Glucose 141 H Calcium 8.2 L Total Bilirubin AST ALT Alkaline Phosphatase Total Protein Albumin Globulin Albumin/Globulin Ratio Lipase Arterial Blood Potassium 3.9 Venous Blood Potassium Urine Color Urine Clarity Urine pH Ur Specific [place] Urine Protein Urine Glucose (UA) Urine Ketones Urine Blood Urine Nitrate Urine Bilirubin Urine Urobilinogen Ur Leukocyte Esterase Urine RBC (Auto) Urine Microscopic WBC Ur Squamous Epith Cells Urine Bacteria Hyaline Casts Blood Type Antibody Screen BBK History Checked 12/12/17 12/13/17 12/13/17 23:00 04:57 05:10 WBC 10.4 RBC 4.37 Hgb 13.1 Hct 39.6 MCV 90.6 MCH 30.0 MCHC 33.2 RDW 15.3 H Plt Count 230 MPV Neut % (Auto) Lymph % (Auto) [place] % (Auto) Eos % (Auto) Baso % (Auto) Neut # (Auto) Lymph # (Auto) [place] # (Auto) Eos # (Auto) Baso # (Auto) Neutrophils % (Manual) Band Neutrophils % Lymphocytes % (Manual) Monocytes % (Manual) Platelet Estimate Large Platelets Anisocytosis (manual) PT INR APTT pCO2 24 L pO2 71 L HCO3 14.2 L ABG pH 7.28 L ABG Total CO2 12.0 L ABG O2 Saturation 97.1 ABG O2 Content 16.4 ABG Base Excess -13.7 L ABG Hemoglobin 12.4 ABG Carboxyhemoglobin 2.4 H POC ABG HHb (Measured) 2.8 ABG Methemoglobin 0.6 ABG O2 Capacity 16.9 Raffaele Test Yes ABG Potassium VBG pH VBG pCO2 VBG HCO3 VBG Total CO2 VBG O2 Sat (Calc) VBG Base Excess VBG Potassium A-a O2 Difference 49.0 Hgb O2 Saturation 94.1 L Glucose Lactate FiO2 21.0 Sodium Potassium Chloride Carbon Dioxide Anion Gap BUN Creatinine Est GFR ( Amer) Est GFR (Non-Af Amer) POC Glucose (mg/dL) 188 H Random Glucose Calcium Total Bilirubin AST ALT Alkaline Phosphatase Total Protein Albumin Globulin Albumin/Globulin Ratio Lipase Arterial Blood Potassium Venous Blood Potassium Urine Color Urine Clarity Urine pH Ur Specific [place] Urine Protein Urine Glucose (UA) Urine Ketones Urine Blood Urine Nitrate Urine Bilirubin Urine Urobilinogen Ur Leukocyte Esterase Urine RBC (Auto) Urine Microscopic WBC Ur Squamous Epith Cells Urine Bacteria Hyaline Casts Blood Type Antibody Screen BBK History Checked 12/13/17 05:10 WBC RBC Hgb Hct MCV MCH MCHC RDW Plt Count MPV Neut % (Auto) Lymph % (Auto) [place] % (Auto) Eos % (Auto) Baso % (Auto) Neut # (Auto) Lymph # (Auto) [place] # (Auto) Eos # (Auto) Baso # (Auto) Neutrophils % (Manual) Band Neutrophils % Lymphocytes % (Manual) Monocytes % (Manual) Platelet Estimate Large Platelets Anisocytosis (manual) PT INR APTT pCO2 pO2 HCO3 ABG pH ABG Total CO2 ABG O2 Saturation ABG O2 Content ABG Base Excess ABG Hemoglobin ABG Carboxyhemoglobin POC ABG HHb (Measured) ABG Methemoglobin ABG O2 Capacity Raffaele Test ABG Potassium VBG pH VBG pCO2 VBG HCO3 VBG Total CO2 VBG O2 Sat (Calc) VBG Base Excess VBG Potassium A-a O2 Difference Hgb O2 Saturation Glucose Lactate FiO2 Sodium 141 Potassium 4.3 Chloride 108 H Carbon Dioxide 12 L Anion Gap 25 H BUN 4 L Creatinine 0.7 Est GFR ( Amer) > 60 Est GFR (Non-Af Amer) > 60 POC Glucose (mg/dL) Random Glucose 223 H Calcium 8.9 Total Bilirubin AST ALT Alkaline Phosphatase Total Protein Albumin Globulin Albumin/Globulin Ratio Lipase Arterial Blood Potassium Venous Blood Potassium Urine Color Urine Clarity Urine pH Ur Specific [place] Urine Protein Urine Glucose (UA) Urine Ketones Urine Blood Urine Nitrate Urine Bilirubin Urine Urobilinogen Ur Leukocyte Esterase Urine RBC (Auto) Urine Microscopic WBC Ur Squamous Epith Cells Urine Bacteria Hyaline Casts Blood Type Antibody Screen BBK History Checked Assessment & Plan - Assessment and Plan (Free Text) Assessment: [id number] Acidosis: no renal failure, pt does not have DKA, not been on metformin and she has metabolic acidosis post bariatric surgery. If lactic acidosis was ruled out ( blood work still pending ) then C-lactic acidosis is a possibility. 2-Post OP : appendectomy 3-NIDDM 4-HTN Plan: Continue IVF, bicarb drip, change to 1/2NS with 75 meq bicarb at 100 cc/h On zosyn Continue other meds Transfer to med surg
--- NOTE | 2017-12-13 08:07 | CP.PCM.PN ---
Subjective - Date & Time of Evaluation Date of Evaluation: 12/13/17 Time of Evaluation: 07:00 - Subjective Subjective: Patient seen and examined. No acute events over night. Denies pain. Reported some nausea over night. Requesting food. Objective - Vital Signs/Intake and Output Vital Signs (last 24 hours): Temp Pulse Resp BP Pulse Ox 97.8 F 85 16 115/67 96 12/13/17 04:00 12/13/17 06:00 12/13/17 06:00 12/13/17 06:00 12/13/17 06:00 Intake and Output: 12/13/17 12/13/17 06:59 18:59 Intake Total 2300 Output Total 1300 Balance 1000 - Medications Medications: Current Medications Lactated Ringer's (Lactated Ringer's) 1,000 mls @ 150 mls/hr IV .[id number] MATTHEW Piperacillin Sod/Tazobactam (Sod 3.375 gm/ Sodium Chloride) 100 mls @ 100 mls/ hr IVPB Q12 MATTHEW PRN Reason: Protocol Last Admin: 12/13/17 00:00 Dose: 100 mls/hr Sodium Bicarbonate 150 meq/ (Dextrose) 1,150 mls @ 75 mls/hr IV .[id number] MATTHEW Stop: 12/13/17 15:49 Last Admin: 12/13/17 01:01 Dose: 75 mls/hr Promethazine HCl 25 mg/ Sodium (Chloride) 51 mls @ 102 mls/hr IVPB Q6H PRN PRN Reason: Nausea Morphine Sulfate (Morphine) 4 mg IVP Q4 PRN PRN Reason: Pain, moderate (4-7) Ondansetron HCl (Zofran Inj) 4 mg IVP Q6 PRN PRN Reason: Nausea/Vomiting - Labs Labs: 12/13/17 05:10 12/13/17 05:10 PT 12.8 Seconds (9.8-13.1) 12/12/17 18:55 INR 1.2 (0.9-1.2) 12/12/17 18:55 APTT 35.1 Seconds (25.6-37.1) 12/12/17 18:55 - Constitutional Appears: No Acute Distress - Head Exam Head Exam: NORMOCEPHALIC - Eye Exam Eye Exam: EOMI, Normal appearance - ENT Exam ENT Exam: Mucous Membranes Moist - Neck Exam Neck Exam: Normal Inspection - Respiratory Exam Respiratory Exam: NORMAL BREATHING PATTERN - Cardiovascular Exam Cardiovascular Exam: +S1, +S2 - GI/Abdominal Exam GI & Abdominal Exam: Soft, Tenderness. absent: Distended, Firm, Guarding, Rigid - Neurological Exam Neurological Exam: Alert, Awake, Oriented x3 - Psychiatric Exam Psychiatric exam: Normal Mood - Skin Skin Exam: Dry, Intact, Warm Assessment and Plan - Assessment and Plan (Free Text) Assessment: 41F with acute appendicitis s/p laparoscopic appendectomy POD0 Plan: -Diabetic diet -Abx x2 doses post-op -Analgesic/Anti-emetic -encourage IS use and ambulation -Patient remains in metabolic acidosis, however, pH improving from 7.2-->7.28 -Medical management per ICU -Further recs per Dr. Gilbert Steele PGY2
--- NOTE | 2017-12-13 08:11 | RAD ---
PROCEDURE: CHEST RADIOGRAPH, 1 VIEW HISTORY: Routine COMPARISON: 11/24/2017. FINDINGS: LUNGS: The lungs are clear. PLEURA: No pneumothorax or pleural fluid seen. CARDIOVASCULAR: Normal. OSSEOUS STRUCTURES: No significant abnormalities. VISUALIZED UPPER ABDOMEN: Normal. OTHER FINDINGS: None. IMPRESSION: No active pulmonary disease.
[2017-12-13] MEDS: Piperacillin/Tazobact 3.375 GM in Sodium Chloride 0.9% 100 ML IVPB SCH ×3 (08:43→21:13)
[2017-12-13] MEDS: Enoxaparin 40 mg Syringe SC SCH (09:43)
--- NOTE | 2017-12-13 11:19 | OP ---
PROCEDURE DATE: 12/12/2017 SURGEON Janae Hunt MD COMPENSATION INTERN: Dr. Ramsay. TYPE OF ANESTHESIA: General. ANESTHESIA ADMINISTERED BY: .Tee Olson MD ESTIMATED BLOOD LOSS: 20 mL. PREOPERATIVE DIAGNOSIS: Acute appendicitis. POSTOPERATIVE DIAGNOSIS: Acute appendicitis. PROCEDURE Laparoscopic appendectomy. DESCRIPTION OF OPERATION: With the patient in the supine position under adequate general anesthesia, the abdomen was prepped and draped in the usual sterile manner. Veress needle puncture was performed at the umbilicus with insufflation to 15 cm water pressure of CO2 and a 5 mm laparoscopic trocar was inserted via an infraumbilical incision. Under direct vision, 5 mm and 12 mm trocars were inserted in the left lower quadrant. The area of the appendix was visualized. The appendix was noted to be inflamed with a cobblestone appearance, although was not markedly enlarged. The appendix was grasped and freed from the sidewall of the iliac fossa. The needle appendix was then dissected and divided with an Endo-GASTON stapler. The appendix itself was then amputated close to the cecum using the Endo-GASTON stapler. The appendix was placed in a specimen retrieval bag and removed via the 12 mm port site. Right lower quadrant was irrigated and suctioned. The pneumoperitoneum was released and the trocars were removed. The 12 mm port site was closed with a fascial suture of 0 Vicryl. All incisions closed with 4-0 Monocryl subcuticular sutures and Steri-Strips. Dry sterile dressings were applied. The patient tolerated the procedure well and transferred to the recovery room in stable condition. Estimated blood loss for the procedure was 20 mL. Janae Hunt MD [facility] # [id number] [facility]
--- NOTE | 2017-12-13 17:22 | CP.PCM.PN ---
Subjective - Date & Time of Evaluation Date of Evaluation: 12/13/17 Time of Evaluation: 10:00 - Subjective Subjective: Seen and examined at the bed side. S/P Appendectomy day#1, and C/O Pin to the surgery site. No fever or chills. Denies any vomiting or diarrhea. Objective - Vital Signs/Intake and Output Vital Signs (last 24 hours): Temp Pulse Resp BP Pulse Ox 98.5 F 87 16 121/63 97 12/13/17 16:00 12/13/17 16:00 12/13/17 16:00 12/13/17 16:00 12/13/17 16:00 Intake and Output: 12/13/17 12/13/17 06:59 18:59 Intake Total 2300 340 Output Total 1300 Balance 1000 340 - Medications Medications: Current Medications Enoxaparin Sodium (Lovenox) 40 mg SC DAILY MATTHEW PRN Reason: Protocol Last Admin: 12/13/17 09:43 Dose: 40 mg Lactated Ringer's (Lactated Ringer's) 1,000 mls @ 150 mls/hr IV .[id number] [facility] Piperacillin Sod/Tazobactam (Sod 3.375 gm/ Sodium Chloride) 100 mls @ 100 mls/ hr IVPB Q12 MATTHEW PRN Reason: Protocol Last Admin: 12/13/17 08:43 Dose: 100 mls/hr Promethazine HCl 25 mg/ Sodium (Chloride) 51 mls @ 102 mls/hr IVPB Q6H PRN PRN Reason: Nausea Sodium Bicarbonate 100 meq/ (Sodium Chloride) 1,100 mls @ 75 mls/hr IV .[id number] [facility] Stop: 12/14/17 16:44 Morphine Sulfate (Morphine) 4 mg IVP Q4 PRN PRN Reason: Pain, moderate (4-7) Ondansetron HCl (Zofran Inj) 4 mg IVP Q6 PRN PRN Reason: Nausea/Vomiting - Labs Labs: 12/13/17 05:10 12/13/17 05:10 PT 12.8 Seconds (9.8-13.1) 12/12/17 18:55 INR 1.2 (0.9-1.2) 12/12/17 18:55 APTT 35.1 Seconds (25.6-37.1) 12/12/17 18:55 - Constitutional Appears: Non-toxic, No Acute Distress - Head Exam Head Exam: ATRAUMATIC, NORMAL INSPECTION, NORMOCEPHALIC - Eye Exam Eye Exam: EOMI, Normal appearance, PERRL Pupil Exam: NORMAL ACCOMODATION, PERRL - ENT Exam ENT Exam: Mucous Membranes Moist, Normal Exam - Neck Exam Neck Exam: Full ROM, Normal Inspection. absent: Lymphadenopathy - Respiratory Exam Respiratory Exam: Clear to Ausculation Bilateral, NORMAL BREATHING PATTERN - Cardiovascular Exam Cardiovascular Exam: REGULAR RHYTHM, +S1, +S2. absent: Murmur - GI/Abdominal Exam GI & Abdominal Exam: Guarding, Tenderness, Normal Bowel Sounds Additional comments: +Laporascopic sites - Extremities Exam Extremities Exam: Full ROM, Normal Capillary Refill, Normal Inspection. absent : Joint Swelling, Pedal Edema - Back Exam Back Exam: NORMAL INSPECTION - Neurological Exam Neurological Exam: Alert, Awake, CN II-XII Intact, Normal Gait, Oriented x3 - Psychiatric Exam Psychiatric exam: Normal Affect, Normal Mood - Skin Skin Exam: Dry, Intact, Normal Color, Warm Assessment and Plan (1) Acute appendicitis Assessment & Plan: S/P Appendectomy IVF Continue IV Zosyn Morphine PRN Zofran PRN Status: Acute (2) Metabolic acidosis Assessment & Plan: Ketoacidosis IV Bicarbonate D Lacte Level Mponitor BMP Status: Acute (3) Diabetes mellitus Status: Chronic (4) Essential hypertension Status: Chronic
[2017-12-14 05:19] LABS: MEAN CORPUSCULAR HGB CONC 34.1 g/dL (33.0-37.0); RBC 3.64 Mil/uL (3.80-5.20); RED CELL DISTRIBUTION WIDTH 15.5 % (11.5-14.5); WHITE BLOOD COUNT 5.3 K/uL (4.8-10.8)
[2017-12-14 05:40] LABS: ALB/GLOB RATIO 0.9 (1.0-2.1); ALBUMIN 2.7 g/dL (3.5-5.0); ALT/SGPT 32 U/L (9-52); AST/SGOT 22 U/L (14-36); BLOOD UREA NITROGEN 3 mg/dl (7-17); CALCIUM 8.4 mg/dL (8.4-10.2); GFR AFRICAN-AMERICAN > 60; GFR NON-AFRICAN AMERICAN > 60
[2017-12-14 06:49] LABS: HEMOGLOBIN 10.9 g/dL (12.0-16.0)
[2017-12-14 06:50] LABS: MEAN CELL VOLUME 87.9 fl (81.0-99.0)
--- NOTE | 2017-12-14 08:18 | CP.PCM.PN ---
Subjective - Date & Time of Evaluation Date of Evaluation: 12/14/17 Time of Evaluation: 07:20 - Subjective Subjective: Patient seen and examined this morning. Tolerating diet. No acute events over night. Surgical incision sites c/d/i. Complaining of cough. Objective - Vital Signs/Intake and Output Vital Signs (last 24 hours): Temp Pulse Resp BP Pulse Ox 98.7 F 84 18 134/89 95 12/14/17 04:00 12/14/17 05:00 12/14/17 05:00 12/14/17 05:00 12/14/17 05:00 Intake and Output: 12/14/17 12/14/17 06:59 18:59 Intake Total 925 Balance 925 - Medications Medications: Current Medications Enoxaparin Sodium (Lovenox) 40 mg SC DAILY COUNTS INCLUDE 234 BEDS AT THE [facility] PRN Reason: Protocol Last Admin: 12/13/17 09:43 Dose: 40 mg Piperacillin Sod/Tazobactam (Sod 3.375 gm/ Sodium Chloride) 100 mls @ 100 mls/ hr IVPB Q12 MATTHEW PRN Reason: Protocol Last Admin: 12/13/17 21:13 Dose: 100 mls/hr Promethazine HCl 25 mg/ Sodium (Chloride) 51 mls @ 102 mls/hr IVPB Q6H PRN PRN Reason: Nausea Sodium Bicarbonate 100 meq/ (Sodium Chloride) 1,100 mls @ 75 mls/hr IV .[id number] COUNTS INCLUDE 234 BEDS AT THE [facility] Stop: 12/14/17 16:44 Last Admin: 12/13/17 18:09 Dose: 75 mls/hr Morphine Sulfate (Morphine) 4 mg IVP Q4 PRN PRN Reason: Pain, moderate (4-7) Ondansetron HCl (Zofran Inj) 4 mg IVP Q6 PRN PRN Reason: Nausea/Vomiting - Labs Labs: 12/14/17 04:45 12/14/17 04:45 PT 12.8 Seconds (9.8-13.1) 12/12/17 18:55 INR 1.2 (0.9-1.2) 12/12/17 18:55 APTT 35.1 Seconds (25.6-37.1) 12/12/17 18:55 - Constitutional Appears: No Acute Distress - Head Exam Head Exam: NORMOCEPHALIC - Eye Exam Eye Exam: Normal appearance - ENT Exam ENT Exam: Mucous Membranes Moist - Respiratory Exam Respiratory Exam: NORMAL BREATHING PATTERN - Cardiovascular Exam Cardiovascular Exam: +S1, +S2 - GI/Abdominal Exam GI & Abdominal Exam: Soft - Neurological Exam Neurological Exam: Alert, Awake, Oriented x3 - Psychiatric Exam Psychiatric exam: Normal Mood - Skin Skin Exam: Dry, Intact, Warm Assessment and Plan - Assessment and Plan (Free Text) Assessment: 41F with acute appendicitis s/p laparoscopic appendectomy POD2 Plan: -Clear for d/c from surgical standpoint -Regular diet -Analgesic -Encourage IS use -encourage ambulation -Further recs per Dr. Gilbert Steele PGY2
[2017-12-14] MEDS ORDERED: Promethazine/Cod 6.25mg-10mg/5ml Syr UD PO PRN (08:23)
[2017-12-14 08:28] VITALS: BP 132/53
[2017-12-14] MEDS: Enoxaparin 40 mg Syringe SC SCH (08:36)
[2017-12-14 11:41] VITALS: PULSE 72; RESP 18; O2SAT 98
[2017-12-14 12:18] VITALS: TEMP 98.6
--- NOTE | 2017-12-17 00:05 | CP.PCM.DIS ---
Provider - Provider Date of Admission: 12/12/17 17:14 Attending physician: Tianna Drew MD Time Spent in preparation of Discharge (in minutes): 25 Diagnosis - Discharge Diagnosis (1) Acute appendicitis Status: Acute Priority: High (2) Metabolic acidosis Status: Acute Priority: High (3) Diabetes mellitus Status: Chronic Priority: Low (4) Essential hypertension Status: Chronic Priority: Low Hospital Course - Lab Results Lab Results: Micro Results 12/14/17 16:00 Naris MRSA Culture (Admit) - Final MRSA DETECTED 12/12/17 12:24 Nose MRSA Culture (Admit) - Final MRSA NOT DETECTED 12/12/17 14:44 Urine Urine Culture - Final <10,000 CFU/ML. MULTIPLE SPECIES. PROBABLE CONTAMINATION. Most Recent Lab Values WBC 5.3 K/uL (4.8-10.8) 12/14/17 04:45 RBC 3.64 Mil/uL (3.80-5.20) L 12/14/17 04:45 Hgb 10.9 g/dL (12.0-16.0) L D 12/14/17 04:45 Hct 32.0 % (34.0-47.0) L 12/14/17 04:45 MCV 87.9 fl (81.0-99.0) D 12/14/17 04:45 MCH 30.0 pg (27.0-31.0) 12/14/17 04:45 MCHC 34.1 g/dL (33.0-37.0) 12/14/17 04:45 RDW 15.5 % (11.5-14.5) H 12/14/17 04:45 Plt Count 203 K/uL (130-400) 12/14/17 04:45 MPV 7.7 fl (7.2-11.7) 12/12/17 14:48 Neut % (Auto) 89.7 % (50.0-75.0) H 12/12/17 14:48 Lymph % (Auto) 5.3 % (20.0-40.0) L 12/12/17 14:48 Green % (Auto) 4.6 % (0.0-10.0) 12/12/17 14:48 Eos % (Auto) 0.0 % (0.0-4.0) 12/12/17 14:48 Baso % (Auto) 0.4 % (0.0-2.0) 12/12/17 14:48 Neut # (Auto) 9.3 K/uL (1.8-7.0) H 12/12/17 14:48 Lymph # (Auto) 0.6 K/uL (1.0-4.3) L 12/12/17 14:48 Green # (Auto) 0.5 K/uL (0.0-0.8) 12/12/17 14:48 Eos # (Auto) 0.0 K/uL (0.0-0.7) 12/12/17 14:48 Baso # (Auto) 0.0 K/uL (0.0-0.2) 12/12/17 14:48 Neutrophils % (Manual) 85 % (42-75) H 12/12/17 14:48 Band Neutrophils % 2 % (0-2) 12/12/17 14:48 Lymphocytes % (Manual) 8 % (20-50) L 12/12/17 14:48 Monocytes % (Manual) 5 % (0-10) 12/12/17 14:48 Platelet Estimate Normal (NORMAL) 12/12/17 14:48 Large Platelets Present 12/12/17 14:48 Anisocytosis (manual) Slight 12/12/17 14:48 PT 12.8 Seconds (9.8-13.1) 12/12/17 18:55 INR 1.2 (0.9-1.2) 12/12/17 18:55 APTT 35.1 Seconds (25.6-37.1) 12/12/17 18:55 pCO2 24 mm/Hg (35-45) L 12/13/17 04:57 pO2 71 mm/Hg (80-100) L 12/13/17 04:57 HCO3 14.2 mmol/L (21-28) L 12/13/17 04:57 ABG pH 7.28 (7.35-7.45) L 12/13/17 04:57 ABG Total CO2 12.0 mmol/L (22-28) L 12/13/17 04:57 ABG O2 Saturation 97.1 % (95-98) 12/13/17 04:57 ABG O2 Content 16.4 ML/dL (15-23) 12/13/17 04:57 ABG Base Excess -13.7 mmol/L (-2.0-3.0) L 12/13/17 04:57 ABG Hemoglobin 12.4 g/dL (11.7-17.4) 12/13/17 04:57 ABG Carboxyhemoglobin 2.4 % (0.5-1.5) H 12/13/17 04:57 POC ABG HHb (Measured) 2.8 % (0.0-5.0) 12/13/17 04:57 ABG Methemoglobin 0.6 % (0.0-3.0) 12/13/17 04:57 ABG O2 Capacity 16.9 mL/dL (16-24) 12/13/17 04:57 Raffaele Test Yes 12/13/17 04:57 ABG Potassium 3.9 mmol/L (3.6-5.2) 12/12/17 22:36 VBG pH 7.25 (7.32-7.43) L 12/12/17 16:27 VBG pCO2 34 mmHg (40-60) L 12/12/17 16:27 VBG HCO3 13.9 mmol/L 12/12/17 16:27 VBG Total CO2 15.9 mmol/L (22-28) L 12/12/17 16:27 VBG O2 Sat (Calc) 25.4 % (40-65) L 12/12/17 16:27 VBG Base Excess -11.3 mmol/L (0.0-2.0) L 12/12/17 16:27 VBG Potassium 5.8 mmol/L (3.6-5.2) H 12/12/17 16:27 A-a O2 Difference 49.0 mm/Hg 12/13/17 04:57 Hgb O2 Saturation 94.1 % (95.0-98.0) L 12/13/17 04:57 Sodium 135.0 mmol/L (132-148) 12/12/17 22:36 Chloride 107.0 mmol/L (98-107) 12/12/17 22:36 Glucose 219 mg/dL (65-105) H 12/12/17 22:36 Lactate 1.0 mmol/L (0.7-2.1) 12/12/17 22:36 FiO2 21.0 % 12/13/17 04:57 Sodium 144 mmol/l (132-148) 12/14/17 04:45 Potassium 3.6 MMOL/L (3.6-5.0) 12/14/17 04:45 Chloride 106 mmol/L (98-107) 12/14/17 04:45 Carbon Dioxide 22 mmol/L (22-30) 12/14/17 04:45 Anion Gap 20 (10-20) 12/14/17 04:45 BUN 3 mg/dl (7-17) L 12/14/17 04:45 Creatinine 0.6 mg/dl (0.7-1.2) L 12/14/17 04:45 Est GFR ( Amer) > 60 12/14/17 04:45 Est GFR (Non-Af Amer) > 60 12/14/17 04:45 POC Glucose (mg/dL) 97 mg/dL (65-110) 12/14/17 06:34 Random Glucose 120 mg/dL (65-105) H 12/14/17 04:45 Lactic Acid 0.7 MMOL/L (0.7-2.1) 12/14/17 04:40 Calcium 8.4 mg/dL (8.4-10.2) 12/14/17 04:45 Total Bilirubin 0.5 mg/dl (0.2-1.3) 12/14/17 04:45 AST 22 U/L (14-36) 12/14/17 04:45 ALT 32 U/L (9-52) 12/14/17 04:45 Alkaline Phosphatase 36 U/L (38-126) L D 12/14/17 04:45 Total Protein 5.7 G/DL (6.3-8.2) L 12/14/17 04:45 Albumin 2.7 g/dL (3.5-5.0) L D 12/14/17 04:45 Globulin 3.0 gm/dL (2.2-3.9) 12/14/17 04:45 Albumin/Globulin Ratio 0.9 (1.0-2.1) L 12/14/17 04:45 Lipase 256 U/L (23-300) 12/12/17 14:48 Arterial Blood Potassium 3.9 mmol/L (3.6-5.2) 12/12/17 22:36 Venous Blood Potassium 5.8 mmol/L (3.6-5.2) H 12/12/17 16:27 Urine Color Yellow (YELLOW) 12/12/17 14:44 Urine Clarity Slighty-cloudy (Clear) 12/12/17 14:44 Urine pH 6.0 (5.0-8.0) 12/12/17 14:44 Ur Specific [place] 1.018 (1.003-1.030) 12/12/17 14:44 Urine Protein 100 mg/dL (NEGATIVE) 12/12/17 14:44 Urine Glucose (UA) >=500 mg/dL (Normal) 12/12/17 14:44 Urine Ketones 80 mg/dL (NEGATIVE) 12/12/17 14:44 Urine Blood Negative (NEGATIVE) 12/12/17 14:44 Urine Nitrate Negative (NEGATIVE) 12/12/17 14:44 Urine Bilirubin Negative (NEGATIVE) 12/12/17 14:44 Urine Urobilinogen 0.2-1.0 mg/dL (0.2-1.0) 12/12/17 14:44 Ur Leukocyte Esterase Neg Landy/uL (Negative) 12/12/17 14:44 Urine RBC (Auto) 2 /hpf (0-3) 12/12/17 14:44 Urine Microscopic WBC 5 /hpf (0-5) 12/12/17 14:44 Ur Squamous Epith Cells 3 /hpf (0-5) 12/12/17 14:44 Urine Bacteria Many (<OCC) H 12/12/17 14:44 Hyaline Casts 0-2 /hpf (0-2) 12/12/17 14:44 Blood Type A POSITIVE 12/12/17 19:15 Antibody Screen Negative 12/12/17 19:15 BBK History Checked Patient has bt 12/12/17 19:15 Discharge Exam - Head Exam Head Exam: NORMOCEPHALIC Discharge Plan - Follow Up Plan Condition: FAIR Disposition: HOME/ ROUTINE
== END 2017-12-14 13:13 | disposition home or self-care (01) | DRG 883 ==
LOC: H.ER 13:58 → H.ERHOLD 17:14 → H.ICU/CCU 23:47
PROVIDERS: ADMIT Internal Medicine; ATTEND Internal Medicine
PROC: 0DTJ4ZZ Resection of Appendix, Percutaneous Endoscopic Approach (ICD-10-PCS; principal; 2017-12-12 20:00)
DX: K35.80 Unspecified acute appendicitis (principal); E87.2 Acidosis; E11.9 Type 2 diabetes mellitus without complications; E78.00 Pure hypercholesterolemia, unspecified; I10 Essential (primary) hypertension; N83.202 Unspecified ovarian cyst, left side; Z79.84 Long term (current) use of oral hypoglycemic drugs; Z98.84 Bariatric surgery status; E66.9 Obesity, unspecified; Z68.37 Body mass index [BMI] 37.0-37.9, adult; Z79.899 Other long term (current) drug therapy; R05 Cough; R06.82 Tachypnea, not elsewhere classified

== ENCOUNTER 2017-12-15 14:41 | Emergency (ER) | payer MEDICAID ==
[2017-12-15 14:41] VITALS: BMI 37.0
[2017-12-15 14:55] VITALS: BP 144/76; PULSE 100; RESP 16; TEMP 97.8; O2SAT 99
--- NOTE | 2017-12-15 15:40 | ED PDOC ---
HPI: Wound Care - HPI Time Seen by Provider: 12/15/17 15:18 Chief Complaint (Nursing): Wound Check Chief Complaint (Provider): Wound Check History Per: Patient, Destaticizer Feeder (Destaticizer Feeder #: [id number]) Exam Limitations: no limitations Onset/Duration Of Symptoms: Days Current Symptoms Are (Timing): Still Present Additional Complaint(s): Shawna Saini is a 41 year old female with a past medical history of hypertension, diabetes, and hypercholesterolemia, who is presenting to the ER for evaluation of surgical incision where tapes were falling off, s/p appendectomy 3 days ago. Patient states that she was discharged from the hospital yesterday, when she saw the strips coming off. Her PMD recommended she go the ED which prompted her visit. Patient offers no other medical complaints at this time. PMD: Destiney Chen Past Medical History Reviewed: Historical Data, Nursing Documentation, Vital Signs Vital Signs: Last Vital Signs Temp 97.8 F 12/15/17 14:46 Pulse 100 H 12/15/17 14:46 Resp 16 12/15/17 14:46 BP 144/76 12/15/17 14:46 Pulse Ox 99 12/15/17 14:46 - Medical History PMH: Diabetes, HTN, Hypercholesterolemia Denies: HIV, Chronic Kidney Disease - Surgical History Surgical History: (x1) - Family History Family History: States: Unknown Family Hx - Immunization History Hx Tetanus Toxoid Vaccination: No Hx Influenza Vaccination: No Hx Pneumococcal Vaccination: No - Home Medications Home Medications: Ambulatory Orders Medication Instructions Recorded Atorvastatin [Lipitor] 20 mg PO HS 07/10/16 Empagliflozin [Jardiance] 25 mg PO DAILY 07/10/16 Valsartan [Diovan] 160 mg PO DAILY 07/10/16 Glipizide [Glipizide ER] 2.5 mg PO DAILY 08/27/17 - Allergies Allergies/Adverse Reactions: Allergies Allergy/AdvReac Type Severity Reaction Status Date / Time ciprofloxacin [From Cipro] Allergy RASH Verified 07/10/16 11:38 ciprofloxacin HCl Allergy RASH Verified 07/10/16 11:38 [From Cipro] Review of Systems ROS Statement: Except As Marked, All Systems Reviewed And Found Negative Constitutional: Positive for: Other (Strips falling off) Physical Exam - Reviewed Nursing Documentation Reviewed: Yes Vital Signs Reviewed: Yes - Physical Exam Appears: Positive for: Non-toxic, No Acute Distress Head Exam: Positive for: ATRAUMATIC, NORMAL INSPECTION, NORMOCEPHALIC Skin: Positive for: Normal Color Gastrointestinal/Abdominal: Positive for: Normal Exam, Other (umbellical incision missing piece of steri strip, incision: (-) active bleeding, (-) drainage, (-) signs of infection) Extremity: Positive for: Normal ROM. Negative for: Deformity, Swelling Neurologic/Psych: Positive for: Alert, Oriented. Negative for: Motor/Sensory Deficits - ECG O2 Sat by Pulse Oximetry: 99 (RA) Pulse Ox Interpretation: Normal Medical Decision Making Medical Decision Making: Scribe Attestation: Documented by Vanesa Matamoros, acting as a scribe for Migel Mitchell PA-C Provider Scribe Attestation: All medical record entries made by the Scribe were at my direction and personally dictated by me. I have reviewed the chart and agree that the record accurately reflects my personal performance of the history, physical exam, medical decision making, and the department course for this patient. I have also personally directed, reviewed, and agree with the discharge instructions and disposition. Disposition - Clinical Impression Clinical Impression: Wound disruption, post-op, skin - Patient ED Disposition Is Patient to be Admitted: No - Disposition Referrals: [facility] [Outside] Disposition Time: 15:55 Condition: GOOD Instructions: Wound Dehiscence (DC) Forms: [employer] (Mongolian)
--- NOTE | 2017-12-15 15:41 | ED PDOC ---
HPI: Wound Care - HPI Time Seen by Provider: 12/15/17 15:18 Chief Complaint (Nursing): Wound Check Chief Complaint (Provider): Wound Check History Per: Patient Exam Limitations: no limitations Onset/Duration Of Symptoms: Days Current Symptoms Are (Timing): Still Present Additional Complaint(s): Shawna Saini is a 41 year old female with a past medical history of hypertension, diabetes, and hypercholesterolemia, who is presenting to the ER for evaluation of surgical incision where tapes were falling off, s/p appendectomy 3 days ago. Patient states that she was discharged from the hospital yesterday, when she saw the strips coming off. Her PMD recommended she go the ED which prompted her visit. PMD: Destiney Chen Past Medical History Reviewed: Historical Data, Nursing Documentation, Vital Signs Vital Signs: Last Vital Signs Temp 97.8 F 12/15/17 14:46 Pulse 100 H 12/15/17 14:46 Resp 16 12/15/17 14:46 BP 144/76 12/15/17 14:46 Pulse Ox 99 12/15/17 14:46 - Medical History PMH: Diabetes, HTN, Hypercholesterolemia Denies: HIV, Chronic Kidney Disease - Surgical History Surgical History: (x1) - Family History Family History: States: Unknown Family Hx - Immunization History Hx Tetanus Toxoid Vaccination: No Hx Influenza Vaccination: No Hx Pneumococcal Vaccination: No - Home Medications Home Medications: Ambulatory Orders Medication Instructions Recorded Atorvastatin [Lipitor] 20 mg PO HS 07/10/16 Empagliflozin [Jardiance] 25 mg PO DAILY 07/10/16 Valsartan [Diovan] 160 mg PO DAILY 07/10/16 Glipizide [Glipizide ER] 2.5 mg PO DAILY 08/27/17 - Allergies Allergies/Adverse Reactions: Allergies Allergy/AdvReac Type Severity Reaction Status Date / Time ciprofloxacin [From Cipro] Allergy RASH Verified 07/10/16 11:38 ciprofloxacin HCl Allergy RASH Verified 07/10/16 11:38 [From Cipro] Review of Systems ROS Statement: Except As Marked, All Systems Reviewed And Found Negative Constitutional: Negative for: Fever Gastrointestinal: Positive for: Other (steri strips falling off abdominal incision ) Physical Exam - Reviewed Nursing Documentation Reviewed: Yes Vital Signs Reviewed: Yes - Physical Exam Appears: Positive for: Non-toxic, No Acute Distress Head Exam: Positive for: ATRAUMATIC, NORMAL INSPECTION, NORMOCEPHALIC Skin: Positive for: Normal Color Neck: Positive for: Normal Gastrointestinal/Abdominal: Positive for: Other (umbellical incision has missing , (-) active bleeding, (-) discharge, (-) signs of infection) Extremity: Positive for: Normal ROM. Negative for: Deformity, Swelling - ECG O2 Sat by Pulse Oximetry: 99 (RA) Pulse Ox Interpretation: Normal Medical Decision Making Medical Decision Making: Provider applied missing steri strips to umbilical incision. Scribe Attestation: Documented by Vanesa Matamoros, acting as a scribe for Migel Mitchell PA-C Provider Scribe Attestation: All medical record entries made by the Scribe were at my direction and personally dictated by me. I have reviewed the chart and agree that the record accurately reflects my personal performance of the history, physical exam, medical decision making, and the department course for this patient. I have also personally directed, reviewed, and agree with the discharge instructions and disposition. Disposition - Clinical Impression Clinical Impression: Wound disruption, post-op, skin - Patient ED Disposition Is Patient to be Admitted: No Doctor Will See Patient In The: Office Counseled Patient/Family Regarding: Diagnosis, Need For Followup - Disposition Referrals: [facility] [Outside] Disposition: Routine/Home Disposition Time: 15:40 Condition: GOOD Instructions: Wound Dehiscence (DC) Forms: [employer] (Urdu) - POA Location Of Wound: laparoscopy incisions; appear without infection drainage or discharge/bleeding
== END 2017-12-15 16:40 | disposition home or self-care (01) ==
LOC: H.ER 14:41
DX: Z48.01 Encounter for change or removal of surgical wound dressing (principal); T81.31XA Disruption of external operation (surgical) wound, not elsewhere classified, initial encounter; E11.9 Type 2 diabetes mellitus without complications; I10 Essential (primary) hypertension; Z79.84 Long term (current) use of oral hypoglycemic drugs; E78.00 Pure hypercholesterolemia, unspecified

== ENCOUNTER 2018-03-20 11:49 | Inpatient (IN) | payer MEDICAID ==
[2018-03-20 11:49] VITALS: BMI 37.0
--- NOTE | 2018-03-20 13:09 | ED PDOC ---
Upper Extremity Pain/Injury Chief Complaint (Provider): Pain/weakness on Left arm/leg History Per: Patient History/Exam Limitations: no limitations Onset/Duration Of Symptoms: Hrs (2:00 am ) Current Symptoms Are (Timing): Still Present Quality: Sharp Severity: Severe Pain Scale Rating Of: 8 Exacerbating Factor(s): Movement Additional History Per: Patient Additional Complaint(s): Pt is a 42 yo f with pmh of dm, htn present today due to pain/weakenss on left side of her body. Pt state that she had this pain that woke her up at 2 am in the morning, Pt state that when she woke up she feel sever pain, and could not stand on her leg. Pt also state that she feel weak on Left upper and lower limp , and loss of sensation. Pt denies having headache, change in vision, change in speech, confusion, LOC, trauma, fever, nausea, vomit, Chest pain, SOB, abdominal pain, diarrhea, or constipation but does complain of dysuria. PCP : Dr Emily Johnson PMH : DM, HTN PSH: Appendectomy, partial gastroctemy <Uvaldo Machado - Last Filed: 03/20/18 16:10> <Jaren Vela - Last Filed: 03/23/18 20:22> Time Seen by Provider: 03/20/18 13:06 Chief Complaint (Nursing): Upper Extremity Problem/Injury Past Medical History Vital Signs: Last Vital Signs Temp 97 F L 03/20/18 12:13 Pulse 95 H 03/20/18 12:13 Resp 03/20/18 12:13 BP 144/65 03/20/18 12:13 Pulse Ox 98 03/20/18 12:13 - Medical History PMH: Diabetes, HTN, Hypercholesterolemia Denies: HIV, Chronic Kidney Disease - Surgical History Surgical History: (x1) - Family History Family History: States: Unknown Family Hx - Immunization History Hx Tetanus Toxoid Vaccination: No Hx Influenza Vaccination: No Hx Pneumococcal Vaccination: No <Uvaldo Machado - Last Filed: 03/20/18 16:10> Reviewed: Historical Data, Nursing Documentation, Vital Signs Vital Signs: Last Vital Signs Temp 97 F L 03/20/18 12:13 Pulse 95 H 03/20/18 12:13 Resp 03/20/18 12:13 BP 144/65 03/20/18 12:13 Pulse Ox 98 03/20/18 13:45 - Living Arrangements Living Arrangements: With Family - Social History Alcohol: None Drugs: Denies <Jaren Vela - Last Filed: 03/23/18 20:22> - Home Medications Home Medications: Ambulatory Orders Medication Instructions Recorded Valsartan [Diovan] 160 mg PO DAILY 07/10/16 Atorvastatin [Lipitor] 80 mg PO DAILY #14 tab 03/23/18 Ondansetron [Zofran Tab] 8 mg PO TID PRN #20 tab 03/23/18 - Allergies Allergies/Adverse Reactions: Allergies Allergy/AdvReac Type Severity Reaction Status Date / Time ciprofloxacin [From Cipro] Allergy RASH Verified 07/10/16 11:38 ciprofloxacin HCl Allergy RASH Verified 07/10/16 11:38 [From Cipro] Review of Systems Constitutional: Positive for: Weakness. Negative for: Fever, Chills Eyes: Negative for: Pain ENT: Negative for: Ear Pain Cardiovascular: Negative for: Chest Pain, Light Headedness Respiratory: Negative for: Cough, Shortness of Breath, SOB with Exertion Gastrointestinal: Negative for: Nausea, Vomiting, Abdominal Pain, Constipation Genitourinary Female: Positive for: Dysuria. Negative for: Frequency Musculoskeletal: Positive for: Neck Pain, Shoulder Pain, Arm Pain, Leg Pain Neurological: Positive for: Weakness, Numbness. Negative for: Incoordination, Change in Speech, Headache <Uvaldo Machado - Last Filed: 03/20/18 16:10> Physical Exam - Reviewed Nursing Documentation Reviewed: Yes Vital Signs Reviewed: Yes - Physical Exam Appears: Positive for: Well, Non-toxic, Uncomfortable Head Exam: Positive for: ATRAUMATIC, NORMAL INSPECTION, NORMOCEPHALIC Skin: Positive for: Normal Color, Warm, Dry Neck: Positive for: Normal, Limited ROM, Pain On Movement Of Neck Cardiovascular/Chest: Positive for: Regular Rate, Rhythm, Chest Non Tender Respiratory: Positive for: Normal Breath Sounds. Negative for: Decreased Breath Sounds, Accessory Muscle Use, Crackles, Rales, Stridor, Wheezing Gastrointestinal/Abdominal: Positive for: Normal Exam, Bowel Sounds, Soft Extremity: Positive for: Tenderness, Other (Severe pain on Left upper/lower extremeties, limited ROM, weakness due to pain? loss of sensation compared to Right leg. ) Neurologic/Psych: Positive for: Alert, Oriented, Motor/Sensory Deficits (loss of sensation on left arm/leg ), Mood/Affect. Negative for: Facial Droop <Uvaldo Machado - Last Filed: 03/20/18 16:10> - Reviewed Nursing Documentation Reviewed: Yes Vital Signs Reviewed: Yes (WNL) <Jaren Vela - Last Filed: 03/23/18 20:22> - Laboratory Results Result Diagrams: 03/20/18 13:26 03/20/18 13:26 - ECG O2 Sat by Pulse Oximetry: 98 <Uvaldo Machado - Last Filed: 03/20/18 16:10> - Laboratory Results Result Diagrams: 03/23/18 04:20 03/23/18 04:20 - ECG ECG: Positive for: Interpreted By Me, Viewed By Me Pulse Ox Interpretation: Normal - Progress ED Course And Treament: Accession No. : [id number] Patient Name / ID : ELISE HOOPER / [id number] Exam Date : 03/20/2018 13:12:18 ( Approved ) Study Comment : Sex / Age : F / 42Y Creator : Rosendo Castrejon MD Dictator : Physician Assistant : Reimbursement Coordinator : Rosendo Castrejon MD Approver2 : Report Date : 03/20/2018 13:28:55 My Comment : Date of service: 03/20/2018 PROCEDURE: CT HEAD WITHOUT CONTRAST. HISTORY: POSSIBLE CODE STROKE COMPARISON: None available. TECHNIQUE: Axial computed tomography images were obtained through the head/brain without intravenous contrast. Radiation dose: Total exam DLP = 814.15 mGy-cm. This CT exam was performed using one or more of the following dose reduction techniques: Automated exposure control, adjustment of the mA and/or kV according to patient size, and/or use of iterative reconstruction technique. FINDINGS: HEMORRHAGE: No acute parenchymal, subarachnoid or extra-axial possible hemorrhage. BRAIN: No mass effect or edema. No atrophy or chronic microvascular ischemic changes. Note made of partially empty sella. VENTRICLES: Unremarkable. No hydrocephalus. CALVARIUM: Unremarkable. PARANASAL SINUSES: Unremarkable as visualized. No significant inflammatory changes. MASTOID AIR CELLS: Unremarkable as visualized. No inflammatory changes. OTHER FINDINGS: Apparent left cataract surgery. Questionable right cataract surgery. IMPRESSION: No acute intracranial hemorrhage. Findings discussed with Dr. Vela at 1:27 p.m. with written down and read back verification. Time: 1608 XRs as interpreted by me: Left humerous x-ray showed no acute distress, no fracture. Left hip/pelvis x-ray showed no acute distress, no fracture. Scribe Attestation: Documented by Lucero Angulo acting as a scribe for Dr. Jaren Vela MD. Provider Scribe Attestation: All medical record entries made by the Scribe were at my direction and personally dictated by me. I have reviewed the chart and agree that the record accurately reflects my personal performance of the department course for this patient. I have also personally directed, reviewed, and agree with the discharge instructions and disposition. I performed the hx and physical exam of the patient and discussed their mgt with the RESIDENT. I reviewed the RESIDENT's NOTE and agree with the assessment and plan of care. code stroke was activated due to patient's symptoms resident spoke to [employer] [facility] neurologists, who states pt is NOT a candidate for tPA (symptoms do not support TIA/CVA), recommend continued medical evaluation pt/family are made aware of pt's medical results agrees with admission Re-evaluation Time: 14:00 Condition: Re-examined, Improving,but remains with symptoms - Core Measure Core Measure Indicators: Code Stroke - Critical Care Total Time (In Min): 35 Comments: critical care time: 35min, excluding procedure time, excluding time teaching residents/students/mid-level providers; including initial eval/diagnosis, diagnostic interpretation, re-eval, consultations, final disposition <Jaren Vela - Last Filed: 03/23/18 20:22> Medical Decision Making Medical Decision Making: Time : 13:40 Pt is 42 yo f with pmh of DM and HTN present to ER due to pain/weakness on left arm/leg Code Stroke was run BP :166/83 Ct scan: No acute hemorrhage asprin 325mg asprin was given after ct scan finding Neuro on the case Xray of left hemour and left hip Plan F/U CBC CMB CK total U/A admit pt to floor Time 14:44 Pt is 42 yo f with PMH of DM and HTN present to ER due to pain/weakness on left arm/leg Code stoke was run Vital : WNL except temp 97, pulse 95 Physical Exam: Pt still complain of pain/weakness and loss of sensation without improvement. Lab: WNL except K 3.4, Cr 0.6 glucose 135 Pt will be admited on medical reina Neuro is on the case Xray no acute change Plan Transport pt to floor. <Uvaldo Machado - Last Filed: 03/20/18 16:10> Disposition Discussed With : Cory Matta Doctor Will See Patient In The: ED Counseled Patient/Family Regarding: Studies Performed <Uvaldo Machado - Last Filed: 03/20/18 16:10> - Patient ED Disposition Is Patient to be Admitted: Yes Counseled Patient/Family Regarding: Diagnosis, Need For Followup - Disposition Disposition Time: 14:00 - Pt Status Changed To: Hospital Disposition Of: Observation <Jaren Vela - Last Filed: 03/23/18 20:22> - Clinical Impression Clinical Impression: Weakness of left arm, Numbness and tingling in left arm - Disposition Condition: STABLE - PA / CIRCULATION TENDER / Resident Statement / has reviewed & agrees with the documentation as recorded. VARGAS has examined the patient and agrees with the treatment plan. <Jaren Vela - Last Filed: 03/23/18 20:22>
--- NOTE | 2018-03-20 13:35 | CT ---
Date of service: 03/20/2018 PROCEDURE: CT HEAD WITHOUT CONTRAST. HISTORY: POSSIBLE CODE STROKE COMPARISON: None available. TECHNIQUE: Axial computed tomography images were obtained through the head/brain without intravenous contrast. Radiation dose: Total exam DLP = 814.15 mGy-cm. This CT exam was performed using one or more of the following dose reduction techniques: Automated exposure control, adjustment of the mA and/or kV according to patient size, and/or use of iterative reconstruction technique. FINDINGS: HEMORRHAGE: No acute parenchymal, subarachnoid or extra-axial possible hemorrhage. BRAIN: No mass effect or edema. No atrophy or chronic microvascular ischemic changes. Note made of partially empty sella. VENTRICLES: Unremarkable. No hydrocephalus. CALVARIUM: Unremarkable. PARANASAL SINUSES: Unremarkable as visualized. No significant inflammatory changes. MASTOID AIR CELLS: Unremarkable as visualized. No inflammatory changes. OTHER FINDINGS: Apparent left cataract surgery. Questionable right cataract surgery. IMPRESSION: No acute intracranial hemorrhage. Findings discussed with Dr. Vela at 1:27 p.m. with written down and read back verification.
[2018-03-20 13:39] LABS: BASO % 0.7 % (0.0-2.0); EOS % 0.6 % (0.0-4.0); HEMOGLOBIN 12.2 g/dL (12.0-16.0); LYMPH % 39.9 % (20.0-40.0); MEAN CELL VOLUME 90.5 fl (81.0-99.0); MEAN CORPUSCULAR HEMOGLOBIN 30.8 pg (27.0-31.0); MEAN CORPUSCULAR HGB CONC 34.1 g/dL (33.0-37.0); MEAN PLATELET VOLUME 8.4 fl (7.2-11.7); MONO # 0.3 K/uL (0.0-0.8); MONO % 5.4 % (0.0-10.0); NEUT # 2.7 K/uL (1.8-7.0); NEUT % 53.4 % (50.0-75.0); NRBC % 0.1 % (0.0-0.0); RBC 3.96 Mil/uL (3.80-5.20); WHITE BLOOD COUNT 5.1 K/uL (4.8-10.8)
[2018-03-20 13:41] LABS: ALB/GLOB RATIO 1.3 (1.0-2.1); ALBUMIN 4.4 g/dL (3.5-5.0); ALT/SGPT 46 U/L (9-52); AST/SGOT 25 U/L (14-36); BLOOD UREA NITROGEN 12 mg/dl (7-17); CALCIUM 9.4 mg/dL (8.4-10.2); GFR AFRICAN-AMERICAN > 60; GFR NON-AFRICAN AMERICAN > 60
[2018-03-20 13:46] LABS: INR 1.1 (0.9-1.2); PARTIAL THROMBOPLASTIN TIME 33.7 Seconds (25.6-37.1); PROTHROMBIN TIME 12.1 Seconds (9.8-13.1)
[2018-03-20] MEDS ORDERED: Potassium Chloride 20 mEq ER Tab PO ONE ×2 (14:31→14:51)
--- NOTE | 2018-03-20 15:04 | CP.PCM.CON ---
History of Present Illness - History of Present Illness History of Present Illness: 42 yr old woman who is here for acute onset left arm and leg numbness starting several hours ago, now with severe pain, and inability to lift up her left arm, and with numbness in her left leg. Miss Saini is purely ukrainian speaking, so history is obtained through contracts advisor and chart. She denies trauma , or lifting heavy weights. She says that she woke suddenly to experience left arm weakness. Denies aphasia, dysarthria, headache, blurriness of vision. PMH/PSH: as above FH/SH: . Has several children All: nkdagait is ON exam: aaox3. PERRL. CN 2-12 normal. motor: left arm is about 3/5 and she cannot adduct her without great pain, and her leg is about 4/5, but this may be limited by effort. There is no decreased in sensation in either upper or lower limb. no dysmetria, no tremor, gait is wide based. Past Patient History - Infectious Disease Hx of Infectious Diseases: None - Past Medical History & Family History Past Medical History?: Yes - Past Social History Smoking Status: Never Smoked - CARDIAC Hx Hypercholesterolemia: Yes Hx Hypertension: Yes - PULMONARY Hx Respiratory Disorders: No - NEUROLOGICAL Hx Neurological Disorder: No - HEENT Hx HEENT Problems: No - RENAL Hx Chronic Kidney Disease: No - ENDOCRINE/METABOLIC Hx Endocrine Disorders: Yes Hx Diabetes Mellitus Type 2: Yes - HEMATOLOGICAL/ONCOLOGICAL Hx Human Immunodeficiency Virus (HIV): No - INTEGUMENTARY Hx Dermatological Problems: No - MUSCULOSKELETAL/RHEUMATOLOGICAL Hx Falls: No - GASTROINTESTINAL Hx Gastrointestinal Disorders: No - GENITOURINARY/GYNECOLOGICAL Hx Genitourinary Disorders: No - PSYCHIATRIC Hx Psychophysiologic Disorder: No Hx Substance Use: No - SURGICAL HISTORY Hx Surgeries: Yes Hx Section: Yes (x1) Hx Gastric Bypass Surgery: Yes - ANESTHESIA Hx Anesthesia: Yes Hx Anesthesia Reactions: No Hx Malignant Hyperthermia: No Meds Allergies/Adverse Reactions: Allergies Allergy/AdvReac Type Severity Reaction Status Date / Time ciprofloxacin [From Cipro] Allergy RASH Verified 07/10/16 11:38 ciprofloxacin HCl Allergy RASH Verified 07/10/16 11:38 [From Cipro] Results - Vital Signs Recent Vital Signs: Last Vital Signs Temp 97 F L 03/20/18 12:13 Pulse 95 H 03/20/18 12:13 Resp 20 03/20/18 12:13 BP 144/65 03/20/18 12:13 Pulse Ox 98 03/20/18 15:00 - Labs Result Diagrams: 03/22/18 04:20 03/22/18 04:20 Labs: Laboratory Results - last 24 hr 03/20/18 03/20/18 03/20/18 13:26 13:26 13:26 WBC 5.1 RBC 3.96 Hgb 12.2 Hct 35.8 MCV 90.5 D MCH 30.8 MCHC 34.1 RDW 13.0 Plt Count 253 MPV 8.4 Neut % (Auto) 53.4 Lymph % (Auto) 39.9 [place] % (Auto) 5.4 Eos % (Auto) 0.6 Baso % (Auto) 0.7 Neut # (Auto) 2.7 Lymph # (Auto) 2.0 [place] # (Auto) 0.3 Eos # (Auto) 0.0 Baso # (Auto) 0.0 PT 12.1 INR 1.1 APTT 33.7 Sodium 141 Potassium 3.4 L Chloride 105 Carbon Dioxide 23 Anion Gap 16 BUN 12 Creatinine 0.6 L Est GFR ( Amer) > 60 Est GFR (Non-Af Amer) > 60 Random Glucose 135 H Calcium 9.4 Total Bilirubin 0.5 AST 25 ALT 46 Alkaline Phosphatase 44 Total Protein 7.8 Albumin 4.4 Globulin 3.4 Albumin/Globulin Ratio 1.3 Assessment & Plan - Assessment and Plan (Free Text) Assessment: 42 yr old woman who may be having stroke in the internal capsule, right side , with a component of frozen 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 We will obtain MRI Brain to confirm stroke, but i also recommend an orthopedic consult. Plan: 1. MRI brain 2. If positive, then patient will need stroke workup. Thank you Dr. Miller
[2018-03-20] MEDS ORDERED: Oxycodone/Acetaminophen 5/325 mg Tab PO STA (15:10)
[2018-03-20 15:34] LABS: SQUAMOUS EPITHIAL 4 /hpf (0-5); URINE BILIRUBIN NEGATIVE (NEGATIVE); URINE BLOOD MODERATE (NEGATIVE); URINE CLARITY SLIGHTY-CLOUDY (Clear); URINE COLOR YELLOW (YELLOW); URINE GLUCOSE (UA) NEG (Normal); URINE LEUKOCYTE ESTERASE SMALL Leu/uL (Negative); URINE PROTEIN NEGATIVE (NEGATIVE)
[2018-03-20] MEDS ORDERED: Oxycodone/Acetaminophen 5/325 mg Tab ONE (16:13)
--- NOTE | 2018-03-20 17:14 | RAD ---
PROCEDURE: Radiographs of the left humerus. HISTORY: pain on left shoulder COMPARISON: None. FINDINGS: BONES: Normal. No fracture or focal lesion. SOFT TISSUES: There is a small curvilinear calcification within the soft tissues adjacent to the humeral head consistent with calcific tendinitis Soft tissues otherwise unremarkable OTHER FINDINGS: None. IMPRESSION: No acute fractures. Findings suggest calcific tendinitis as detailed above
--- NOTE | 2018-03-20 17:16 | RAD ---
PROCEDURE: Left Hip X-ray Radiographs. HISTORY: Hip pain on left COMPARISON: None. FINDINGS: BONES: Normal. No fracture. JOINTS: Joint spaces preserved. No significant osteoarthritis. SOFT TISSUES: Tiny elliptical shaped calcifications seen within the soft tissues adjacent to the greater trochanter likely representing enthesophyte formation. Mild vascular calcifications are present. Soft tissues are otherwise unremarkable. OTHER FINDINGS: None. IMPRESSION: No acute displaced fracture nor dislocation.
[2018-03-20 19:47] LABS: T4 7.82 ug/dl (5.5-11.0)
[2018-03-20 20:00] LABS: T3 0.989 nmol/L (1.49-2.60)
[2018-03-21 08:54] LABS: HEMOGLOBIN 11.8 g/dL (12.0-16.0); MEAN CELL VOLUME 90.5 fl (81.0-99.0); MEAN CORPUSCULAR HEMOGLOBIN 31.3 pg (27.0-31.0); MEAN CORPUSCULAR HGB CONC 34.6 g/dL (33.0-37.0); RBC 3.77 Mil/uL (3.80-5.20); RED CELL DISTRIBUTION WIDTH 13.2 % (11.5-14.5); WHITE BLOOD COUNT 4.9 K/uL (4.8-10.8)
[2018-03-21] MEDS: Enoxaparin 40 mg Syringe SC SCH (09:12)
--- NOTE | 2018-03-21 09:42 | CP.PCM.PN ---
Subjective - Date & Time of Evaluation Date of Evaluation: 03/21/18 Time of Evaluation: 09:22 - Subjective Subjective: Ms. Saini was seen and examined at the bedside. She is alert, oriented, speaks mainly Serbian, utilized staff for interpretation. She denies any headache, dizziness, lightheadeness. She is able to participate during assessment with asymmetrical sensation in her face and lower extremities and equal sensation in her bilateral upper extremities. She further cannot lift/ raise her left upper extremity and move her left lower extremity. She is just concern with her inability to meet her left side. After 1 hour, the staff called informing me of patient is having episode of nausea and vomiting. The last pain medications given was early this morning which is tylenol. Objective - Vital Signs/Intake and Output Vital Signs (last 24 hours): Temp Pulse Resp BP Pulse Ox 97.8 F 80 18 104/63 98 03/21/18 08:00 03/21/18 08:00 03/21/18 08:00 03/21/18 08:00 03/21/18 08:00 - Medications Medications: Current Medications Acetaminophen (Tylenol 325mg Tab) 325 mg PO Q4 PRN PRN Reason: Pain, Mild (1-3) Last Admin: 03/21/18 05:38 Dose: 325 mg Atorvastatin Calcium (Lipitor) 80 mg PO DAILY [facility] Last Admin: 03/21/18 09:12 Dose: 80 mg Enoxaparin Sodium (Lovenox) 40 mg SC DAILY [facility] PRN Reason: Protocol Last Admin: 03/21/18 09:12 Dose: 40 mg Ondansetron HCl (Zofran Inj) 4 mg IVP STAT STA Stop: 03/21/18 09:12 Ondansetron HCl (Zofran Inj) 4 mg IVP Q6 PRN PRN Reason: Nausea/Vomiting - Labs Labs: 03/21/18 08:30 03/20/18 13:26 PT 12.1 Seconds (9.8-13.1) 03/20/18 13:26 INR 1.1 (0.9-1.2) 03/20/18 13:26 APTT 33.7 Seconds (25.6-37.1) 03/20/18 13:26 - Constitutional Appears: No Acute Distress - Head Exam Head Exam: NORMAL INSPECTION - Eye Exam Pupil Exam: PERRL - Neurological Exam Neurological Exam: Alert, Awake, Oriented x3 Neuro motor strength exam: Left Upper Extremity: 2/1, Right Upper Extremity: 5, Left Lower Extremity: 2/1, Right Lower Extremity: 5 Additional comments: alert, oriented x3, no dysarthria, with left side weakness and numbness, asymmetrical sensation. Assessment and Plan (1) Left-sided weakness Assessment & Plan: Case discussed with Dr. Miller, continue all current medical regimen. Recommend MRI of the brain without contrast, cervical and lumbar to further evaluate weakness, pain, and numbness, stat CT scan of the head without contrast for immediate evaluation of the brain pathology, zofran 4 mg IV stat dose, blood pressure and glycemic control, keep head of bed elevated at least 30 degrees, hydration. Status: Acute
[2018-03-21 09:51] LABS: ALB/GLOB RATIO 1.3 (1.0-2.1); ALT/SGPT 26 U/L (9-52); AST/SGOT 22 U/L (14-36); BLOOD UREA NITROGEN 9 mg/dl (7-17); CALCIUM 9.1 mg/dL (8.4-10.2); GFR AFRICAN-AMERICAN > 60; GFR NON-AFRICAN AMERICAN > 60
[2018-03-21] MEDS ORDERED: Sodium Chloride 0.9% 1,000 ML IV SCH (10:00)
--- NOTE | 2018-03-21 11:00 | CT ---
Date of service: 03/21/2018 PROCEDURE: CT HEAD WITHOUT CONTRAST. HISTORY: r/o TIA versus side effect of pain medications COMPARISON: Comparison made with prior CT scan of the brain dated 03/20/2018 TECHNIQUE: Axial computed tomography images were obtained through the head/brain without intravenous contrast. Radiation dose: Total exam DLP = 804.20 mGy-cm. This CT exam was performed using one or more of the following dose reduction techniques: Automated exposure control, adjustment of the mA and/or kV according to patient size, and/or use of iterative reconstruction technique. FINDINGS: HEMORRHAGE: No intracranial hemorrhage. BRAIN: No evidence large acute infarct. Note the possibility of a small hyperacute infarct cannot be excluded on this study. No mass effect or edema. No atrophy or chronic microvascular ischemic changes. Note again made of partially empty sella. . VENTRICLES: Unremarkable. No hydrocephalus. CALVARIUM: Unremarkable. PARANASAL SINUSES: Unremarkable as visualized. No significant inflammatory changes. MASTOID AIR CELLS: Unremarkable as visualized. No inflammatory changes. OTHER FINDINGS: None. IMPRESSION: No acute intracranial hemorrhage. No significant interval change since prior study
--- NOTE | 2018-03-21 18:52 | HP ---
CHIEF COMPLAINT: Left-sided pain and altered sensation. HISTORY OF PRESENT ILLNESS: This is a 42-year-old female known case of elevated cholesterol and obesity, who was having pain and altered sensation on the left side. So, the patient was brought to the emergency room and was admitted for further management. Review of systems at this time is still positive for significant pain in her left upper extremity and left lower extremity, but no weakness, altered sensation it is almost resolved. PAST MEDICAL HISTORY: Significant for elevated cholesterol. PAST SURGICAL HISTORY: Remarkable for weight loss surgery. PERSONAL HISTORY: The patient is currently nonsmoker and nondrinker. No substance abuse. MEDICATIONS: The patient is on atorvastatin. ALLERGIES: THE PATIENT IS NOT ALLERGIC TO ANY MEDICATIONS. FAMILY HISTORY: Noncontributory. REVIEW OF SYSTEMS: Otherwise negative for headache, dizziness, syncope,loss of consciousness, chest pain, shortness of breath, nausea, vomiting, diarrhea, or constipation. Review of systems of all other organ systems is unremarkable. PHYSICAL EXAMINATION GENERAL: A well-built, well-nourished, overweight 42-year-old female in no acute distress. VITAL SIGNS: Temperature afebrile, pulse 80, respirations 18, and blood pressure 136/76. HEENT: Pupils reacting to light. No nystagmus. Normocephalic and atraumatic scalp. NECK: No JVD, no thyromegaly, and no lymphadenopathy. HEART: S1, S2 normal, regular. No significant murmur, gallop, or rub is heard. LUNGS: Show good bilateral air exchange. No rales or rhonchi. ABDOMEN: Soft and nontender. No organomegaly. No fluid. Bowel sounds are present and normal. EXTREMITIES: No edema. No calf swelling. No tenderness. No acute ischemia. RIPRAP WORKER: The patient is alert, awake, and oriented x3. There is no sign of any acute gross focal motor or sensory neurological deficit. The patient has pain on left upper and lower extremities, but there is no hyperalgesia or paresthesia or changes in her ribs/replaces are bilateral equal and symmetric. DIAGNOSTIC DATA: Available diagnostic data reviewed. CAT scan of the head did not reveal any acute event. ADMITTING IMPRESSION: Transient ischemic attack, cerebrovascular accident, elevated cholesterol, and morbid obesity. PLAN: As ordered. Case and plan discussed with the patient. Telemetry monitoring does not reveal significant arrhythmia. Cory Matta MD [facility] # [id number]
[2018-03-22 06:23] LABS: HEMOGLOBIN 10.7 g/dL (12.0-16.0); MEAN CELL VOLUME 91.4 fl (81.0-99.0); MEAN CORPUSCULAR HEMOGLOBIN 31.2 pg (27.0-31.0); MEAN CORPUSCULAR HGB CONC 34.1 g/dL (33.0-37.0); RBC 3.45 Mil/uL (3.80-5.20); RED CELL DISTRIBUTION WIDTH 12.8 % (11.5-14.5); WHITE BLOOD COUNT 4.1 K/uL (4.8-10.8)
[2018-03-22 07:04] LABS: ALB/GLOB RATIO 1.1 (1.0-2.1); ALBUMIN 3.2 g/dL (3.5-5.0); ALT/SGPT 21 U/L (9-52); AST/SGOT 17 U/L (14-36); BLOOD UREA NITROGEN 9 mg/dl (7-17); CALCIUM 8.2 mg/dL (8.4-10.2); GFR AFRICAN-AMERICAN > 60; GFR NON-AFRICAN AMERICAN > 60
[2018-03-22 07:37] LABS: T3 UPTAKE 39.9 % (23.0-41.0); T4 6.49 ug/dl (5.5-11.0)
[2018-03-22 07:51] LABS: T3 0.801 nmol/L (1.49-2.60)
--- NOTE | 2018-03-22 09:23 | CP.PCM.PN ---
Subjective - Date & Time of Evaluation Date of Evaluation: 03/22/18 Time of Evaluation: 09:22 - Subjective Subjective: Ms. Saini was seen and examined at the bedside. She is alert, oriented, speaks mainly Azeri, utilized staff for interpretation. She denies any headache, dizziness, lightheadedness. She is able to participate during assessment with asymmetrical sensation in her face and lower extremities and equal sensation in her bilateral upper extremities. She further cannot lift/ raise her left upper extremity and move her left lower extremity. She is just concern with her inability to meet her left side. CT scan of the head done yesterday showed no acute findings.There was no untoward events overnight. Objective - Vital Signs/Intake and Output Vital Signs (last 24 hours): Temp Pulse Resp BP Pulse Ox 97.9 F 69 18 105/69 96 03/22/18 07:58 03/22/18 07:58 03/22/18 07:58 03/22/18 07:58 03/22/18 07:58 - Medications Medications: Current Medications Acetaminophen (Tylenol 325mg Tab) 325 mg PO Q4 PRN PRN Reason: Pain, Mild (1-3) Last Admin: 03/22/18 06:18 Dose: 325 mg Atorvastatin Calcium (Lipitor) 80 mg PO DAILY [facility] Last Admin: 03/21/18 09:12 Dose: 80 mg Enoxaparin Sodium (Lovenox) 40 mg SC DAILY [facility] PRN Reason: Protocol Last Admin: 03/21/18 09:12 Dose: 40 mg Ondansetron HCl (Zofran Inj) 4 mg IVP Q6 PRN PRN Reason: Nausea/Vomiting - Labs Labs: 03/22/18 04:20 03/22/18 04:20 PT 12.1 Seconds (9.8-13.1) 03/20/18 13:26 INR 1.1 (0.9-1.2) 03/20/18 13:26 APTT 33.7 Seconds (25.6-37.1) 03/20/18 13:26 - Constitutional Appears: No Acute Distress - Head Exam Head Exam: NORMAL INSPECTION - Eye Exam Pupil Exam: PERRL - Neurological Exam Neurological Exam: Alert, Awake, Oriented x3 Neuro motor strength exam: Left Upper Extremity: 2/1, Right Upper Extremity: 5, Left Lower Extremity: 2/1, Right Lower Extremity: 5 Additional comments: neurological unchanged from previous examination. Assessment and Plan (1) Left-sided weakness Assessment & Plan: Case discussed with Dr. Smalls, continue all current medical regimen. Recommend MRI of the brain without contrast, cervical and lumbar to further evaluate weakness, pain, and numbness, blood pressure and glycemic control, keep head of bed elevated at least 30 degrees, hydration. Status: Acute
--- NOTE | 2018-03-22 09:36 | PN ---
DATE: 03/22/2018 SUBJECTIVE: The patient is seen and examined. Interim events noted. Consults noted and appreciated. Neurology followup and interventions noted and appreciated. The patient remains in progressive care unit on telemetry monitoring. Still complains of pain and weakness on left side. No new complaints. No chest pain. No shortness of breath. PHYSICAL EXAMINATION: GENERAL: The patient is no acute distress. VITAL SIGNS: Stable. HEART: S1 and S2. Normal and regular. LUNGS: Good bilateral air exchange. ABDOMEN: Soft and nontender. EXTREMITIES: No calf swelling. No tenderness. No active ischemia. No edema. EARLY CHILDHOOD AIDE CLASSROOM: The patient does seem to have left-sided decrease in movement, which could be partially from pain on the right side, no acute finding. DIAGNOSTIC DATA: Available diagnostic data reviewed. CAT scan of head is unremarkable without any signs of acute CVA. Telemetry monitoring does not reveal significant arrhythmia. ASSESSMENT AND PLAN: Overall, the patient's general medical condition is stable. Plan as ordered. Cory Matta MD
[2018-03-22] MEDS: Enoxaparin 40 mg Syringe SC SCH (10:43)
--- NOTE | 2018-03-22 12:19 | MRI ---
Date of service: 03/22/2018 PROCEDURE: MRI BRAIN WITHOUT CONTRAST HISTORY: New onset of left side weakness COMPARISON: Noncontrast head CT from 03/21/2018 TECHNIQUE: Multiplanar, multisequence MR images of the brain were obtained without intravenous contrast enhancement. FINDINGS: HEMORRHAGE: None DWI: No evidence of an acute or early subacute infarction. BRAIN PARENCHYMA: There are mild chronic microangiopathic changes. There is no mass, mass effect or abnormal extra-axial fluid collection. There is no territorial infarction. The midline sagittal structures are normal. VENTRICLES: There is mild age advanced global parenchymal volume loss and proportionate enlargement of the ventricles and cortical sulci. CRANIUM: There is normal bone marrow signal pattern. ORBITS: Grossly unremarkable. PARANASAL SINUSES/MASTOIDS: There is mild mucosal thickening in the right maxillary sinus. The remaining included paranasal sinuses are predominantly clear. There is a right mastoid effusion. The left mastoid air cells are clear. VASCULAR SYSTEM: Macro scrotal voidsSkull base flow voids intact. OTHER FINDINGS: None. IMPRESSION: No acute intracranial abnormality. Specifically, no evidence for acute infarction or demyelination. Mild age advanced global parenchymal volume loss. Right mastoid effusion.
--- NOTE | 2018-03-22 14:41 | MRI ---
MRI left humerus History: Pain. Comparison: Plain x-ray dated 03/20/2018 Technique: Multi-echo multiplanar sequences were performed through the left humerus without the use of intravenous contrast. Findings: Please note this was not a dedicated evaluation of the left shoulder. If there is concern for inability to lift the arm or shoulder pathology, correlation with shoulder MRI is recommended. Failure of fat suppression at the level of the proximal and distal humerus limits evaluation. No evidence of signal abnormality within the visualized osseous marrow of the humerus at the additional levels. Visualized musculature surrounding the humerus appears grossly preserved. Visualized subcutaneous soft tissues appear preserved. Limited evaluation of the left glenohumeral joint space demonstrates narrowing of the glenohumeral joint space with some cartilage thinning. There may be some signal abnormality within the posterior left glenoid labrum. Again correlation with shoulder MR is recommended for further evaluation of this region if clinically indicated. In correlation with the plain x-ray, the suspected calcific tendinopathy noted on the plain x-ray is not well delineated on this study. Correlation with shoulder MRI would be helpful to better evaluate for possible calcific tendinopathy and or rotator cuff pathology. Questionable small left elbow joint effusion. If there is concern for elbow pathology, correlation with elbow MRI may be helpful if clinically indicated. Impression: Please note this was not a dedicated evaluation of the left shoulder. If there is concern for inability to lift the arm or shoulder pathology, correlation with shoulder MRI is recommended. 1. Failure of fat suppression at the level of the proximal and distal humerus limits evaluation. No evidence of signal abnormality within the visualized osseous marrow of the humerus at the additional levels. 2. Limited evaluation of the left glenohumeral joint space demonstrates narrowing of the glenohumeral joint space with some cartilage thinning. There may be some signal abnormality within the posterior left glenoid labrum. Again correlation with shoulder MR is recommended for further evaluation of this region if clinically indicated. 3. In correlation with the plain x-ray, the suspected calcific tendinopathy noted on the plain x-ray is not well delineated on this study. Correlation with shoulder MRI would be helpful to better evaluate for possible calcific tendinopathy and or rotator cuff pathology. 4. Questionable small left elbow joint effusion. If there is concern for elbow pathology, correlation with elbow MRI may be helpful if clinically indicated.
[2018-03-23 06:09] LABS: HEMOGLOBIN 10.5 g/dL (12.0-16.0); MEAN CELL VOLUME 90.8 fl (81.0-99.0); MEAN CORPUSCULAR HEMOGLOBIN 30.6 pg (27.0-31.0); MEAN CORPUSCULAR HGB CONC 33.7 g/dL (33.0-37.0); RBC 3.44 Mil/uL (3.80-5.20); RED CELL DISTRIBUTION WIDTH 12.6 % (11.5-14.5); WHITE BLOOD COUNT 4.2 K/uL (4.8-10.8)
[2018-03-23 06:27] LABS: BLOOD UREA NITROGEN 9 mg/dl (7-17); GFR AFRICAN-AMERICAN > 60; GFR NON-AFRICAN AMERICAN > 60
[2018-03-23 06:28] LABS: ALB/GLOB RATIO 1.2 (1.0-2.1); ALBUMIN 3.1 g/dL (3.5-5.0); ALT/SGPT 22 U/L (9-52); AST/SGOT 17 U/L (14-36); CALCIUM 8.4 mg/dL (8.4-10.2)
--- NOTE | 2018-03-23 07:35 | CP.PCM.PN ---
Addendum entered and electronically signed by Yessenia Leong MD 03/23/18 12:17: PLEASE DISREGARD DOCUMENT. Pt d/c Original Note: <Yessenia Leong - Last Filed: 03/23/18 07:39> Subjective - Date & Time of Evaluation Date of Evaluation: 03/23/18 Time of Evaluation: 07:34 - Subjective Subjective: No acute overnight events. Pt states that she is feeling well. Pain on LUE improving but continues to endorse weakness. Denies chest pain, dyspnea, palpitations and remains afebrile. Objective - Vital Signs/Intake and Output Vital Signs (last 24 hours): Temp Pulse Resp BP Pulse Ox 97.6 F 82 18 112/74 98 03/23/18 05:00 03/23/18 05:00 03/23/18 05:00 03/23/18 05:00 03/23/18 05:00 - Medications Medications: Current Medications Acetaminophen (Tylenol 325mg Tab) 325 mg PO Q4 PRN PRN Reason: Pain, Mild (1-3) Last Admin: 03/22/18 06:18 Dose: 325 mg Atorvastatin Calcium (Lipitor) 80 mg PO DAILY [facility] Last Admin: 03/22/18 10:43 Dose: 80 mg Enoxaparin Sodium (Lovenox) 40 mg SC DAILY [facility] PRN Reason: Protocol Last Admin: 03/22/18 10:43 Dose: 40 mg Ondansetron HCl (Zofran Tab) 8 mg PO TID [facility] Last Admin: 03/22/18 18:49 Dose: Not Given Potassium Chloride (K-Dur 20 Meq Er Tab) 40 meq PO ONCE ONE Stop: 03/23/18 07:32 - Labs Labs: 03/23/18 04:20 03/23/18 04:20 PT 12.1 Seconds (9.8-13.1) 03/20/18 13:26 INR 1.1 (0.9-1.2) 03/20/18 13:26 APTT 33.7 Seconds (25.6-37.1) 03/20/18 13:26 - Constitutional Appears: No Acute Distress - Head Exam Head Exam: ATRAUMATIC - Eye Exam Eye Exam: EOMI, Normal appearance - ENT Exam ENT Exam: Mucous Membranes Moist - Respiratory Exam Respiratory Exam: Clear to Ausculation Bilateral, NORMAL BREATHING PATTERN. absent: Wheezes - Cardiovascular Exam Cardiovascular Exam: REGULAR RHYTHM - GI/Abdominal Exam GI & Abdominal Exam: Soft, Normal Bowel Sounds. absent: Tenderness - Extremities Exam Extremities Exam: Normal Inspection. absent: Calf Tenderness, Pedal Edema Additional comments: LUE weaker then RUE. Sensation intact b/l Assessment and Plan - Assessment and Plan (Free Text) Assessment: 42 YO female with PMHx of HLD and obesity is admitted for L sided weakness. -plan as ordered -neuro on board; recs appreciated -pending official read of MRI spine <Matta,Cory K - Last Filed: 03/24/18 14:22> Objective - Vital Signs/Intake and Output Vital Signs (last 24 hours): Temp Pulse Resp BP Pulse Ox 98.1 F 85 20 117/76 96 03/23/18 12:48 03/23/18 12:48 03/23/18 12:48 03/23/18 12:48 03/23/18 12:48 - Labs Labs: 03/23/18 04:20 03/23/18 04:20 PT 12.1 Seconds (9.8-13.1) 03/20/18 13:26 INR 1.1 (0.9-1.2) 03/20/18 13:26 APTT 33.7 Seconds (25.6-37.1) 03/20/18 13:26 Assessment and Plan - Assessment and Plan (Free Text) Assessment: Patient was personally seen and examined by me in rounds with residents. Available labs and diagnostic data reviewed. Case, Patient's condition and management plan discussed with residents in rounds. Agree with resident's progress note. Plan: As ordered.
[2018-03-23] MEDS: Enoxaparin 40 mg Syringe SC SCH (08:49)
[2018-03-23 08:50] VITALS: RESP 20
[2018-03-23] MEDS: Potassium Chloride 20 mEq ER Tab PO ONE ×2 (08:56→11:32)
[2018-03-23] MEDS ORDERED: Potassium Chloride 20 mEq/15 ml LIQ UD PO ONE (11:50)
--- NOTE | 2018-03-23 12:20 | CP.PCM.DIS ---
Provider - Provider Date of Admission: 03/21/18 18:08 Attending physician: Cory Matta MD Time Spent in preparation of Discharge (in minutes): 20 Diagnosis - Discharge Diagnosis (1) Left-sided weakness Status: Acute (2) Obesity Status: Chronic Priority: Low Hospital Course - Lab Results Lab Results: Most Recent Lab Values WBC 4.2 K/uL (4.8-10.8) L 03/23/18 04:20 RBC 3.44 Mil/uL (3.80-5.20) L 03/23/18 04:20 Hgb 10.5 g/dL (12.0-16.0) L 03/23/18 04:20 Hct 31.2 % (34.0-47.0) L 03/23/18 04:20 MCV 90.8 fl (81.0-99.0) 03/23/18 04:20 MCH 30.6 pg (27.0-31.0) 03/23/18 04:20 MCHC 33.7 g/dL (33.0-37.0) 03/23/18 04:20 RDW 12.6 % (11.5-14.5) 03/23/18 04:20 Plt Count 226 K/uL (130-400) 03/23/18 04:20 MPV 8.4 fl (7.2-11.7) 03/20/18 13:26 Neut % (Auto) 53.4 % (50.0-75.0) 03/20/18 13:26 Lymph % (Auto) 39.9 % (20.0-40.0) 03/20/18 13:26 Anderson % (Auto) 5.4 % (0.0-10.0) 03/20/18 13:26 Eos % (Auto) 0.6 % (0.0-4.0) 03/20/18 13:26 Baso % (Auto) 0.7 % (0.0-2.0) 03/20/18 13:26 Neut # (Auto) 2.7 K/uL (1.8-7.0) 03/20/18 13:26 Lymph # (Auto) 2.0 K/uL (1.0-4.3) 03/20/18 13:26 Anderson # (Auto) 0.3 K/uL (0.0-0.8) 03/20/18 13:26 Eos # (Auto) 0.0 K/uL (0.0-0.7) 03/20/18 13:26 Baso # (Auto) 0.0 K/uL (0.0-0.2) 03/20/18 13:26 PT 12.1 Seconds (9.8-13.1) 03/20/18 13:26 INR 1.1 (0.9-1.2) 03/20/18 13:26 APTT 33.7 Seconds (25.6-37.1) 03/20/18 13:26 Sodium 140 mmol/l (132-148) 03/23/18 04:20 Potassium 3.4 MMOL/L (3.6-5.0) L 03/23/18 04:20 Chloride 107 mmol/L (98-107) 03/23/18 04:20 Carbon Dioxide 21 mmol/L (22-30) L 03/23/18 04:20 Anion Gap 15 (10-20) 03/23/18 04:20 BUN 9 mg/dl (7-17) 03/23/18 04:20 Creatinine 0.6 mg/dl (0.7-1.2) L 03/23/18 04:20 Est GFR ( Amer) > 60 03/23/18 04:20 Est GFR (Non-Af Amer) > 60 03/23/18 04:20 POC Glucose (mg/dL) 79 mg/dL (65-110) 03/23/18 11:19 Random Glucose 65 mg/dL (65-105) 03/23/18 04:20 Hemoglobin A1c 5.3 % (4.2-6.5) 03/21/18 08:30 Calcium 8.4 mg/dL (8.4-10.2) 03/23/18 04:20 Total Bilirubin 0.4 mg/dl (0.2-1.3) 03/23/18 04:20 AST 17 U/L (14-36) 03/23/18 04:20 ALT 22 U/L (9-52) 03/23/18 04:20 Alkaline Phosphatase 34 U/L (38-126) L 03/23/18 04:20 Total Creatine Kinase 43 U/L (30-135) 03/20/18 15:01 Total Protein 5.8 G/DL (6.3-8.2) L 03/23/18 04:20 Albumin 3.1 g/dL (3.5-5.0) L 03/23/18 04:20 Globulin 2.7 gm/dL (2.2-3.9) 03/23/18 04:20 Albumin/Globulin Ratio 1.2 (1.0-2.1) 03/23/18 04:20 Triglycerides 100 mg/DL (0-149) 03/20/18 18:46 Cholesterol 159 mg/dL (0-199) 03/20/18 18:46 LDL Cholesterol Direct 86 mg/dL (0-129) 03/20/18 18:46 HDL Cholesterol 37 MG/DL (30-70) 03/20/18 18:46 Vitamin B12 522 pg/mL (239-931) 03/21/18 08:30 Thyroxine (T4) 6.49 ug/dl (5.5-11.0) 03/22/18 06:20 Total T3 0.801 nmol/L (1.49-2.60) L 03/22/18 06:20 T3 Uptake 39.9 % (23.0-41.0) 03/22/18 06:20 TSH 3rd Generation 0.35 mIU/ML (0.46-4.68) L 03/21/18 08:30 Urine Color Yellow (YELLOW) 03/20/18 15:03 Urine Clarity Slighty-cloudy (Clear) 03/20/18 15:03 Urine pH 6.0 (5.0-8.0) 03/20/18 15:03 Ur Specific [place] 1.017 (1.003-1.030) 03/20/18 15:03 Urine Protein Negative mg/dL (NEGATIVE) 03/20/18 15:03 Urine Glucose (UA) Neg mg/dL (Normal) 03/20/18 15:03 Urine Ketones 20 mg/dL (NEGATIVE) 03/20/18 15:03 Urine Blood Moderate (NEGATIVE) 03/20/18 15:03 Urine Nitrate Negative (NEGATIVE) 03/20/18 15:03 Urine Bilirubin Negative (NEGATIVE) 03/20/18 15:03 Urine Urobilinogen 2.0 mg/dL (0.2-1.0) H 03/20/18 15:03 Ur Leukocyte Esterase Small Landy/uL (Negative) 03/20/18 15:03 Urine RBC (Auto) 19 /hpf (0-3) H 03/20/18 15:03 Urine Microscopic WBC 6 /hpf (0-5) H 03/20/18 15:03 Ur Squamous Epith Cells 4 /hpf (0-5) 03/20/18 15:03 Urine HCG, Qual Negative (NEGATIVE) 03/21/18 16:43 - Hospital Course Hospital Course: 42 YO female with PMHx of HLD and obesity is admitted for L sided weakness. Neurology was consulted, MRI imaging are all negative for any acute pathologies. Pt is clinically stable and symptoms have improved. Pt okay to be discharged home per neurology, to be d/c home with follow up with PMD. D/c meds as ordered. Discharge Exam - Head Exam Head Exam: ATRAUMATIC - Eye Exam Eye Exam: EOMI, Normal appearance - Respiratory Exam Respiratory Exam: Clear to PA & Lateral. absent: Wheezes - Cardiovascular Exam Cardiovascular Exam: REGULAR RHYTHM, +S1, +S2 - GI/Abdominal Exam GI & Abdominal Exam: Normal Bowel Sounds, Soft. absent: Tenderness - Extremities Exam Extremities exam: full ROM (no weakness noted b/l, stregth 5/5 in the upper and lower extremities b/l. Sensory intact ), normal inspection - Neurological Exam Neurological exam: Alert, Oriented x3 - Psychiatric Exam Psychiatric exam: Normal Mood Discharge Plan - Discharge Medications Prescriptions: Atorvastatin [Lipitor] 80 mg PO DAILY #14 tab Ondansetron [Zofran Tab] 8 mg PO TID PRN #20 tab PRN Reason: Nausea/Vomiting - Follow Up Plan Condition: STABLE Disposition: HOME/ ROUTINE Additional Instructions: pt. cleared for discharge to Home today by and All MRI results discussed with patient, pt. will full ROM, denies numbness, tinglilng n/v/d today E rx for meds sent to [facility] pt. will f/u with pmd in 1 week Referrals: Lei Smalls MD [Medical Doctor] - Asiya Burnett MD [Non-Staff] -
[2018-03-23 12:49] VITALS: BP 117/76; PULSE 85; TEMP 98.1; O2SAT 96
--- NOTE | 2018-03-23 13:24 | MRI ---
Date of service: 03/22/2018 PROCEDURE: MR LUMBAR SPINE WITHOUT CONTRAST HISTORY: inability to move left lower extremity/ pain COMPARISON: None available. TECHNIQUE: Multiecho multiplanar sequences were performed through the lumbar spine without the use of intravenous contrast. FINDINGS: There is normal alignment of the lumbar vertebral bodies. There is normal lumbar lordosis. There is no acute fracture, spondylolysis or spondylolisthesis. Bone marrow signal is within normal limits. The conus medullaris terminates at a normal level and the nerve roots cauda equina are normal. The paraspinous soft tissues are normal. Imaged portion of the retroperitoneum is grossly within normal limits. T12-L1: No disc herniation, spinal canal stenosis or neural foraminal narrowing. L1-2: No disc herniation, spinal canal stenosis or neural foraminal narrowing. L2-3: No disc herniation, spinal canal stenosis or neural foraminal narrowing. L3-4: There is a small left foraminal disc protrusion. Mild bilateral facet arthropathy contributes to mild left neural foraminal narrowing. No central spinal canal stenosis. L4-5: Mild posterior disc bulge without central spinal canal stenosis. Moderate bilateral facet arthropathy without neural foraminal narrowing. L5-S1: Left paracentral annular tear and disc protrusion which contacts the traversing left S1 nerve root without central spinal canal stenosis. Mild bilateral facet arthropathy contribute to mild left neural foraminal narrowing. OTHER FINDINGS: None. IMPRESSION: Mild multilevel degenerative disc disease, worse at L5-S1 with left paracentral annular tear and disc protrusion which contacts the traversing left S1 nerve root. Mild bilateral facet arthropathy contribute to mild left neural foraminal narrowing. No central spinal canal stenosis. Small left foraminal disc protrusion at L3-4. No spinal canal stenosis. A preliminary report was provided by [employer].
--- NOTE | 2018-03-23 14:05 | MRI ---
Date of service: 03/22/2018 PROCEDURE: MR CERVICAL SPINE WITHOUT CONTRAST HISTORY: inability to lift left uppwer extremity COMPARISON: None available. TECHNIQUE: Multiecho multiplanar sequences were performed through the cervical spine without the use of intravenous contrast. FINDINGS: There is straightening of the cervical spine with loss of normal cervical lordosis. Vertebral alignment is normal. Vertebral height is maintained. There is no acute fracture or spondylolisthesis. Bone marrow signal is within normal limits. The craniocervical junction is normal. The atlantoaxial joint is normal. The cervical cord is normal in contour, caliber and has normal intrinsic signal. The paraspinous soft tissues are normal. C2-C3: No disc herniation, spinal canal stenosis or neural foraminal narrowing. C3-C4: No disc herniation, spinal canal stenosis or neural foraminal narrowing. C4-C5: Broad-based disc osteophyte complex with asymmetric left uncovertebral joint hypertrophy and resultant mild left neural foraminal narrowing. No spinal canal stenosis. C5-C6: Broad-based disc osteophyte complex without spinal canal stenosis or neural foraminal narrowing. C6-C7: Broad-based disc osteophyte complex and asymmetric left uncovertebral joint hypertrophy result in mild left neural foraminal narrowing. No spinal canal stenosis. C7-T1: Broad-based disc osteophyte complex and asymmetric left uncovertebral joint hypertrophy result in moderate left neural foraminal narrowing. No spinal canal stenosis. OTHER FINDINGS: None. IMPRESSION: Mild multilevel degenerative disc disease in the lower cervical spine, worse at C6-7 and C7-T1 with mild to moderate left neural foraminal narrowing. No spinal canal stenosis. Straightening of the cervical spine may be positional or related to muscle spasm. A preliminary report was provided by [email or web address].
--- NOTE | 2018-03-27 07:54 | PQF ---
PROVIDER RESPONSE TEXT: TIA REVIEWER QUERY TEXT: Clarification of Clinical Diagnostic Findings After the work up is completed: Etiology of the left sided weakness ? if known OR: Unable to determine 03/20 Neuro consult: may be having stroke in the internal capsule, right side, with a component of frozen 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 We will obtain MRI Brain to confirm stroke, but i also recommend an orthopedic consult. 03/22 Attending progress note: CAT scan of head is unremarkable without any signs of acute CVA 03/23 Attending progress note: admitted for L sided weakness; pending official read of MRI spine The patient's Clinical Indicators include: xxxx Query created by: Cheli Vidal on 03/23/2018 10:42 AM Electronically signed by: Cory Matta 03/27/2018 7:51 AM
== END 2018-03-23 14:49 | disposition home or self-care (01) | DRG 832 ==
LOC: H.ER 11:49 → H.ERHOLD 16:05 → H.TEL 17:50 → OBSVTOIN 03-21 18:08
PROVIDERS: ADMIT Internal Medicine; ATTEND Internal Medicine
DX: G45.9 Transient cerebral ischemic attack, unspecified (principal); R53.1 Weakness; E66.09 Other obesity due to excess calories; Z68.30 Body mass index [BMI] 30.0-30.9, adult; Z98.84 Bariatric surgery status; E11.9 Type 2 diabetes mellitus without complications; I10 Essential (primary) hypertension; E78.00 Pure hypercholesterolemia, unspecified; E78.5 Hyperlipidemia, unspecified; Z88.3 Allergy status to other anti-infective agents; M75.02 Adhesive capsulitis of left shoulder

== ENCOUNTER 2018-12-16 12:18 | Emergency (ER) | payer BC, MEDICAID ==
[2018-12-16 12:19] VITALS: BMI 37.0
[2018-12-16 13:02] VITALS: O2SAT 99
--- NOTE | 2018-12-16 13:25 | ED PDOC ---
Lower Extremity Pain/Injury Time Seen by Provider: 12/16/18 13:10 Chief Complaint (Nursing): Lower Extremity Problem/Injury Chief Complaint (Provider): Back Pain, Left Thigh Pain History Per: Patient History/Exam Limitations: no limitations Onset/Duration Of Symptoms: Days (x1) Current Symptoms Are (Timing): Still Present Additional Complaint(s): 42 year old female presents to the ED for evaluation of left lower back pain radiating down to left knee with pain most notably to the thigh since yesterday, worse with movement, getting up, and walking. Patient states the pain started while she was walking, and denies any injury / trauma. Last night, she reports taking Gabapentin with minimal relief, but the pain worsened overnight while laying in bed, prompting eval. Otherwise, denies swelling, numbness, saddle anesthesia, urinary symptoms, and fecal or urinary incontinence. PMD: Destiney Chen Past Medical History Reviewed: Historical Data, Nursing Documentation, Vital Signs Vital Signs: Last Vital Signs Temp 97.8 F 12/16/18 12:59 Pulse 102 H 12/16/18 12:59 Resp 20 12/16/18 12:59 BP 145/57 L 12/16/18 12:59 Pulse Ox 99 12/16/18 12:59 - Medical History PMH: Diabetes, HTN, Hypercholesterolemia Denies: HIV, Chronic Kidney Disease - Surgical History Surgical History: (x1) Other surgeries: bariatric surgery - Family History Family History: States: Unknown Family Hx - Social History Current smoker - smoking cessation education provided: No - Immunization History Hx Tetanus Toxoid Vaccination: No Hx Influenza Vaccination: No Hx Pneumococcal Vaccination: No - Home Medications Home Medications: Ambulatory Orders Medication Instructions Recorded Valsartan [Diovan] 160 mg PO DAILY 07/10/16 Atorvastatin [Lipitor] 80 mg PO DAILY #14 tab 03/23/18 Ondansetron [Zofran Tab] 8 mg PO TID PRN #20 tab 03/23/18 Cyclobenzaprine [Cyclobenzaprine 10 mg PO Q8H PRN #15 tab 12/16/18 HCl] Naproxen 500 mg PO Q12H PRN #30 tab 12/16/18 - Allergies Allergies/Adverse Reactions: Allergies Allergy/AdvReac Type Severity Reaction Status Date / Time ciprofloxacin [From Cipro] Allergy RASH Verified 07/10/16 11:38 ciprofloxacin HCl Allergy RASH Verified 07/10/16 11:38 [From Cipro] Review of Systems ROS Statement: Except As Marked, All Systems Reviewed And Found Negative Genitourinary Female: Negative for: Dysuria, Frequency, Incontinence Musculoskeletal: Positive for: Back Pain (left lower back into left leg worse with movement) Neurological: Negative for: Numbness, Other (saddle anesthesia) Physical Exam - Reviewed Nursing Documentation Reviewed: Yes Vital Signs Reviewed: Yes - Physical Exam Appears: Positive for: No Acute Distress Head Exam: Positive for: ATRAUMATIC, NORMAL INSPECTION, NORMOCEPHALIC Skin: Positive for: Normal Color, Warm. Negative for: Rash Eye Exam: Positive for: Normal appearance Neck: Positive for: Normal, Painless ROM, Supple Cardiovascular/Chest: Positive for: Regular Rate, Rhythm Respiratory: Positive for: Normal Breath Sounds. Negative for: Respiratory Distress Gastrointestinal/Abdominal: Positive for: Normal Exam, Soft. Negative for: Tenderness Back: Positive for: Normal Inspection (no ecchymosis, erythema, or break in skin integrity). Negative for: L CVA Tenderness, R CVA Tenderness, Vertebral Tenderness Extremity: Positive for: Normal ROM (all extremities), Tenderness (point tenderness to left upper rectus femoris, (-) rashes, swelling, redness, break in skin integrity) Neurological/Psych: Positive for: Awake, Alert, Oriented (x3). Negative for: Motor/Sensory Deficits - ECG O2 Sat by Pulse Oximetry: 99 (RA) Pulse Ox Interpretation: Normal Medical Decision Making Medical Decision Making: Time: 1316 Initial Impression: back pain, left leg pain Initial Plan: --U-preg --Flexeril 10mg PO / Toradol 30mg IM (pt not driving home) --Reevaluation 16:24 FINDINGS: 2-D, color and duplex Doppler analysis of the lower extremity venous circulation using routine protocol from the femoral veins through the popliteal veins. Venous compressibility: Normal. Flow and augmentation patterns: Normal. Visualized veins upper third of calf: Normal. Rodriguez cyst: None. IMPRESSION: No sonographic or Doppler evidence for DVT in left lower extremity. 17:00 Took patient in examination room and examined her left thigh. There was point tenderness running along lateral left thigh. Left femoral pulse 2+. Inflammation to the Iliotibialband. Patient will be discharged with a prescription of T oradol and Flexeril. Follow up with PMD if pain does not improve. Return parameters discussed. Negative for DVT Scribe Attestation: Documented by Jenny Kaba, acting as a scribe for Ita Luevano APN. Provider Scribe Attestation: All medical record entries made by the Scribe were at my direction and personally dictated by me. I have reviewed the chart and agree that the record accurately reflects my personal performance of the history, physical exam, medical decision making, and the department course for this patient. I have also personally directed, reviewed, and agree with the discharge instructions and disposition. Scribe Attestation: Documented by Ciro Lee, acting as a scribe for TANNER LynnN. Provider Scribe Attestation: All medical record entries made by the Scribe were at my direction and personally dictated by me. I have reviewed the chart and agree that the record accurately reflects my personal performance of the history, physical exam, medical decision making, and the department course for this patient. I have also personally directed, reviewed, and agree with the discharge instructions and disposition. Disposition - Clinical Impression Clinical Impression: Leg pain, lateral - Patient ED Disposition Is Patient to be Admitted: No Counseled Patient/Family Regarding: Diagnosis, Need For Followup, Rx Given - Disposition Disposition: Routine/Home Disposition Time: 17:00 Condition: STABLE Prescriptions: Cyclobenzaprine [Cyclobenzaprine HCl] 10 mg PO Q8H PRN #15 tab PRN Reason: Muscle Spasm Naproxen 500 mg PO Q12H PRN #30 tab PRN Reason: Pain, Moderate (4-7) Instructions: Muscle and Bone Pain (DC), Lower Extremity Exercises Seated Forms: [facility] (Telugu) Print Language: YAKUT - POZe Present On Arrival: None
--- NOTE | 2018-12-16 16:37 | US ---
Date of service: 12/16/2018 HISTORY: LEFT UPPER THIGH PAIN. PRIORS: None. FINDINGS: 2-D, color and duplex Doppler analysis of the lower extremity venous circulation using routine protocol from the femoral veins through the popliteal veins. Venous compressibility: Normal. Flow and augmentation patterns: Normal. Visualized veins upper third of calf: Normal. Rodriguez cyst: None. IMPRESSION: No sonographic or Doppler evidence for DVT in left lower extremity.
[2018-12-16 17:22] VITALS: BP 122/78; PULSE 78; RESP 18; TEMP 98
== END 2018-12-16 17:20 | disposition home or self-care (01) ==
LOC: H.ER 12:18
DX: M79.606 Pain in leg, unspecified (principal); E11.9 Type 2 diabetes mellitus without complications; E78.00 Pure hypercholesterolemia, unspecified; I10 Essential (primary) hypertension; Z88.1 Allergy status to other antibiotic agents
CPT/HCPCS: 81025; 82948; 93971; 96372; 99283; J1885